=== PATIENT | male | born 1975 | race Caucasian/White ===

== ENCOUNTER → 2021-04-17 13:21 | Outpatient (CLI) | payer BC, SELFPAY | PROVIDERS: Visit Provider Nurse Practitioner | DX: U07.1 COVID-19 (principal) | CPT/HCPCS: C9803; U0003; U0005 ==

== ENCOUNTER 2022-04-28 10:50 | Emergency (ER) | payer BC, SELFPAY ==
[2022-04-28 11:10] VITALS: BP 144/86; PULSE 83; RESP 18; TEMP 37; O2SAT 98; BMI 27.3
--- NOTE | 2022-04-28 11:41 | EXP.UTC ---
Discharge Plan Disposition Patient Disposition: Home, Self-Care Condition: Good Prescriptions Prescriptions: New sulfamethoxazole-trimethoprim [Bactrim DS] 800-160 mg tablet 1 tab PO BID 7 Days Qty: 14 0RF No Action prednisone 5 MG tablets,dose pack 5 mg PO UD DOSE PK Qty: 21 0RF Referrals Follow up/Referrals: Provider,Referral, [Primary Care Provider] - See instructions Activity Restrictions/Add. Instructions Additional Instructions/Restrictions: *Monitor Temp, Over the counter Motrin or Tylenol as directed/as needed Tylenol every 4 hours and Motrin every 6 hours (as long as your family doctor has told you that you can take it) for fever or pain. and straight to ER if unable to lower temp less than 101.0 after medication given *Warm salt water gargles may help to soothe the throat *Throat Lozenges *Warm fluids like tea with honey may help to soothe the throat *Sleep elevated *Humidifier/Vaporizer Your throat swab was sent for culture. Those results are typically sent to your primary care. Be sure to follow up in 2-3 days with your family doctor/primary care physician if no improvement so they can review those result and treat if necessary. If you don?t have a primary care doctor, I recommend you get one but in the mean time, you will have to return to a walk in clinic Follow up IMMEDIATELY for new or worsening symptoms or no Noticeable improvement over the next 48-72 hours. 911 for difficulty breathing or swallowing Clinical Impressions Clinical Impression: Swelling of lymph node Stand Alone Forms Stand Alone Forms: Work/School Release Instructions Patient Instructions: Sore Throat, Trimethoprim/Sulfamethoxazole (Alternative Therapy) Discharge ED Provider: Estrella Dumont [facility] HPI General Stated complaint: Rt side of neck swollen, tender Mode of Arrival: Ambulatory Source of Information: Patient Limitations: No Limitations Time Seen by Provider: 04/28/22 11:41 Description of Symptoms (Recalled from Triage Doc. by RN): PATIENT C/O PAIN TO RIGHT NECK RADIATING TO JAW HEENT Symptoms (Recalled from RN notes): Yes Resp Symptoms (Recalled from RN notes): No Skin Symptoms (Recalled from RN notes): No MS Symptoms (Recalled from RN notes): No Functional Status (Recalled from RN notes): WNL History of Present Illness Provider Complaint: Patient states that he has sore area on the right side of his neck that when touched or he swallows shoots pain into his jaw at times States that he feels like he has a swollen area there States that he wasnt sure if he may have a bad tooth, swollen lymph node or something States that at times the right side of his throat hurts when he swallows States that he isnt having any difficulty swallowing or anything just hurts Related Data Previous Rx's Medication Instructions Recorded prednisone 5 mg tablets in a dose 5 mg PO UD DOSE PK ##21 09/05/18 pack sulfamethoxazole 800 1 tab PO BID 7 days #14 tabs 04/28/22 mg-trimethoprim 160 mg tablet (Bactrim DS) Allergies Allergy/AdvReac Type Severity Reaction Status Date / Time penicillin G [PENICILLIN G] Allergy Mild Verified 08/19/18 12:04 Worker's Comp Is this a Worker's Comp case?: No [facility] Disclaimer: The information contained in this section may have been updated after the patient was seen, as this information can be updated by other users. Medical History (Updated 04/28/22 @ 12:16 by Estrella Dumont APRN) H/O pilonidal cyst Social History (Updated 04/28/22 @ 11:17 by Micki Castorena RN) Smoking Status: Never smoker alcohol intake: never substance use type: denies use current occupational status: employed Travel in the last 8 weeks: None ROS Obtained: Yes All systems reviewed & no additional complaints except as documented and Yes Systems reviewed as appropriate & no additional complaints except as documented Constitutional Constitutional: Reports system reviewed and no a
[2022-04-28 11:46] LABS: UTC Strep Screen (Rapid) Negative (Negative)
[2022-04-28 12:22] VITALS: BP 144/86; PULSE 83; RESP 18; TEMP 37; O2SAT 98
== END 2022-04-28 12:25 | disposition home or self-care (01) ==
PROVIDERS: Emergency Provider Nurse Practitioner
DX: R59.0 Localized enlarged lymph nodes (principal)
CPT/HCPCS: 87880; 99212; 99213; G0463

== ENCOUNTER 2022-05-02 11:11 | Emergency (ER) | payer BC, SELFPAY ==
[2022-05-02 11:41] VITALS: BP 149/74; PULSE 68; RESP 16; TEMP 36.4; O2SAT 99; BMI 26.6
--- NOTE | 2022-05-02 12:10 | HMH.EDGENADL ---
Discharge Plan Disposition Patient Disposition: Home, Self-Care Prescriptions Prescriptions: New amoxicillin-pot clavulanate 875-125 mg tablet 1 tab PO BID 10 Days Qty: 20 0RF No Action sulfamethoxazole-trimethoprim [Bactrim DS] 800-160 mg tablet 1 tab PO BID prednisone 5 MG tablets,dose pack 5 mg PO UD DOSE PK Qty: 21 0RF Referrals Follow up/Referrals: Latonya Guzman MD [Primary Care Provider] - See instructions Clinical Impressions Clinical Impression: Acute cervical lymphadenitis Instructions Patient Instructions: DI for Skin Abscess Discharge ED Provider: Vasyl Vyas General Adult HPI General Chief complaint: Skin/Abscess/Foreign Body Stated complaint: Rt side of neck is swollen Time Seen by Provider: 05/02/22 12:10 Mode of Arrival: Ambulatory Source of Information: Patient Limitations: No Limitations Description of Symptoms (Recalled from ER Triage Doc. by RN): pt comes in with right sided neck pain, possible swollen lymph node. symptoms ongoing since 04/27. pt has been seen in [facility] 04/29 and his dentist 04/30. per pt report dentist stated that everything was fine with his teeth. [facility] qa automation developer prescribed bactrim. pt still taking that. History of Present Illness HPI narrative: Patient is a 46-year-old male presenting with unilateral right-sided neck pain and a small area of focal tenderness. States he went to urgent treatment clinic few days ago was prescribed Bactrim and has not had any significant improvement also went to see a dentist was told his dentition was not the cause of this. Denies any night sweats denies any fevers denies any prolonged symptoms associated with this. Denies any recent history of a throat infection or any other respiratory or upper respiratory infections. Related Data Home Medications Medication Instructions Recorded Confirmed sulfamethoxazole 800 1 tab PO BID , 05/02/22 05/02/22 mg-trimethoprim 160 mg tablet (Bactrim DS) Previous Rx's Medication Instructions Recorded prednisone 5 mg tablets in a dose 5 mg PO UD DOSE PK ##21 09/05/18 pack amoxicillin 875 mg-potassium 1 tab PO BID 10 days #20 tabs 05/02/22 clavulanate 125 mg tablet Allergies Allergy/AdvReac Type Severity Reaction Status Date / Time penicillin G [PENICILLIN G] Allergy Mild Verified 05/02/22 11:45 [facility] Disclaimer: The information contained in this section may have been updated after the patient was seen, as this information can be updated by other users. Medical History (Updated 05/02/22 @ 12:29 by Vasyl Vyas MD) H/O pilonidal cyst Social History (Updated 04/28/22 @ 11:17 by Micki Castorena RN) Smoking Status: Current every day smoker alcohol intake: never substance use type: denies use current occupational status: employed Travel in the last 8 weeks: None ROS Obtained: Yes All systems reviewed & no additional complaints except as documented Physical Exam General General appearance: alert and in no apparent distress Head Head exam: atraumatic and normocephalic Neck Neck exam: Present other (Small 1 cm area anterior cervical lymphadenitis no other masses felt posterior pharynx is normal) Respiratory Respiratory exam: Present normal lung sounds bilaterally; Absent respiratory distress, wheezes or stridor Cardiovascular Cardiovascular exam: Present regular rate Neurological Exam Neurological exam: Present alert and oriented X3 Medical Decision Making Kaveh Inquiry Pt receiving controlled substance: No Vital Signs: 05/02/22 11:41 Temperature 97.6 F Temperature Source Oral Pulse Rate [Left] 68 Respiratory Rate 16 Blood Pressure [Right Arm] 149/74 H Blood Pressure Mean [Right Arm] 99 02 Sat by Pulse Oximetry 99 Orders (Tests/Meds): ED MEDICATIONS Generic Name Dose Route Start Last Admin Trade Name Freq PRN Reason Stop Dose Admin Amoxicillin/Clavulanate Potassium 1 each 05/02/22 12:21 05/02/22 12:27 [place]
[2022-05-02 12:50] VITALS: BP 118/74; PULSE 62; RESP 18; O2SAT 98
--- NOTE | 2022-05-02 12:50 | PC.NURSE ---
rounded on pt, no needs at this time
--- NOTE | 2022-05-02 13:09 | INFXCTL.NOTE ---
pt resting no complaint at this time
[2022-05-02 13:13] VITALS: BP 118/74; PULSE 64; O2SAT 100
[2022-05-02 13:15] VITALS: BP 118/74; PULSE 70; RESP 16; TEMP 36.6
== END 2022-05-02 13:17 | disposition home or self-care (01) ==
PROVIDERS: Emergency Provider Student in an Organized Health Care Education/Training Program; PCP Family Medicine
DX: L04.0 Acute lymphadenitis of face, head and neck (principal); F17.210 Nicotine dependence, cigarettes, uncomplicated
CPT/HCPCS: 99283; 99284

== ENCOUNTER → 2022-10-11 23:29 | Outpatient (CLI) | payer BC, SELFPAY ==
[2022-10-11 18:08] LABS: Basophils % 0.2 % (0.1-2.0); Eosinophils # 1.1 K/mm3 (0.0-0.4); Eosinophils % 8.6 % (0.1-12.0); Hemoglobin 13.6 g/dL (14.1-18.0); Lymphocytes # 1.5 K/mm3 (0.7-4.5); Lymphocytes % 11.7 % (10-50); Mean Corpuscular HGB Conc 33.9 g/dL (31.8-35.4); Mean Corpuscular Hemoglobin 27.5 pg (27.0-31.2); Monocytes # 0.9 K/mm3 (0.1-1.0); Neutrophils # 9.2 K/mm3 (1.8-7.8); Neutrophils % 72.5 % (37.0-80.0); Platelet Count 291 K/mm3 (142-424); Red Blood Count 4.94 M/mm3 (4.60-6.20); Red Cell Distribution Width 12.9 % (11.5-17.5); White Blood Count 12.6 K/mm3 (4.8-10.8)
[2022-10-11 18:34] LABS: Erythrocyte Sedimentation Rate 28 mm/hr (0-15)
[2022-10-11 19:26] LABS: Alanine Aminotransferase 28 U/L (12-78); Albumin/Globulin Ratio 1.5 (1.1-1.8); Alkaline Phosphatase 93 U/L (38-126); Anion Gap 14.3 mEq/L (5-15); Aspartate Amino Transferase 30 U/L (17-59); Bilirubin,Total 0.7 mg/dl (0.2-1.3); Blood Urea Nitrogen 9 mg/dl (9-20); Calcium 9.8 mg/dl (8.4-10.2); Carbon Dioxide 29 mmol/L (22.0-30.0); Chloride 103 mmol/L (98-107); Chol/HDL Ratio 4.9 (1-3.5); Cholesterol 183 mg/dl (140-200); Estimated Glomerular Filt Rate 91 ml/min (>60); GFR (African American) 110 ML/MIN (>60); Globulin 2.7 g/dL (1.3-3.2); Glucose 81 mg/dl (74-100); HDL Cholesterol 37 mg/dl (40-60); Potassium 3.3 mmoL/L (3.5-5.1); Sodium 143 mmol/L (136-145); Total Protein,Serum 6.7 g/dl (6.3-8.2); Triglycerides 131 mg/dl (30-150); VLDL Cholesterol 26 mg/dL (0-40)
[2022-10-11 19:37] LABS: C-Reactive Protein 75.4 mg/L (0-4); Direct LDL Cholesterol 113.77 mg/dL (100-129)
[2022-10-11 19:45] LABS: 25-OH Vitamin D, Total 24.4 ng/mL (30-100)
[2022-10-11 19:47] LABS: T4 (Thyroxine) 8.7 ug/dl (5.53-11.0)
[2022-10-11 20:00] LABS: Prostate Specific Ag Screen 1.3 ng/ml (0.0-4.0); Thyroid Stimulating Hormone 0.93 uIU/mL (0.465-4.68)
== END ==
LOC: LAB.DROPOF 23:30
PROVIDERS: PCP Nurse Practitioner Family; Visit Provider Nurse Practitioner Family
DX: R59.9 Enlarged lymph nodes, unspecified (principal); E55.9 Vitamin D deficiency, unspecified; Z12.5 Encounter for screening for malignant neoplasm of prostate
CPT/HCPCS: 80053; 80061; 82306; 84436; 84443; 85025; 85651; 86140; G0103

== ENCOUNTER → 2022-10-25 13:20 | Outpatient (CLI) | payer BC, SELFPAY ==
--- NOTE | 2022-10-25 13:20 | US_ITS ---
FINAL REPORT TECHNIQUE: Real-time grayscale and color ultrasound of the thyroid was performed. CLINICAL HISTORY: right thyroid nodule COMPARISON: None FINDINGS: The thyroid gland measures 49 mm on the right and 42 mm on the left. The isthmus measures 2 mm. The parenchyma is within normal limits. Nodules: No evidence of mass or nodule. IMPRESSION: Unremarkable thyroid ultrasound. Reviewed, Interpreted and Dictated by Daniel Santos III, MD Transcribed by Larissa Jules Authenticated and [facility]
== END ==
PROVIDERS: PCP Nurse Practitioner Family; Visit Provider Nurse Practitioner Family
DX: E04.1 Nontoxic single thyroid nodule (principal)
CPT/HCPCS: 76536

== ENCOUNTER 2023-03-12 10:21 | Emergency (ER) | payer BC, SELFPAY ==
[2023-03-12 10:27] VITALS: BP 152/92; PULSE 98; RESP 18; TEMP 37.2; O2SAT 97; BMI 26.6
[2023-03-12 11:13] LABS: Influenza A, PCR Not Detected (NotDetected); Influenza B, PCR Not Detected (NotDetected)
--- NOTE | 2023-03-12 11:13 | EXP.UTC ---
Discharge Plan Disposition Patient Disposition: Home, Self-Care Condition: Good Prescriptions Prescriptions: No Action No Known Home Medications Referrals Follow up/Referrals: Provider,Referral, MD [Primary Care Provider] - See instructions Activity Restrictions/Add. Instructions Additional Instructions/Restrictions: covid swab was sent to lab, call tomorrow for results. self isolate until test results are known to be negative No sign of a bacterial infection. Likely viral. Viruses can take 7-14 days to run their course. Nasal saline and bulb syringe or nose Tarah to remove nasal drainage to help with nasal congestion. Hard to eat, drink, sleep with nasal congestion so important to keep this cleaned out. Monitor temp. Tylenol or Motrin as needed for pain or fever Encourage fluids, water, Gatorade, Powerade, Pedialyte if /toddler/child Warm salt water gargles Warm fluids Sore throat lozenges Sleep elevated Humidifier/vaporizer Follow-up immediately for new or worsening symptoms or no noticeable improvement over the next 48-72 hours. Clinical Impressions Clinical Impression: Upper respiratory disease, Close exposure to 2019-nCoV Instructions Patient Instructions: DI for Viral Upper Respiratory Infection -- Adult, DI for COVID-19 (Suspected or Confirmed ), How to Care for Someone with COVID-19 Discharge ED Provider: Elena ([facility])Theresa [facility] HPI General Stated complaint: congestion, runny nose, body aches, cough, headach Mode of Arrival: Ambulatory Source of Information: Patient Limitations: No Limitations Time Seen by Provider: 03/12/23 11:13 Description of Symptoms (Recalled from Triage Doc. by RN): WHITTAKER, cough, body aches, and chills. He wa exposed to covid. HEENT Symptoms (Recalled from RN notes): Yes Resp Symptoms (Recalled from RN notes): No Skin Symptoms (Recalled from RN notes): No MS Symptoms (Recalled from RN notes): No Functional Status (Recalled from RN notes): n/a History of Present Illness Provider Complaint: 47 yr old male presents for WHITTAKER, cough, body aches, and chills. He was exposed to covid. Related Data Home Medications Medication Instructions Recorded Confirmed No Known Home Medications 10/11/22 10/31/22 Allergies Allergy/AdvReac Type Severity Reaction Status Date / Time penicillin G [PENICILLIN G] Allergy Mild Verified 03/12/23 11:05 Worker's Comp Is this a Worker's Comp case?: No [facility] Disclaimer: The information contained in this section may have been updated after the patient was seen, as this information can be updated by other users. Medical History , [employer]OR [employer]) Dysphagia H/O pilonidal cyst Lymphadenopathy Social History , [employer]) Smoking Status: Current every day smoker alcohol intake: never substance use type: denies use current occupational status: employed Travel in the last 8 weeks: None ROS Obtained: Yes All systems reviewed & no additional complaints except as documented Constitutional Constitutional: Reports system reviewed and no additional complaints, except as documented, Reports as per HPI, Reports body ache, Reports chills, Reports fatigue and Reports fever(s) Eyes Eyes: Reports system reviewed and no additional complaints, except as documented ENT Ears, Nose, Mouth, and Throat: Reports system reviewed and no additional complaints, except as documented, Reports as per HPI, Reports nasal congestion, Reports nasal discharge, Reports post nasal drip, Reports sinus pressure and Reports sore throat Cardiovascular Cardiovascular: Reports system reviewed and no additional complaints, except as documented Respiratory Respiratory: Reports system reviewed and no additional complaints, except as documented, Reports as per HPI and Reports cough Gastrointestinal Gastrointestingal: Reports system reviewed and no additional complaints, except as documented Integumentary/Breasts Skin/Breast: Reports system reviewed and no additional complaints, except as documented Endocrine Endocrine: Reports system reviewed and no additional complaints, except as documented and Reports fatigue Hematologic/Lymphatic Henatologic/Lymphatic: Reports system reviewed and no additional complaints, except as documented Allergic/Immunologic Allergic/Immunologic: Reports system reviewed and no additional complaints, except as documented Physical Exam General General appearance: alert and in no apparent distress Head Head exam: atraumatic Eye Eye exam: Present normal appearance and PERRL ENT ENT exam: Present normal exam, normal oropharynx, mucous membranes moist and TM's normal bilaterally Respiratory Respiratory exam: Present normal lung sounds bilaterally Cardiovascular Cardiovascular exam: Present regular rate and normal rhythm Neurological Exam Neurological exam: Present alert and oriented X3 Skin Skin exam: Present warm Medical Decision Making Medical Records Medical records reviewed: Yes I reviewed the patient's medical records. Kaveh Inquiry Pt receiving controlled substance: No Kaveh was queried for this patient: No Vital Signs: 03/12/23 10:27 Temperature 98.9 F Temperature Source Oral Pulse Rate [Right Radial] 98 H Respiratory Rate 18 Blood Pressure [Right Arm] 152/92 H Blood Pressure Mean [Right Arm] 112 Blood Pressure Source [Right Arm] Automatic Cuff Blood Pressure Position [Right Arm] Sitting 02 Sat by Pulse Oximetry 97 Oxygen Delivery Method Room Air Lab Data Lab results reviewed: Yes I reviewed the patient's lab results. Orders (Tests/Meds): ORDERS Category Date Time Status Covid-19 Nasal PCR ([facility]) Routine Lab 03/12/23 10:39 Stop Req Rapid PCR Covid and Flu A/B Stat Lab 03/12/23 10:39 Received
[2023-03-12 11:20] LABS: Coronavirus 19, PCR Detected (NotDetected)
[2023-03-12 11:24] VITALS: BP 152/92; PULSE 98; RESP 18; TEMP 37.2; O2SAT 97
== END 2023-03-12 11:24 | disposition home or self-care (01) ==
PROVIDERS: Emergency Provider Nurse Practitioner Family
DX: U07.1 COVID-19 (principal); R51.9 Headache, unspecified; R50.9 Fever, unspecified; J06.9 Acute upper respiratory infection, unspecified; R05.9 Cough, unspecified; R09.81 Nasal congestion; M79.18 Myalgia, other site; R53.83 Other fatigue; R09.82 Postnasal drip; R07.0 Pain in throat; F17.210 Nicotine dependence, cigarettes, uncomplicated
CPT/HCPCS: 87635; 87636; 99212; 99214; G0463

== ENCOUNTER 2023-07-31 12:06 | Outpatient (CLI) | payer BC, SELFPAY ==
[2023-07-31 18:15] LABS: Basophils # 0.1 K/mm3 (0-0.2); Basophils % 0.7 % (0.1-2.0); Eosinophils # 1.1 K/mm3 (0.0-0.4); Eosinophils % 12.2 % (0.1-12.0); Hematocrit 46.4 % (42.0-52.0); Lymphocytes # 1.4 K/mm3 (0.7-4.5); Lymphocytes % 14.8 % (10-50); Mean Corpuscular HGB Conc 32.3 g/dL (31.8-35.4); Mean Corpuscular Hemoglobin 27.5 pg (27.0-31.2); Mean Corpuscular Volume 85.3 fl (80-94); Monocytes # 0.9 K/mm3 (0.1-1.0); Monocytes % 9.2 % (1.7-9.3); Neutrophils # 5.9 K/mm3 (1.8-7.8); Neutrophils % 63.1 % (37.0-80.0); Platelet Count 310 K/mm3 (142-424); Red Blood Count 5.44 M/mm3 (4.60-6.20); Red Cell Distribution Width 13.7 % (11.5-17.5); White Blood Count 9.4 K/mm3 (4.8-10.8)
[2023-07-31 18:31] LABS: Hemoglobin A1C 5.6 % (4.0-6.0)
[2023-07-31 18:34] LABS: Alanine Aminotransferase 42 U/L (12-78); Albumin Level 3.9 g/dl (3.5-5.0); Albumin/Globulin Ratio 1.3 (1.1-1.8); Alkaline Phosphatase 95 U/L (38-126); Anion Gap 13.8 mEq/L (5-15); Aspartate Amino Transferase 34 U/L (17-59); Bilirubin,Total 1.1 mg/dl (0.2-1.3); Blood Urea Nitrogen 9 mg/dl (9-20); Calcium 9.1 mg/dl (8.4-10.2); Carbon Dioxide 29 mmol/L (22.0-30.0); Chloride 102 mmol/L (98-107); Estimated Glomerular Filt Rate 91 ml/min (>60); GFR (African American) 110 ML/MIN (>60); Globulin 2.9 g/dL (1.3-3.2); Glucose 88 mg/dl (74-100); Potassium 3.8 mmoL/L (3.5-5.1); Sodium 141 mmol/L (136-145); Total Protein,Serum 6.8 g/dl (6.3-8.2)
[2023-07-31 18:53] LABS: 25-OH Vitamin D, Total 14.8 ng/mL (30-100)
[2023-07-31 19:06] LABS: Thyroid Stimulating Hormone 0.66 uIU/mL (0.465-4.68)
[2023-07-31 19:25] LABS: Vitamin B12 848 pg/mL (239-931)
== END 2023-07-31 23:59 | disposition home or self-care (01) ==
LOC: LAB.DROPOF 08-01 12:07
PROVIDERS: PCP Nurse Practitioner Family; Visit Provider Nurse Practitioner Family
DX: R53.83 Other fatigue (principal); E55.9 Vitamin D deficiency, unspecified; Z68.29 Body mass index [BMI] 29.0-29.9, adult
CPT/HCPCS: 80053; 82306; 82607; 83036; 84443; 85025

== ENCOUNTER 2023-08-01 15:45 | Outpatient (CLI) | payer BC, SELFPAY ==
[2023-08-01 15:48] LABS: Adenovirus F 40/41, stool Not Detected (NotDetected); Astrovirus Not Detected (NotDetected); Campylobacter Not Detected (NotDetected); Clostridium Difficile A/B, PCR Not Detected (NotDetected); Cryptosporidium Not Detected (NotDetected); Cyclospora Cayetanesis Not Detected (NotDetected); Entamoeba histolytica Not Detected (NotDetected); Enteroaggregative E coli Not Detected (NotDetected); Enteropathogenic E coli Not Detected (NotDetected); Enterotoxigenic E coli Not Detected (NotDetected); Giardia lamblia Not Detected (NotDetected); Norovirus Not Detected (NotDetected); Plesimonas Shigalloides, PCR Not Detected (NotDetected); Rotavirus A Not Detected (NotDetected); Salmonella, PCR Not Detected (NotDetected); Sapovirus Not Detected (NotDetected); Shiga-like toxin E coli Not Detected (NotDetected); Shigella Enterovasive E coli Not Detected (NotDetected); Vibrio Cholerae Not Detected (NotDetected); Vibrio, PCR Not Detected (NotDetected); Yersinia Entercolitica, PCR Not Detected (NotDetected)
== END 2023-08-01 23:59 | disposition home or self-care (01) ==
LOC: LAB 15:46
PROVIDERS: PCP Nurse Practitioner Family; Visit Provider Nurse Practitioner Family
DX: R53.83 Other fatigue (principal); R19.7 Diarrhea, unspecified
CPT/HCPCS: 87507

== ENCOUNTER 2023-11-23 09:14 | Emergency (ER) | payer BC, SELFPAY ==
--- OUTSIDE RECORDS SUMMARY | 2023-11-23 09:18 | XMS_ITS ---
Author Organization [facility] Address [address] [address] Phone Care Team Providers Care Pediatric Lpn Name Role Phone eNal DOLL, Tyson Unavailable [phone] NO, PCP Unavailable Unavailable Reason for Referral Date Encounter Description Provider Reason for Referral 06/14/21 FOLLOW UP/EST DAYANA MARQUEZ PA-C Refe rral To Physician 05/07/21 WC FOLLOW UP/EST DAYANA MARQUEZ PA-C Refe rral To Physician 04/05/21 NEW PATIENT DAYANA MARQUEZ PA-C Referr al To Physician Problems Includes: Active, inactive, and resolved Problems All Visits Onset Date Resolved Date Provider Condition S tatus Lower Back Pain 04/05/2021 DAYANA MARQUEZ PA-C Active Last Documented On 2 1:46PM ; [facility] Plan of Treatment Pending Tests Order Diagnosis Results Due Ordering P rovider Radiology - MRI MRI Lumbar Spine 04/19/21 KATIA MARQUEZ PA-C Last Documented On 2 4:27PM ; [facility] Instructions to patient Intervention and counseling on cessation of tobacco use Last Documented On 2 1:02PM ; [facility] Lose weight Last Documented On 2 1:02PM ; [facility] Intervention and counseling on cessation of tobacco use Last Documented On 2 3:11PM ; [facility] Lose weight Last Documented On 2 3:11PM ; [facility] Intervention and counseling on cessation of tobacco use Last Documented On 2 9:38AM ; [facility] Lose weight Last Documented On 2 9:38AM ; [facility] Intervention and counseling on cessation of tobacco use Last Documented On 2 2:03PM ; [facility] Lose weight Last Documented On 2 1:48PM ; [facility] Assessments Includes: Assessments for all patient encounters No Assessments Recorded Instructions Includes: Instructions for all patient encounters Instructions to patient Intervention and counseling on cessation of tobacco use Last Documented On 2 1:02PM ; [facility] Lose weight Last Documented On 2 1:02PM ; [facility] Intervention and counseling on cessation of tobacco use Last Documented On 2 3:11PM ; [facility] Lose weight Last Documented On 2 3:11PM ; [facility] Intervention and counseling on cessation of tobacco use Last Documented On 2 9:38AM ; [facility] Lose weight Last Documented On 2 9:38AM ; [facility] Intervention and counseling on cessation of tobacco use Last Documented On 2 2:03PM ; [facility] Lose weight Last Documented On 2 1:48PM ; [facility], [facility] Medical Equipment - Implanted Devices Includes: Current and historical Devices No Medical Equipment Recorded Medications Includes: Current and historical Medications Past Medications on file Medrol 4 MG Oral Tablet Ther apy Pack 06/11/2021 - 06/18/2021 Provider: Tyson De Jesus MD Diagnosis: take as directed Last Documented On 2 12:35PM By Jennie Otero ; [facility] Fluticasone Propionate 50 MC G/ACT Nasal Suspension 02/05/2021 - 06/14/2021 Provider: Diagnosis: Last Documented On 2 3:14PM By Alexandra BARBA [facility] Medications Administered Includes: Administered Medications in patient's chart No Administered Medications Recorded Results Includes: Results from 11/22/2022 through 11/23/2023 No Results Recorded For Specified Dates History of Present Illness History of Present Illness not supported for this document type No History of Present Illness Recorded Social History Description Last Updated No caffeine use 05/07/2021 Last Documented On 2 10:12AM ; [facility], [facility] No recent change in diet 05/07/2021 Last Documented On 2 10:12AM ; [facility], [facility] Not using alcohol 05/07/2021 Last Documented On 2 10:12AM ; [facility] Not using drugs 05/07/2021 Last Documented On 2 10:12AM ; [facility], [facility] Smoker 04/05/2021 Last Documented On 2 8:05AM ; [facility], [facility] Yes, current smoker. 04/05/2021 Last Documented On 2 8:05AM ; [facility], [facility] Not exercising regularly 04/05/2021 Last Documented On 2 8:05AM ; [facility], [facility] Smoking Status Unknown Medical History Includes: Medical History in patient's chart Description Last Updated No recent immunization for flu 2 Last Documented On 2 10:12AM ; [facility] No recent immunization for pneumococcal pneumonia 05/07/2021 Last Documented On 2 10:12AM ; [facility] Past medical history non-contributory Last Documented On 2 8:05AM ; [facility], [facility] Past Surgical History: pylanautel cyst r emoved from tail [id number] 04/05/2021 Last Documented On 2 8:05AM ; [facility], [facility] Family History Includes: Family History in patient's chart Description Last Updated No significant family history 05/07/2021 Last Documented On 2 10:12AM ; [facility], [facility] Review of Systems Review of Systems not supported for this document type No Review of Systems Recorded Mental Status No Mental Status Recorded Functional Status No Functional Status Recorded Physical Exam Physical Exam not supported for this document type No Physical Exam Recorded Allergies Includes: Active, inactive, and resolved Allergies Substance Type Reaction Onset Date Resolved Date Statu s Penicillins Allergy 04/05/2021 Active Last Documented On 2 1:02PM ; [facility], [facility] Insurance Includes: Active Insurance Policies Plan Name Member ID Group # Subscriber Relationship Effect hannah Dates 1 - [facility] [id number] RENETTA CARREON Self 01/24/2021 - Unknown Clinical Notes Includes: Signed Clinical Notes starting from 02/21/2022 No Clinical Notes Recorded
--- OUTSIDE RECORDS SUMMARY | 2023-11-23 09:18 | XMS_ITS | Clinical Summary ---
Author Organization [facility] , [facility] Address [address] [place] [address] Phone Care Team Providers Care Director Specialty Name Role Phone Tyson De Jesus MD Unavailable [phone] NO, PCP Unavailable Unavailable Reason for Visit and Chief Complaint WC EPIDURAL INJ Problems Includes: Problems addressed during this encounter and other active Problems All Visits Onset Date Resolved Date Provider Condition S tatus Lower Back Pain 04/05/2021 DAYANA MARQUEZ PA-C Active Last Documented On 2 1:46PM ; [facility] Plan of Treatment No Plan of Treatment Recorded Assessments Includes: Assessments from this encounter No Assessments Recorded Medical Equipment - Implanted Devices Includes: Current Devices No Medical Equipment Recorded Medications Includes: Medications discussed during this encounter and other current Medications No Medications Taken Medications Administered Includes: Administered Medications from this encounter No Administered Medications Recorded Results Includes: Results discussed during this encounter No Results Recorded For Specified Dates History of Present Illness Includes: History of Present Illness from this encounter No History of Present Illness Recorded Social History No Social History Recorded - Smoking Status Unknown Medical History Includes: Medical History addressed during this encounter No Medical History Recorded Family History Includes: Family History addressed during this encounter No Family History Recorded Review of Systems Includes: Review of Systems from this encounter No Review of Systems Recorded Mental Status Includes: Mental Status from this encounter No Mental Status Recorded Functional Status Includes: Functional Status from this encounter No Functional Status Recorded Physical Exam Includes: Physical Exam from this encounter No Physical Exam Recorded Allergies Includes: Active Allergies Substance Type Reaction Onset Date Resolved Date Statu s Penicillins Allergy 04/05/2021 Active Last Documented On 2 1:02PM ; [facility] Encounters Encounter Provider Location Date Check-In Time Check-Out Time Diagnosis WC EPIDURAL INJ Tyson De Jesus MD [facility] 11/24/19 22 11:55AM 12:09PM Insurance Includes: Active Insurance Policies Plan Name Member ID Group # Subscriber Relationship Effect hannah Dates [facility] [id number] RENETTA CARREON Self 01/24/2021 - Unknown Clinical Notes Includes: Clinical Notes from this encounter No Clinical Notes Recorded
--- OUTSIDE RECORDS SUMMARY | 2023-11-23 09:18 | XMS_ITS | Clinical Summary ---
Author Organization [facility] , [facility] Address [address] [place] [address] Phone Care Team Providers Care Warp Spinner Name Role Phone Neal DOLL, Tyson Unavailable [phone] NO, PCP Unavailable Unavailable Reason for Visit and Chief Complaint Epidural Steroid Injection Problems Includes: Problems addressed during this encounter and other active Problems All Visits Onset Date Resolved Date Provider Condition S tatus Lower Back Pain 04/05/2021 DAYANA MARQUEZ PA-C Active Last Documented On 2 1:46PM ; [facility] Plan of Treatment No Plan of [...] Active Last Documented On 2 1:02PM ; [facility] Encounters Encounter Provider Location Date Check-In Time Check-Out Time Diagnosis Epidural Steroid Injection Tyson De Jesus MD 2 4:16PM 11:59PM Insurance Includes: Active Insurance Policies Plan Name Member ID Group # Subscriber Relationship Effect hannah Dates 1 - [facility] [id number] RENETTA CARREON Self 01/24/2021 - Unknown Clinical Notes Includes: Clinical Notes from this encounter No Clinical Notes Recorded
--- OUTSIDE RECORDS SUMMARY | 2023-11-23 09:18 | XMS_ITS | Clinical Summary ---
Author Organization [facility] , [facility] Address [address] [place] [address] Phone Care Team Providers Care Metallurgy Laboratory Technician Name Role Phone Neal DOLL, Tyson Unavailable [phone] NO, PCP Unavailable Unavailable Reason for Visit and Chief Complaint Epidural Steroid Injection Problems Includes: Problems addressed during this encounter and other active Problems All Visits Onset Date Resolved Date Provider Condition S tatus Lower Back Pain 04/05/2021 DAYANA MARQUEZ PA-C Active Last Documented On 2 1:46PM ; [facility] Plan of Treatment No Plan of Treatment [...] Active Last Documented On 2 1:02PM ; [facility] Encounters Encounter Provider Location Date Check-In Time Check-Out Time Diagnosis Epidural Steroid Injection Tyson De Jesus MD 2 9:34AM 11:59PM Insurance Includes: Active Insurance Policies Plan Name Member ID Group # Subscriber Relationship Effect hannah Dates 1 - [employer] [id number] RENETTA CARREON Self 01/24/2021 - Unknown Clinical Notes Includes: Clinical Notes from this encounter No Clinical Notes Recorded
--- OUTSIDE RECORDS SUMMARY | 2023-11-23 09:18 | XMS_ITS | Clinical Summary ---
Author Organization [facility] , [facility] Address [address] [place] [address] Phone Care Team Providers Care Wheel Polisher Name Role Phone Neal DOLL, Tyson Unavailable [phone] NO, PCP Unavailable Unavailable Reason for Visit and Chief Complaint Epidural Steroid Injection Problems Includes: Problems addressed during this encounter and other active Problems All Visits Onset Date Resolved Date Provider Condition S tatus Lower Back Pain 04/05/2021 DAYANA MARQUEZ PA-C Active Last Documented On 2 1:46PM ; [facility] Plan of Treatment No Plan of [...] Active Last Documented On 2 1:02PM ; [facility] Encounters Encounter Provider Location Date Check-In Time Check-Out Time Diagnosis Epidural Steroid Injection Tyson De Jesus MD 2 2:58PM 11:59PM Insurance Includes: Active Insurance Policies Plan Name Member ID Group # Subscriber Relationship Effect hannah Dates 1 - [facility] [id number] RENETTA CARREON Self 01/24/2021 - Unknown Clinical Notes Includes: Clinical Notes from this encounter No Clinical Notes Recorded
--- OUTSIDE RECORDS SUMMARY | 2023-11-23 09:18 | XMS_ITS ---
Care Plan - [facility], [facility] Created on: November 23, 2023 RENETTA CARREON : 1975 Sex: Male Author Organization [facility] , [facility] Address [address] [place] [address] Phone Care Team Providers Care Flask Maker Name Role Phone Tyson De Jesus MD Unavailable Unavailable NO, PCP Unavailable Unavailable
--- OUTSIDE RECORDS SUMMARY | 2023-11-23 09:19 | XMS_ITS | Clinical Summary ---
Author Organization [facility] , [facility] Address [address] [place] [address] Phone Care Team Providers Care Adult Basic Education Teacher Name Role Phone Tyson De Jesus MD Unavailable [phone] NO, PCP Unavailable Unavailable Reason for Visit and Chief Complaint The Chief Complaint is: lower back pain Problems Includes: Problems addressed during this encounter and other active Problems Current Visit Onset Date Resolved Date Provider Evan gutierrez Status Lower Back Pain 04/05/2021 DAYANA MARQUEZ PA-C Active Last Documented On 2 1:46PM ; [facility] Plan of Treatment Patient does not require any surgical treatment. To treat what he has been to likely be a decompression of the nerve roots at the L3 445 levels. Possible fusion. Symptoms are currently under control other than having some residual numbness and tingling. He is not on any work restrictions. He may require the occasional epidural injection if his pain increases. This can be done on a therapeutic schedule. Otherwise follow-up as needed. 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 Pain is no longer a problem for him since the epidural injection. Just residual numbness. Patient states that he can live with what he has currently. - Last Documented On 07/26/2021 1:38PM ; [facility] Instructions Includes: Instructions from this encounter Instructions to patient Intervention and counseling on cessation of tobacco use Last Documented On 2 1:02PM ; [facility] Lose weight Last Documented On 2 1:02PM ; [facility] Medical Equipment - Implanted Devices Includes: Current Devices No Medical Equipment Recorded Medications Includes: Medications discussed during this encounter and other current Medications Past Medications on file Medrol 4 MG Oral Tablet Ther apy Pack 06/11/2021 - 06/18/2021 Provider: Tyson De Jesus MD Diagnosis: take as directed Last Documented On 2 12:35PM By Jennie Otero ; [facility] Medications Administered Includes: Administered Medications from this encounter No Administered Medications Recorded Vital Signs Includes: Vital Signs from this encounter Vital Name 07/26/2021 01:16P Blood Pressure Sitting (mmHg) 152/98 Pulse Rate-Sitting (bpm) 79 Height (in) 72 Weight (lb) 201.6 Body Mass Index (kg/m2) 27.3 Body Surface Area (m2) 2.1 Note: rd Last Documented: On 07/26/2021 1:16PM ; [facility] Results Includes: Results discussed during this encounter No Results Recorded For Specified Dates History of Present Illness Includes: History of Present Illness from this encounter JANE Blum is a 46 year old male. - Allergy list reviewed - Problem list reviewed - Medication reconciliation performed - Medication list reviewed - Yes, previous treatment. - History of Physical Therapy - History of Injections 06/06/2021-BHAVNA L3-4 Patient returns following recent lumbar epidural injection. Is given at the L3-4 level. As far as pain is concerned the injection seemed to resolve this for him. He still has some numbness along the lateral hip and thigh area. It is not affecting his function. He is doing his regular work. He has no noted disc degeneration with disc bulging and some foraminal stenosis at the L3-4 and 4 5 levels. Social History Description Last Updated No caffeine use 05/07/2021 Last Documented On 2 1:02PM ; [facility] No recent change in diet 05/07/2021 Last Documented On 2 1:02PM ; [facility] Not using alcohol 05/07/2021 Last Documented On 2 1:02PM ; [facility] Not using drugs 05/07/2021 Last Documented On 2 1:02PM ; [facility], [facility] Smoker 04/05/2021 Last Documented On 2 1:02PM ; [facility], [facility] Yes, current smoker. 04/05/2021 Last Documented On 2 1:02PM ; [facility], [facility] Not exercising regularly 04/05/2021 Last Documented On 2 1:02PM ; [facility], [facility] Smoking Status Unknown Procedures and Surgical History Includes: Procedures from this encounter Procedures Code Diagnosis Performing Provider Service L ocation Service Date intervention and counseling on cessation of tobacco use 4000F Last Documented On 2 1:02PM ; [facility] use of tobacco assessment performed 1000F Last Documented On 2 1:02PM ; [facility] no influenza immunization patient refuse d Last Documented On 2 1:02PM ; [facility], [facility] follow-up visit in one month with PCP fo r elevated BP Last Documented On 2 1:03PM ; [facility] an X-ray was performed [id number] Last Documented On 2 1:02PM ; [facility] an MRI was performed 04/27/2021-MRI Humberto @ [facility] ~ [id number] Last Documented On 2 1:02PM ; [facility] Medical History Includes: Medical History addressed during this encounter Description Last Updated No recent immunization for flu 2 Last Documented On 2 1:02PM ; [facility] No recent immunization for pneumococcal pneumonia 05/07/2021 Last Documented On 2 1:02PM ; [facility], [facility] Past medical history non-contributory Last Documented On 2 1:02PM ; [facility], [facility] Past Surgical History: pylanautel cyst r emoved from tail [id number] 04/05/2021 Last Documented On 2 1:02PM ; [facility] Family History Includes: Family History addressed during this encounter Description Last Updated No significant family history 05/07/2021 Last Documented On 2 1:02PM ; [facility] Review of Systems Includes: Review of Systems from this encounter Systemic: Not feeling tired, no recent weight loss, and no recent weight gain. Head: No headache and no sinus pain. Eyes: No vision problems, no Cataracts, no Glasses/Contacts, and no Glaucoma. Otolaryngeal: No hearing loss and no tinnitus. Cardiovascular: No chest pain or discomfort, no palpitations, no Hypertension, and no High Cholesterol. Pulmonary: No daytime asthma symptoms and no chronic cough. No wheezing. Gastrointestinal: No heartburn and no abdominal pain. No Indigestion, no Acid Reflux, no Peptic Ulcer, no GI Stomach Bleed, and no Ulcers. Endocrine: No hot flashes, no muscle weakness, no Diabetes, no Hypothyroid, and no Hyperthyroid. Hematologic: No easy bleeding, no tendency for easy bruising, and no Anemia. Musculoskeletal: No Arthritis. Lower back pain. No soft tissue swelling. Pain localized to one or more joints. Neurological: No dizziness, no convulsions, and no numbness. Psychological: No anxiety, no emotional lability, no depression, and no insomnia. Not crying for no reason. Skin: No dry skin. No Ulcers, no Scars, and no rash. Allergic and Immunologic: No complaint of seasonal allergic reaction. reviewed 07/26/2021 Mental Status Includes: Mental Status from this encounter Description No anxiety Functional Status Includes: Functional Status from this encounter No Functional Status Recorded Physical Exam Includes: Physical Exam from this encounter Allergies Includes: Active Allergies Substance Type Reaction Onset Date Resolved Date Statu s Penicillins Allergy 04/05/2021 Active Last Documented On 2 1:02PM ; [facility] Encounters Encounter Provider Location Date Check-In Time Check-Out Time Diagnosis WC FOLLOW UP/EST DAYANA MARQUEZ PA-C [facility] 07/27/19 22 1:00PM 1:36PM Insurance Includes: Active Insurance Policies Plan Name Member ID Group # Subscriber Relationship Effect hannah Dates - [id number] RENETTA BLUM Self 01/24/2021 - Unknown Clinical Notes Includes: Clinical Notes from this encounter No Clinical Notes Recorded
[2023-11-23 09:20] VITALS: BP 164/118; PULSE 92; RESP 19; TEMP 36.6; O2SAT 98; BMI 26.7
--- NOTE | 2023-11-23 09:32 | ED_ITS ---
Discharge Plan Disposition Patient Disposition: Home, Self-Care Condition: Good Prescriptions Prescriptions: New doxycycline hyclate 100 mg capsule 100 mg PO BID 7 Days Qty: 14 0RF methylprednisolone [Medrol (West)] 4 mg tablets,dose pack See Rx Instructions .Route .COMPLEX 6 Days Qty: 21 0RF Rx Instructions: taper pack; fluticasone propionate [Flonase Allergy Relief] 50 mcg/actuation spray,suspension 2 spray intranasal DAILY Qty: 16 0RF Rx Instructions: administer into each nostril daily Referrals Follow up/Referrals: Provider,Referral, MD [Primary Care Provider] - See instructions Activity Restrictions/Add. Instructions Additional Instructions/Restrictions: Take medication as prescribed Use flonase as prescribed Make sure to drink plenty of fluids Follow up with your Family Doctor if no improvement return if needed Straight to ER if any life threatening symptoms Follow up with your Family Doctor for recheck of your blood pressure Clinical Impressions Clinical Impression: Sinusitis Qualifiers: Sinusitis location: unspecified location Chronicity: unspecified Qualified Code(s): J32.9 - Chronic sinusitis, unspecified Instructions Patient Instructions: DI for Sinusitis, Sinusitis Print Language Print Language: Telugu Discharge ED Provider: Estrella Dumont [facility] HPI General Stated complaint: congestion, sinus pressure Mode of Arrival: Ambulatory Source of Information: Patient Limitations: No Limitations Time Seen by Provider: 11/23/23 09:32 Description of Symptoms (Recalled from Triage Doc. by RN): PATIENT C/O NASAL CONGESTION, HEADACHE, AND TENDERNESS TO NOSE FOR APPROX 1 WEEK HEENT Symptoms (Recalled from RN notes): Yes Resp Symptoms (Recalled from RN notes): No Skin Symptoms (Recalled from RN notes): No MS Symptoms (Recalled from RN notes): No Functional Status (Recalled from RN notes): WNL History of Present Illness Provider Complaint: Patient states that he has been having sinus pain and pressure, pressure behind his eyes and even his nose feels sore and sinus headache States he has been taking OTC sinus medication but hasnt helped much and since it had been going on a week he came in to get checked Related Data Previous Rx's ?Medication ?Instructions ?Recorded doxycycline hyclate 100 mg capsule 100 mg PO BID 7 days #14 caps 11/23/23 fluticasone propionate 50 2 spray intranasal DAILY #16 grams 11/23/23 mcg/actuation nasal spray,suspension (Flonase Allergy Relief) methylprednisolone 4 mg tablets in See Rx Instructions .Route 11/23/23 a dose pack (Medrol (West)) .COMPLEX 6 days #21 tabs Allergies Allergy/AdvReac Type Severity Reaction Status Date / Time penicillin G [PENICILLIN G] Allergy Mild Verified 07/31/23 14:47 Worker's Comp Is this a Worker's Comp case?: No [facility] Disclaimer: The information contained in this section may have been updated after the patient was seen, as this information can be updated by other users. Medical History (Updated 11/23/23 @ 09:38 by Estrella Dumont APRN) Lymphadenopathy Dysphagia H/O pilonidal cyst Social History Smoking Status: Current every day smoker alcohol intake: never substance use type: denies use current occupational status: employed Travel in the last 8 weeks: None ROS Obtained: Yes All systems reviewed & no additional complaints except as documented and Yes Systems reviewed as appropriate & no additional complaints except as documented Constitutional Constitutional: Reports system reviewed and no additional complaints, except as documented, Reports as per HPI and Reports headache(s) ENT Ears, Nose, Mouth, and Throat: Reports system reviewed and no additional complaints, except as documented, Reports as per HPI, Reports headache(s), Reports sinus pain and Reports sinus pressure Cardiovascular Cardiovascular: Reports system reviewed and no additional complaints, except as documented and Reports as per HPI Respiratory Respiratory: Reports system reviewed and no additional complaints, except as documented and Reports as per HPI Gastrointestinal Gastrointestingal: Reports system reviewed and no additional complaints, except as documented and as per HPI Neurologic Neurologic: Reports headache(s) Physical Exam General General appearance: alert and in no apparent distress ENT ENT exam: Present mucous membranes moist Expanded ENT Exam Nose exam: Present sinus tenderness Respiratory Respiratory exam: Present normal lung sounds bilaterally; Absent respiratory distress or wheezes Cardiovascular Cardiovascular exam: Present regular rate, normal rhythm and normal heart sounds Abdominal Exam Abdominal exam: Present soft and normal bowel sounds; Absent distention or tenderness Neurological Exam Neurological exam: Present alert, oriented X3 and normal gait Medical Decision Making Kaveh Inquiry Pt receiving controlled substance: No Kaveh was queried for this patient: No Vital Signs: 11/23/23 09:20 Temperature 97.8 F Temperature Source Oral Pulse Rate [Left Brachial] 92 H Respiratory Rate 19 Blood Pressure [Left Arm] 164/118 H Blood Pressure Mean [Left Arm] 133 Blood Pressure Source [Left Arm] Automatic Cuff Blood Pressure Position [Left Arm] Sitting 02 Sat by Pulse Oximetry 98 Oxygen Delivery Method Room Air
[2023-11-23 09:41] VITALS: BP 149/97; PULSE 92; RESP 19; TEMP 36.6; O2SAT 98
== END 2023-11-23 09:43 | disposition home or self-care (01) ==
PROVIDERS: Emergency Provider Nurse Practitioner
DX: J01.90 Acute sinusitis, unspecified (principal); R51.9 Headache, unspecified
CPT/HCPCS: 99212; 99214; G0463

== ENCOUNTER 2023-12-08 14:55 | Outpatient (CLI) | payer BC, SELFPAY ==
--- NOTE | 2023-12-08 15:07 | XR_ITS ---
FINAL REPORT CLINICAL HISTORY: stomach pains COMPARISON: None FINDINGS: Flat and upright views of the abdomen with PA view chest were obtained. There is a moderate stool burden without an obstructive pattern. There are no abnormally dilated loops of bowel. There is no free air. There are no abnormal calcifications. IMPRESSION: Moderate stool burden. Reviewed, Interpreted and Dictated by Jhon Yo MD Transcribed by Michelle Wilkes Authenticated and [facility]
== END 2023-12-08 23:59 | disposition home or self-care (01) ==
LOC: RAD 15:00
PROVIDERS: PCP Nurse Practitioner Family; Visit Provider Nurse Practitioner Family
DX: R10.9 Unspecified abdominal pain (principal)
CPT/HCPCS: 74021

== ENCOUNTER 2023-12-15 15:55 | Emergency (ER) | payer BC, SELFPAY ==
[2023-12-15 15:56] VITALS: BP 160/97; PULSE 89; RESP 18; TEMP 36.6; O2SAT 97; BMI 27.6
--- NOTE | 2023-12-15 16:17 | HMH.EDGENADL ---
Discharge Plan Disposition Patient Disposition: Home, Self-Care Prescriptions Prescriptions: New amoxicillin-pot clavulanate 875-125 mg tablet 1 tab PO BID Qty: 20 0RF No Action doxycycline hyclate 100 mg capsule 100 mg PO BID 7 Days Qty: 14 0RF methylprednisolone [Medrol (West)] 4 mg tablets,dose pack See Rx Instructions .Route .COMPLEX 6 Days Qty: 21 0RF Rx Instructions: taper pack; fluticasone propionate [Flonase Allergy Relief] 50 mcg/actuation spray,suspension 2 spray intranasal DAILY Qty: 16 0RF Rx Instructions: administer into each nostril daily Referrals Follow up/Referrals: Reggie Payan II, MD [Staff Physician] - See instructions Latonya Guzman MD [Primary Care Provider] - See instructions Activity Restrictions/Add. Instructions Additional Instructions/Restrictions: Please call in the morning to make your follow-up appointment with gastroenterology. Please take your antibiotic until it is all gone. Return to the emergency department as needed for any worsening signs or symptoms. I still recommend collecting a stool specimen for further evaluation at some point. Clinical Impressions Clinical Impression: Acute colitis Instructions Patient Instructions: DI for Colitis Print Language Print Language: Maori Discharge ED Provider: Robinson Key General Adult HPI <TOYIN Ortez - Last Filed: 12/15/23 21:42> General Chief complaint: Abdominal Pain Stated complaint: sent by Thomas- inez pain Time Seen by Provider: 12/15/23 16:17 History of Present Illness HPI narrative: Patient sent from his PCPs office for evaluation of abdominal pain. Patient gives a 4-week history of intermittent crampy abdominal pain along with loose stool. Patient also has had an episode of dark stool however he has been taking milk of magnesia and attempt to treat with home remedies. Patient also has a several month history of congestion and also has been evaluated by his PCP for that placed on antibiotics last week. He is also expectantly being referred to ENT for further evaluation for that problem. He denies any fever chills hemoptysis hematochezia melena nausea vomiting Related Data Previous Rx's ?Medication ?Instructions ?Recorded doxycycline hyclate 100 mg capsule 100 mg PO BID 7 days #14 caps 11/23/23 fluticasone propionate 50 2 spray intranasal DAILY #16 grams 11/23/23 mcg/actuation nasal spray,suspension (Flonase Allergy Relief) methylprednisolone 4 mg tablets in See Rx Instructions .Route 11/23/23 a dose pack (Medrol (West)) .COMPLEX 6 days #21 tabs amoxicillin 875 mg-potassium 1 tab PO BID #20 tabs 12/15/23 clavulanate 125 mg tablet Allergies Allergy/AdvReac Type Severity Reaction Status Date / Time penicillin G [PENICILLIN G] Allergy Mild Verified 07/31/23 14:47 PFSH <TOYIN Ortez - Last Filed: 12/15/23 21:42> [facility] Disclaimer: The information contained in this section may have been updated after the patient was seen, as this information can be updated by other users. Medical History (Updated 12/15/23 @ 17:54 by TOYIN Ortez) Lymphadenopathy Dysphagia H/O pilonidal cyst Social History Smoking Status: Current every day smoker alcohol intake: never substance use type: denies use current occupational status: employed Travel in the last 8 weeks: None Other Medical History Have you received the Flu Vaccine for this season: No Have you received the Pneumonia Vaccine: No <TOYIN Ortez - Last Filed: 12/15/23 21:42> ROS Obtained: Yes Systems reviewed as appropriate & no additional complaints except as documented Physical Exam <TOYIN Ortez - Last Filed: 12/15/23 21:42> General General appearance: alert and in no apparent distress Respiratory Respiratory exam: Present normal lung sounds bilaterally Cardiovascular Cardiovascular exam: Present regular rate Neurological Exam Neurological exam: Present alert and oriented X3 Medical Decision Making <TOYIN Ortez - Last Filed: 12/15/23 21:42> Medical Records Medical records reviewed: Yes I reviewed the patient's medical records. Screening: Per USPSTF and CDC recommendations, given the prevalence of disease in our region, it is our hospital?s policy to screen for HIV and viral Hepatitis for all patients aged 18 and over and those with ongoing risk factors. Kaveh Inquiry Pt receiving controlled substance: No Vital Signs: 12/15/23 15:56 12/15/23 18:05 Temperature 97.9 F 98.0 F Temperature Source Oral Oral Pulse Rate 94 H Pulse Rate [Radial] 89 Respiratory Rate 18 18 Blood Pressure 143/85 H Blood Pressure [Right Arm] 160/97 H Blood Pressure Mean [Right Arm] 118 Blood Pressure Source Automatic Cuff Blood Pressure Source [Right Arm] Automatic Cuff Blood Pressure Position Sitting Blood Pressure Position [Right Arm] Sitting 02 Sat by Pulse Oximetry 97 Oxygen Delivery Method Room Air Room Air Lab Data Lab results reviewed: Yes I reviewed the patient's lab results. Lab Results 12/15/23 16:15: WBC 11.7 H, RBC 5.13, Hgb 13.6 L, Hct 42.1, MCV 82.1, MCH 26.6 L, MCHC 32.4, RDW 13.8, Plt Count 468 H, MPV 6.8 L, Neut % (Auto) 75.5, Lymph % (Auto) 13.7, Callahan % (Auto) 5.6, Eos % (Auto) 4.5, Baso % (Auto) 0.7, Neut # (Auto) 8.9 H, Lymph # (Auto) 1.6, Callahan # (Auto) 0.7, Eos # (Auto) 0.5 H, Baso # (Auto) 0.1, ESR 15, Sodium 137, Potassium 3.6, Chloride 100, Carbon Dioxide 32 H, Anion Gap 8.6, BUN 9, Creatinine 0.70, Estimated Creat Clear 168, Estimated GFR 121, Est GFR ( Amer) 147, Glucose 118 H, Calcium 9.4, Magnesium 2.2, Total Bilirubin 0.4, AST 24, ALT 29, Alkaline Phosphatase 108, C-Reactive Protein 111.4 H, Total Protein 7.1, Albumin 3.6, Globulin 3.5 H, Albumin/Globulin Ratio 1.0 L, HIV 1&2 Antibody Rapid Nonreactive 12/15/23 16:15 12/15/23 16:15 Orders (Tests/Meds): ED MEDICATIONS Discontinued Medications Generic Name Dose Route Start Last Admin Trade Name Freq PRN Reason Stop Dose Admin Iopamidol 75 ml 12/15/23 17:04 12/15/23 17:04 Iopamidol-370 (76%);100ml Bottle IV 12/15/23 17:05 75 ml ONCE ONE Administration Sodium Chloride 10 ml 12/15/23 17:04 12/15/23 17:04 Sodium Chloride 0.9% 10ml Syr (Rad Only) IV 12/15/23 17:05 10 ml ONCE ONE Administration ORDERS Category Date Time Status CT abdomen pelvis w con Stat Cat Scan 12/15/23 16:38 Completed CBC w/Auto Diff [Complete Blood Count Auto Diff] Stat Lab 12/15/23 16:15 Completed CMP [Comprehensive Metabolic Panel] Stat Lab 12/15/23 16:15 Completed CRP [C-Reactive Protein] Stat Lab 12/15/23 16:15 Completed ESR [Erythrocyte Sedimentation Rate] Stat Lab 12/15/23 16:15 Completed HIV (1&2) Antibody Rapid Stat Lab 12/15/23 16:15 Completed Hep C Ab with Reflex to RNA Stat Lab 12/15/23 16:15 Received Magnesium Stat Lab 12/15/23 16:15 Completed Medical Decision Narrative: In summary patient is a 48-year-old male who presents to the emergency department for evaluation of abdominal pain and diarrhea. Patient is hemodynamically stable upon arrival, afebrile. Physical exam is remarkable for crampy abdominal discomfort on palpation with normal bowel sounds and no rebound or guarding or rigidity.. Differential diagnosis includes gastroenteritis versus diverticulitis versus infectious diarrhea versus inflammatory bowel disease like Crohn's or ulcerative colitis etc. Initial workup will be conducted with hematologic labs CT scan abdomen pelvis with contrast. Initial interventions include crystalloid bolus oral Tylenol. Initial workup reviewed by me shows a slightly elevated white count with a neutrophilic shift CRP of 111 sed rate that is normal unfortunately diarrhea panel was ordered but was unable to be collected as patient did not have a bowel movement. My informal interpretation of his CT scan abdomen pelvis shows colitis of the transverse and descending colon without free air or fluid no other acute processes. Upon repeat evaluation patient reported modest improvement after initial intervention. Given this patient is appropriate for discharge with a prescription for Augmentin and referral to gastroenterology for further workup and strict return precautions. <Robinson Key MD - Last Filed: 12/15/23 21:44> Vital Signs: 12/15/23 15:56 12/15/23 18:05 Temperature 97.9 F 98.0 F Temperature Source Oral Oral Pulse Rate 94 H Pulse Rate [Radial] 89 Respiratory Rate 18 18 Blood Pressure 143/85 H Blood Pressure [Right Arm] 160/97 H Blood Pressure Mean [Right Arm] 118 Blood Pressure Source Automatic Cuff Blood Pressure Source [Right Arm] Automatic Cuff Blood Pressure Position Sitting Blood Pressure Position [Right Arm] Sitting 02 Sat by Pulse Oximetry 97 Oxygen Delivery Method Room Air Room Air Lab Data Lab Results 12/15/23 16:15: WBC 11.7 H, RBC 5.13, Hgb 13.6 L, Hct 42.1, MCV 82.1, MCH 26.6 L, MCHC 32.4, RDW 13.8, Plt Count 468 H, MPV 6.8 L, Neut % (Auto) 75.5, Lymph % (Auto) 13.7, Callahan % (Auto) 5.6, Eos % (Auto) 4.5, Baso % (Auto) 0.7, Neut # (Auto) 8.9 H, Lymph # (Auto) 1.6, Callahan # (Auto) 0.7, Eos # (Auto) 0.5 H, Baso # (Auto) 0.1, ESR 15, Sodium 137, Potassium 3.6, Chloride 100, Carbon Dioxide 32 H, Anion Gap 8.6, BUN 9, Creatinine 0.70, Estimated Creat Clear 168, Estimated GFR 121, Est GFR ( Amer) 147, Glucose 118 H, Calcium 9.4, Magnesium 2.2, Total Bilirubin 0.4, AST 24, ALT 29, Alkaline Phosphatase 108, C-Reactive Protein 111.4 H, Total Protein 7.1, Albumin 3.6, Globulin 3.5 H, Albumin/Globulin Ratio 1.0 L, HIV 1&2 Antibody Rapid Nonreactive Orders (Tests/Meds): ED MEDICATIONS Discontinued Medications Generic Name Dose Route Start Last Admin Trade Name Freq PRN Reason Stop Dose Admin Iopamidol 75 ml 12/15/23 17:04 12/15/23 17:04 Iopamidol-370 (76%);100ml Bottle IV 12/15/23 17:05 75 ml ONCE ONE Administration Sodium Chloride 10 ml 12/15/23 17:04 12/15/23 17:04 Sodium Chloride 0.9% 10ml Syr (Rad Only) IV 12/15/23 17:05 10 ml ONCE ONE Administration ORDERS Category Date Time Status CT abdomen pelvis w con Stat Cat Scan 12/15/23 16:38 Completed CBC w/Auto Diff [Complete Blood Count Auto Diff] Stat Lab 12/15/23 16:15 Completed CMP [Comprehensive Metabolic Panel] Stat Lab 12/15/23 16:15 Completed CRP [C-Reactive Protein] Stat Lab 12/15/23 16:15 Completed ESR [Erythrocyte Sedimentation Rate] Stat Lab 12/15/23 16:15 Completed HIV (1&2) Antibody Rapid Stat Lab 12/15/23 16:15 Completed Hep C Ab with Reflex to RNA Stat Lab 12/15/23 16:15 Received Magnesium Stat Lab 12/15/23 16:15 Completed Medical Decision Narrative: In summary patient is a 48-year-old male who presents to the emergency department for evaluation of abdominal pain and diarrhea. Patient is hemodynamically stable upon arrival, afebrile. Physical exam is remarkable for crampy abdominal discomfort on palpation with normal bowel sounds and no rebound or guarding or rigidity.. Differential diagnosis includes gastroenteritis versus diverticulitis versus infectious diarrhea versus inflammatory bowel disease like Crohn's or ulcerative colitis etc. Initial workup will be conducted with hematologic labs CT scan abdomen pelvis with contrast. Initial interventions include crystalloid bolus oral Tylenol. Initial workup reviewed by me shows a slightly elevated white count with a neutrophilic shift CRP of 111 sed rate that is normal unfortunately diarrhea panel was ordered but was unable to be collected as patient did not have a bowel movement. My informal interpretation of his CT scan abdomen pelvis shows colitis of the transverse and descending colon without free air or fluid no other acute processes. Upon repeat evaluation patient reported modest improvement after initial intervention. Given this patient is appropriate for discharge with a prescription for Augmentin and referral to gastroenterology for further workup and strict return precautions. I was consulted by the ANN, and we discussed the complexity of the problems being addressed. I approved the treatment and management plan for this patient's care in the Emergency Department, thus performing a substantive portion of the medical decision making. Robinson Key MD Critical Care <TYOIN Ortez - Last Filed: 12/15/23 21:42> Critical Care Time Critical Care Time: No
--- NOTE | 2023-12-15 16:38 | CT_ITS ---
PROCEDURE INFORMATION: Exam: CT Abdomen And Pelvis With Contrast Exam date and time: 12/15/2023 5:00 PM Age: 48 years old Clinical indication: Abdominal pain; Additional info: Abdominal pain, leukocytosis TECHNIQUE: Imaging protocol: Computed tomography of the abdomen and pelvis with contrast. Radiation optimization: All CT scans at this facility use at least one of these dose optimization techniques: automated exposure control; mA and/or kV adjustment per patient size (includes targeted exams where dose is matched to clinical indication); or iterative reconstruction. Contrast material: ISOVUE; Contrast volume: 75 ml; Contrast route: IV; COMPARISON: CR XR ACUTE ABDOMEN SERIES 12/08/2023 3:25 PM FINDINGS: Lungs: The visualized lung bases demonstrate no focal infiltrates. Liver: The liver appears within normal limits. Gallbladder and biliary ducts: Normal. No calcified stones. No ductal dilation. Pancreas: The pancreas is normal. Spleen: The spleen is normal. Adrenal glands: The adrenal glands appear within normal limits. Kidneys and ureters: There are a couple of tiny 1 mm nonobstructing stones right kidney. Stomach and bowel: Bowel wall edema and surrounding pericolonic inflammatory change is noted throughout a significant portion of the transverse and descending colon. No abscess or perforation is identified. No evidence for pneumatosis. Appendix: No evidence of appendicitis. Intraperitoneal space: Unremarkable. No free air. No significant fluid collection. Vasculature: Unremarkable. No abdominal aortic aneurysm. Lymph nodes: Unremarkable. No pathologically enlarged lymph nodes are identified. Urinary bladder: The bladder appears within normal limits. No wall thickening. Reproductive: The prostate gland appears normal. Bones/joints: Unremarkable. No acute fracture. Soft tissues: Unremarkable. IMPRESSION: 1. Findings consistent with acute colitis. 2. There are a couple of tiny 1 mm nonobstructing stones right kidney.
[2023-12-15 16:48] LABS: Albumin Level 3.6 g/dl (3.5-5.0); Chloride 100 mmol/L (98-107); Potassium 3.6 mmoL/L (3.5-5.1); Sodium 137 mmol/L (136-145)
[2023-12-15 16:51] LABS: Alanine Aminotransferase 29 U/L (12-78); Alkaline Phosphatase 108 U/L (38-126); Anion Gap 8.6 mEq/L (5-15); Aspartate Amino Transferase 24 U/L (17-59); Bilirubin,Total 0.4 mg/dl (0.2-1.3); Blood Urea Nitrogen 9 mg/dl (9-20); Carbon Dioxide 32 mmol/L (22.0-30.0); Creatinine Clearance Estimated 168 mL/min (50-200); Estimated Glomerular Filt Rate 121 ml/min (>60); GFR (African American) 147 ML/MIN (>60); Globulin 3.5 g/dL (1.3-3.2); Total Protein,Serum 7.1 g/dl (6.3-8.2)
[2023-12-15 16:52] LABS: Basophils # 0.1 K/mm3 (0-0.2); Basophils % 0.7 % (0.1-2.0); Calcium 9.4 mg/dl (8.4-10.2); Eosinophils # 0.5 K/mm3 (0.0-0.4); Eosinophils % 4.5 % (0.1-12.0); Glucose 118 mg/dl (74-100); Hematocrit 42.1 % (42.0-52.0); Hemoglobin 13.6 g/dL (14.1-18.0); Lymphocytes # 1.6 K/mm3 (0.7-4.5); Lymphocytes % 13.7 % (10-50); Magnesium 2.2 mg/dl (1.6-2.3); Mean Corpuscular HGB Conc 32.4 g/dL (31.8-35.4); Mean Corpuscular Hemoglobin 26.6 pg (27.0-31.2); Mean Corpuscular Volume 82.1 fl (80-94); Mean Platelet Volume 6.8 fl (7.4-10.4); Monocytes # 0.7 K/mm3 (0.1-1.0); Monocytes % 5.6 % (1.7-9.3); Neutrophils # 8.9 K/mm3 (1.8-7.8); Neutrophils % 75.5 % (37.0-80.0); Platelet Count 468 K/mm3 (142-424); Red Blood Count 5.13 M/mm3 (4.60-6.20); Red Cell Distribution Width 13.8 % (11.5-17.5); White Blood Count 11.7 K/mm3 (4.8-10.8)
[2023-12-15 16:57] LABS: C-Reactive Protein 111.4 mg/L (0-4)
[2023-12-15] MEDS: IOPAMIDOL-370 (76%);100ML BOTTLE 75 ML IV (17:04)
[2023-12-15] MEDS: SODIUM CHLORIDE 0.9% 10ML SYR (RAD ONLY) 10 ML IV (17:04)
[2023-12-15 17:42] LABS: Erythrocyte Sedimentation Rate 15 mm/hr (0-15)
[2023-12-15 18:05] VITALS: BP 143/85; PULSE 94; RESP 18; TEMP 36.7; O2SAT 96
[2023-12-15 20:40] LABS: HIV (1&2) Antibody Rapid NONREACTIVE (NONREACTIVE)
[2023-12-17 10:14] LABS: HCV Ab Non Reactive (Non Reactive)
== END 2023-12-15 18:05 | disposition home or self-care (01) ==
PROVIDERS: Physician Assistant; Emergency Provider Emergency Medicine; PCP Family Medicine
DX: K52.9 Noninfective gastroenteritis and colitis, unspecified (principal); R10.9 Unspecified abdominal pain
CPT/HCPCS: 74177; 80053; 83735; 85025; 85651; 86140; 86803; 87389; 99285; Q9967

== ENCOUNTER 2023-12-16 07:27 | Outpatient (CLI) | payer BC, SELFPAY ==
[2023-12-16 07:42] LABS: Adenovirus F 40/41, stool Not Detected (NotDetected); Astrovirus Not Detected (NotDetected); Campylobacter Not Detected (NotDetected); Clostridium Difficile A/B, PCR Not Detected (NotDetected); Cryptosporidium Not Detected (NotDetected); Cyclospora Cayetanesis Not Detected (NotDetected); Entamoeba histolytica Not Detected (NotDetected); Enteroaggregative E coli Not Detected (NotDetected); Enteropathogenic E coli Not Detected (NotDetected); Enterotoxigenic E coli Not Detected (NotDetected); Giardia lamblia Not Detected (NotDetected); Norovirus Not Detected (NotDetected); Plesimonas Shigalloides, PCR Not Detected (NotDetected); Rotavirus A Not Detected (NotDetected); Salmonella, PCR Not Detected (NotDetected); Sapovirus Not Detected (NotDetected); Shiga-like toxin E coli Not Detected (NotDetected); Shigella Enterovasive E coli Not Detected (NotDetected); Vibrio Cholerae Not Detected (NotDetected); Vibrio, PCR Not Detected (NotDetected); Yersinia Entercolitica, PCR Not Detected (NotDetected)
[2023-12-16 15:05] LABS: Occult Blood,Stool Positive (Negative)
== END 2023-12-16 23:59 | disposition home or self-care (01) ==
PROVIDERS: PCP Family Medicine; Visit Provider Physician Assistant
DX: R19.7 Diarrhea, unspecified (principal); R10.9 Unspecified abdominal pain
CPT/HCPCS: 82272; 87507; G0328

== ENCOUNTER 2023-12-17 10:12 | Outpatient (CLI) | payer BC, SELFPAY ==
[2023-12-17 11:18] LABS: Iron 38 ug/dL (49-181)
[2023-12-17 11:24] LABS: C-Reactive Protein 137.5 mg/L (0-4)
[2023-12-17 11:28] LABS: Total Iron Binding Capacity 222 ug/dL (261-462)
[2023-12-17 11:37] LABS: Erythrocyte Sedimentation Rate 22 mm/hr (0-15)
[2023-12-17 11:54] LABS: Ferritin 266 ng/ml (17.9-464)
[2023-12-22 15:10] LABS: Saccharomyces cerevisiae, IgA <20.0 Units (0.0-24.9); Saccharomyces cerevisiae, IgG 28.3 Units (0.0-24.9)
== END 2023-12-17 23:59 | disposition home or self-care (01) ==
LOC: LAB 10:12
PROVIDERS: Visit Provider Internal Medicine Gastroenterology
DX: R19.5 Other fecal abnormalities (principal); K52.9 Noninfective gastroenteritis and colitis, unspecified; R63.4 Abnormal weight loss
CPT/HCPCS: 36415; 82728; 83540; 83550; 85651; 86140; 86256; 86671

== ENCOUNTER 2023-12-18 08:06 | Outpatient (CLI) | payer BC, SELFPAY ==
[2023-12-21 01:09] LABS: Calprotectin, Fecal 3860 ug/g (0-120)
== END 2023-12-18 23:59 | disposition home or self-care (01) ==
LOC: LAB.DROPOF 08:06
PROVIDERS: Visit Provider Internal Medicine Gastroenterology
DX: R19.5 Other fecal abnormalities (principal); K52.9 Noninfective gastroenteritis and colitis, unspecified
CPT/HCPCS: 83993

== ENCOUNTER 2024-01-08 11:31 | Day surgery (SDC) | payer BC, SELFPAY ==
[2024-01-02 13:45] VITALS: BMI 26.6
[2024-01-08] MEDS: LACTATED RINGERS 1000ML 1,000 ML 25 ML IV (12:05)
[2024-01-08 12:09] VITALS: BP 92/53; PULSE 104; RESP 18; TEMP 36.6; O2SAT 96
--- NOTE | 2024-01-08 12:27 | P.PNANES_ITS ---
[facility] Disclaimer: The information contained in this section may have been updated after the patient was seen, as this information can be updated by other users. Medical History Lymphadenopathy Dysphagia H/O pilonidal cyst Surgical History History of surgical removal of pilonidal cyst Family History Other No significant family history Social History Smoking Status: Current every day smoker alcohol intake: never substance use type: denies use current occupational status: employed Travel in the last 8 weeks: None [facility] Anesthesia Checklist Patient Identification Patient Identification: Arm Band and Verbal (Name & ) Structural Data Admitted From: Home Planned Operative Procedure/s: Colonoscopy Consent for Planned Operative Procedure(s) Verified: Yes Verified Documents: Surgical Consent and History and Physical NPO Status Verified Time NPO: 00:00 Additional verifications Anesthesia Reactions: No Airway Assessment Mallampati Score:: Class I C-Spine Mobility Assessed: Yes TMJ Mobility Assessed: Yes Dentition: Good Dentition Neurological Assessment Level of Consciousness: Awake Hx Seizures: No Numbness or tingling in extremities: No Anesthesia Plan Anesthesia Risk discussed: Yes Anesthesia Plan: Verified ASA Class: II Anesthesia Type: MAC
--- NOTE | 2024-01-08 13:44 | HMH.PROCNOTE ---
[facility] Procedure Note Date: 01/08/24 Time: 13:55 Procedure Note:: Colonoscopy Procedure Report: Colonoscopy with cold biopsies and cold snare polypectomy Endoscopist: Reggie Payan II, MD Referring physician: Rm Guzman MD Date of Procedure: January 08, 2024 Equipment: Olympus 190 variable stiffness pediatric colonoscope Sedation: MAC sedation Indication: Mr. Blum is a 48-year-old gentleman who is here for diagnostic colonoscopy. He recently went to the emergency department on 12/14 for acute colitis. His CAT scan showed findings of colitis with bowel wall thickening, edema and pericolonic inflammatory change throughout the transverse and descending colon. His PCR stool testing was negative. His hemoglobin 13.6 was mildly declined. He did have lower serum iron 38 and iron saturation of 17%. The patient reported some tenesmus. He had noted mucus with his bowel movements but no blood. He was having discomfort in the left upper abdomen with moderate gassiness and bloating. He had lost 10 pounds. The patient had additional stool testing that showed fecal calprotectin 3860 with Hemoccult positive stool. He did have an attempted colonoscopy at age 42 but the prep was poor. He reports no family history of colitis or Crohn's disease or colon cancer. His C-reactive protein was 137 (markedly elevated). He has improved with mesalamine and prednisone. Procedure: Prior to the procedure, a history and physical exam was performed, and patient's medications and allergies were reviewed. The risks, benefits and alternatives of the sedation and procedure were discussed with the patient. All questions were answered and informed consent was obtained. The patient was brought to the procedure room. Patient identification and proposed procedure were verified by the physician and the nurse. The patient was placed in a left lateral decubitus position and the scope was passed under direct vision. Throughout the procedure, the patient's blood pressure, pulse, and oxygen saturations were monitored continuously. The colonoscopy was accomplished without difficulty. The patient tolerated the procedure well. Findings: On digital rectal examination, there was normal rectal tone. There were no fissures or fistulas. There were no external hemorrhoids. The scope was then inserted through the anal canal into the rectum and advanced to the cecum. The cecal cap was full of brown liquid and solid residue. The scope was advanced into the ileum which appeared normal. The ileocecal valve appeared deformed and patulous. There was a cecal patch of inflammation around the appendiceal orifice. The scope was withdrawn. The remaining cecum and ascending colon were normal. There was marked mucosal erythema, edema in the mid distal transverse and descending colon with multiple aphthous ulcerations and aphthous erosions that were deep and penetrating. There was circumferential involvement throughout most of the transverse and descending colon with some spontaneous hemorrhage and granular edematous mucosa. Biopsies were taken from the transverse and descending colon separately. At 38 cm from the anal verge and distal to the rectum there was normal mucosal pattern with normal vascular pattern and no erythema, edema or colitis. There were 2 polyps in the sigmoid colon (4 and 5 mm) that were removed via cold snare polypectomy. Upon retroflexion within the rectum there were grade 1-2 internal hemorrhoids. Impression: 1. Severe Crohn's colitis (regional colitis involving transverse and descending colon) with penetrating aphthous ulcerations and skip areas in ascending and sigmoid to anal verge 2. 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 Diminutive colonic polyps x 2 Plan: I will follow-up the biopsies/pathology. The patient has had some improvement with prednisone and mesalamine. I am going to recommend Reid. I will discuss this with the patient and family. I will obtain IBD serologic pattern to confirm Crohn's serologies.
[2024-01-08 13:53] VITALS: O2SAT 99
[2024-01-08 14:25] VITALS: BP 81/40; PULSE 103; RESP 16; TEMP 36.7; O2SAT 96
[2024-01-08 14:35] VITALS: BP 93/55; PULSE 103; RESP 16; O2SAT 98
[2024-01-08 14:45] VITALS: BP 103/57; PULSE 97; RESP 16; O2SAT 98
[2024-01-08 14:55] VITALS: BP 113/50; PULSE 97; RESP 16; O2SAT 97
[2024-01-13 16:18] LABS: Saccharomyces cerevisiae, IgA <20.0 Units (0.0-24.9); Saccharomyces cerevisiae, IgG <20.0 Units (0.0-24.9)
== END 2024-01-08 15:31 | disposition home or self-care (01) ==
PROVIDERS: PCP Family Medicine; Visit Provider Internal Medicine Gastroenterology
PROC: (CPT 45380; principal; 2024-01-08 13:00)
DX: K51.90 Ulcerative colitis, unspecified, without complications (principal); Q43.8 Other specified congenital malformations of intestine; K63.5 Polyp of colon
CPT/HCPCS: 45380; 45385; 86256; 86671; J7120

== ENCOUNTER 2024-01-23 10:15 | Outpatient (CLI) | payer BC, SELFPAY ==
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
--- OUTSIDE RECORDS SUMMARY | 2024-01-23 10:17 | XMS_ITS | Encounter Summary ---
Author Organization [facility] Address [address] [id number] Care Team Providers Care Quality Nurse Name Role Phone Pcp, No Primary Care Provider Unavailabl e Reason for Visit * Reason Comments Med Refill Encounter Details Date Type Department Care Team (Late st Contact Info) Description 12/15/2023 Refill [facility] [address] [place] [address] Carole Hunt M, S IRON WORKER [address] [facility] [address] [place] [address] Social History Tobacco Use Types Packs/Day Years [...] money to buy more. Never true 05/14/19 Within the past 12 months, t he [...] place to sleep or slept in a long-term (including now)? No 05/14/2023 Utilities Answer Date Recorded In the past 12 months has th e electric, gas, oil, or water company threatened to shut off services in your home? No 05/14/2023 Sex and Gender Information Value Date Recorded Sex Assigned at Not on file Legal Sex Male 5:58 PM EDT Gender Identity Not on file Sexual Orientation Not on file documented as of this encounter Plan of Treatment Not on file documented as of this encounter Visit Diagnoses Not on filedocumented in this encounter Additional Health Concerns Assessment Noted Time A fall risk assessment has been complete d for the patient 09/24/2023 9:26 AM EDT A Body Mass Index follow-up plan has been documented for the patient 09/24/2023 10:03 AM EDT documented as of this encounter Care Teams Quality Nurse Relationship Specialty Start Date End Date Pcp, [place] [address] PCP - General Family Medicine 05/13/23 documented as of this encounter
--- OUTSIDE RECORDS SUMMARY | 2024-01-23 10:17 | XMS_ITS | Encounter Summary ---
Author Organization [facility] Address [address] [place] [address] Care Team Providers Care Gta Name Role Phone Pcp, No Primary Care Provider Unavailabl e Reason for Visit * Reason Onset Date Comments HCN Paperwork/Documentation Request 10/10/2023 Encounter Details Date Type Department Care Team (Late st Contact Info) Description 10/10/2023 Telephone [facility] [address] [place] [address] Vasyl Montes MD [address] [place] [address] HCN Paperwork/Documentatio n Request Social History Tobacco Use Types Packs/Day Years [...] place to sleep or slept in a half-way (including now)? No 05/14/2023 Utilities Answer Date [...] on file documented as of this encounter Miscellaneous Notes * Telephone Encounter - Luisa Benson - 10/10/2023 2:11 PM EDT Faxed. * Telephone Encounter - Thien Alvarez - 10/10/2023 11:53 AM EDT Paperwork/Documentation Request Patient Name: Tre Blum Type: 09/23 visit notes Due Date: unknown date Send To: Maya Cooper - Best contact number: Other: [phone] Optimal time of day to reach caller: ANYTIME Additional comments/information from caller: None Note: Please do not reply to this message. Follow-up communication and further actions as a result of this message need to be communicated with the patient directly, if the patient is not active onMyChart. If the patient is active on MyChart, they will receive notification of the communication/outcome via [employer]. documented in this encounter Plan of Treatment Not on [...] documented as of this encounter Care Teams Gta Relationship Specialty Start Date End Date Pcp, [place] [address] PCP - General Family Medicine 05/13/23 documented as of this encounter
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
--- OUTSIDE RECORDS SUMMARY | 2024-01-23 10:17 | XMS_ITS ---
Author Organization [facility] Address [address] [facility] [address] [facility] [address] [place] [phone] Care Team Providers Care Aerial Tram Operator Name Role Phone Pati Guzman Primary Care Provider [phone] Lindsey Castro Unavailable [phone] REASON FOR VISIT speak to Tami Encounters Encounter Location Date Provider Diagnosis [facility] [address] [place] [phone] 12/19/2023 Lindsey Castro PLAN OF TREATMENT No Information
--- OUTSIDE RECORDS SUMMARY | 2024-01-23 10:17 | XMS_ITS ---
[facility] [address] [facility] [address] [place] [phone] Care Team Providers Care Cracker Dough Mixer Name Role Phone Pati Guzman Primary Care Provider [phone] Dev Silvestre Unavailable [phone] ALLERGIES Allergen (clinical drug ingredient) Drug/Non Drug [...] - 38 plat 206 100 - 400 REASON FOR VISIT congestion MEDICATIONS Medication SIG (Take, Route, Frequency, Duration) Notes Start Date End Date Status Promethazine-DM 6.25-15 MG/5ML 5 ml as needed Orally every 6 hrs 01/09/2024 Active Benzonatate 200 MG 1 capsule as needed Orally Three times a day 01/09/2024 Active Zithromax Z-West 250 MG as directed Orall y once daily for 5 day(s) 01/09/2024 Active predniSONE 10 MG 4 tab [...] 10/22/1994 When did you stop smoking? 05/10/2017 VITAL SIGNS Weight 197 lbs 01/09/2024 Blood pressure systolic 122 mm Hg 01/09/20 24 Blood pressure diastolic 76 mm Hg 024 Heart Rate 105 /min 01/09/2024 Height 72.50 in 01/09/2024 BMI 26.35 kg/m2 01/09/2024 Encounters Encounter Location Date Provider Diagnosis [facility] [address] [facility] [address] [place], [place] [phone] 01/09/2024 Dev Silvestre Acute bronchitis, unspecified organism J20.9 ASSESSMENTS Encounter Date Diagnosis Assessment Notes Treatment Notes Treatment Clinical Notes 01/09/2024 Acute bronchitis, unspecified organism (ICD-10 - J20.9) PLAN OF TREATMENT Medication Medication Name Sig Start Date Stop Date Notes Promethazine-DM 6.25-15 MG/5ML 5 ml as n eeded Orally every 6 hrs 01/09/2024 Benzonatate 200 MG 1 capsule as needed Orally Three times a day 01/09/2024 Zithromax Z-West 250 MG as directed Orall y once daily for 5 day(s) 01/09/2024 Next Appt Details Follow Up: prn, Reason: Progress Notes * Examination Category Sub-Category Detail Notes ENT/Respiratory Oral cavity : erythema without exudate on pharynx Neck : no cervical lymphade nopathy Heart : RRR, normal S1 S2 Lungs: clear to auscultatio n bilaterally General Appearance: NAD Eyes: PERRLA, sclera clear History and Physical Notes * HPI (History of Present Illness) Category Sub-Category Detail Notes ENT/respiratory chest congestion Pt complains of chest congestion for about 3 days. States he tries to cough it in the morning and at night. Pt states he coughs so hard that he gags . Pt states he is coughing up thick, green mucous . Pt states he feels worse in the morning and at night
--- OUTSIDE RECORDS SUMMARY | 2024-01-23 10:17 | XMS_ITS ---
[facility] [address] [facility] [address] [facility] [address] [place] [phone] Care Team Providers Care Beer Runner Name Role Phone Pati Guzman Primary Care Provider Lindsey Castro [phone] Encounters Encounter Location Date Provider Diagnosis [facility] [address] [place] [phone] 12/16/2023 Lindsey Castro PLAN OF TREATMENT No Information
--- OUTSIDE RECORDS SUMMARY | 2024-01-23 10:18 | XMS_ITS | Encounter Summary ---
Author Organization [facility] Address [address] [place] [address] Care Team Providers Care Microwave Oven Assembler Name Role Phone Pcp, No Primary Care Provider Unavailabl e Encounter Details Date Type Department Care Team (Latest Contact Info) Description 08/13/2023 Travel Social History Tobacco Use Types Packs/Day Years [...] place to sleep or slept in a assisted (including now)? No 05/14/2023 Utilities Answer Date [...] has been complete d for the patient 08/13/2023 7:53 AM EDT A Body Mass Index follow-up plan has been documented for the patient 08/13/2023 8:43 AM EDT documented as of this encounter Care Teams Microwave Oven Assembler Relationship Specialty Start Date End Date Pcp, No [address] [place] [address] PCP - General Family Medicine 05/13/23 documented as of this encounter
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
--- OUTSIDE RECORDS SUMMARY | 2024-01-23 10:18 | XMS_ITS | Encounter Summary ---
Author Organization [facility] Address [address] [place] [address] Care Team Providers Care Maintenance Services Dispatcher Name Role Phone Pcp, No Primary Care Provider Unavailabl e Encounter Details Date Type Department Care Team (Latest Contact Info) Description 07/16/2023 Travel Social History Tobacco Use Types Packs/Day [...] has been complete d for the patient 07/16/2023 10:06 AM EDT A Body Mass Index follow-up plan has been documented for the patient 07/16/2023 11:07 AM EDT documented as of this encounter Care Teams Maintenance Services Dispatcher Relationship Specialty Start Date End Date Pcp, No [address] [place] [address] PCP - General Family Medicine 05/13/23 documented as of this encounter
--- OUTSIDE RECORDS SUMMARY | 2024-01-23 10:18 | XMS_ITS | Encounter Summary ---
Author Organization Healthcare Address [address] [place] [address] Care Team Providers Care Blueprint Reproducer Name Role Phone Pcp, No Primary Care Provider Unavailabl e Reason for Visit * Reason Comments Follow-up Encounter Details Date Type Department Care Team (Late st Contact Info) Description 09/24/2023 9:20 AM EDT Office Visit [facility] Orthopaedic Surgery & Sports Medicine [address], [address] [place] [address] Vasyl Montes MD [address] [place] [address] Hip pain, right (Primary Dx) Social History Tobacco Use Types Packs/Day Years [...] ??F) 09/24/2023 9:26 AM EDT Respiratory Rate - - Oxygen Saturation 97% 09/24/2023 9:26 AM EDT Inhaled Oxygen Concentration - - Weight 95.3 kg (210 lb) 09/24/2023 9:26 AM EDT Height 180.3 cm (5' 11 ) 09/24/2023 9:26 AM EDT Body Mass Index 29.29 09/24/2023 9:26 AM EDT documented in this encounter Miscellaneous Notes * Progress Notes - Vasyl Montes MD - 09/24/2023 9:20 AM EDT 09/24/2023 ORTHOPEDIC TRAUMA CLINIC NOTE Injury/Tx: HPI: Tre Blum 48 y.o. male who returns for follow-up of his right hip and groin soft tissue injuries. He is finish out his physical therapy. He reports that he was given some different stretching exercises in PT which have helped tremendously. 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 PAST MEDICAL HISTORY: History reviewed. No pertinent past medical history. Past Surgical History: History reviewed. No pertinent surgical history. Review of Systems: General: no fatigue, no weakness, no fevers, no chills, no night sweats Skin:no rashes, no sores, no lumps Head: no recent trauma Eyes:no blurring, no tearing, no itching Nose: no sneezing, no itching, no epistaxis Mouth: no hoarseness, no sore throat, no neck swelling Cardiac: no HTN, no palpitations, no dyspnea on exertion, no PND Respiratory: no shortness of air, no coughing, no wheezing, no sputum production GI: no loss of appetite, no nausea,no vomiting, no constipation, no diarrhea, no blood per rectum, no abdominal pain, no jaundice Urinary: no dysuria, no hematuria, no polyuria, no incontinence Vascular: no leg edema, no claudication Neurologic: no loss of sensation, no tingling, no numbness, no fainting, no blackouts, no seizures Family History: History reviewed. No pertinent family history. Medications: Current Outpatient Medications: acetaminophen (Tylenol) 500 MG tablet, Take 2 tablets (1,000 mg) by mouth every 6 (six) hours if needed for pain for up to 50 doses. (Patient not taking: Reported on 08/13/2023), Disp: 100 tablet, Rfl:0 ibuprofen 400 MG tablet, Take 1 tablet (400 mg) by mouth every 6 (six) hours if needed for moderatepain for up to 50 doses. (Patient not taking: Reported on 07/16/2023), Disp: 50 tablet, Rfl: 0 methocarbamol (Robaxin) 750 MG tablet, Take 1 tablet (750 mg) by mouth every 6 (six) hours if needed for muscle spasms for up to 50 doses. (Patient not taking: Reported on 07/16/2023), Disp: 50 tablet,Rfl: 0 traMADol (Ultram) 50 MG tablet, Take 1 tablet (50 mg) by mouth every 8 (eight) hours if needed for moderate pain for up to 10 doses. (Patient not taking: Reported on 06/11/2023), Disp: 10 tablet, Rfl: 0 Allergies: Allergies Allergen Reactions Penicillins Unknown - Patient states they do not know rxn details Childhood allergy Social History Social History Occupational History Not on file Tobacco Use Smoking status: Former Current packs/day: 0.50 Average packs/day: 0.5 packs/day for 15.0 years (7.5 ttl pk-yrs) Types: Cigarettes Smokeless tobacco: Never Vaping Use Vaping status: Not on file Substance and Sexual Activity Alcohol use: Never Drug use: Never Sexual activity: Yes Partners: Female control/protection: None Vital signs: Visit Vitals BP 135/89 Pulse 75 Temp 36.7 ??C (98 ??F) Ht 1.803 m (5' 11 ) Wt 95.3 kg (210 lb) SpO2 97% BMI 29.29 kg/m?? Smoking Status Former BSA 2.18 m?? Constitutional: Well developed. Well nourished. Psychologic: Mood is appropriate. Appropriate affect. Head and Face: Normocephalic. No obvious deformities. Eyes: Extraocular movements intact Pulmonary: Unlabored, normal effort. Cardiac: well perfused, extremities pink. Skin: No rashes on exposed skin surface. Neuro: No focal neuro deficit, normal coordination, normal muscle tone MUSCULOSKELETAL EXAM: When I asked him to walk he walks with no discernible limp. He was able to squat to the floor and arise with no pain or difficulty. On examination of the right hip and extremityhe had no pain with active or passive range of motion of the hip and he had full active flexion extension internal and external rotation of the hip without pain. Hip flexion extension internal rotation external rotation were all 5/5 without pain. There was no swelling in the right lower extremity. Sensation was intact to light touch throughout the right lower extremity. IMAGING: I have personally reviewed, and interpreted the patients imaging: Repeat x-rays of the right hip today showed a normal-appearing hip joint with no signs of any type of posttraumatic changes. ASSESSMENT: Right hip and groin soft tissue injuries now resolved PLAN: I am going to release him back to work. I wrote him a note to return to his regular duty without restrictions this coming Friday. Vasyl Montes MD documented in this encounter Plan of Treatment Not on file documented as of this encounter Results * XR Hip Right 2 or 3 Views (09/24/2023 9:38 AM EDT) Anatomical Region Laterality Modality Lower Extremities, Hip Right Digital R adiography Impressions 09/24/2023 10:07 AM EDT No acute bony findings. CRITICAL RESULT: ?? No. COMMUNICATION: Per this written report. Drafted by David David MD on 09/24/2023 10:06 AM Final report signed by David David MD on 09/24/2023 10:07 AM Narrative 09/24/2023 10:07 AM EDT CLINICAL INDICATION: pain TECHNIQUE: XR HIP RIGHT 2 OR 3 VIEWS COMPARISON: August 13, 2023 FINDINGS: Osseous mineralization is within normal limits. The hip joint space is similar to prior. No acute fracture or dislocation. Pubic symphysis is unremarkable. Procedure Note David David MD - 09/24/2023 CLINICAL INDICATION: pain TECHNIQUE: XR HIP RIGHT 2 OR 3 VIEWS COMPARISON: August 13, 2023 FINDINGS: Osseous mineralization is within normal limits. The hip joint space issimilar to prior. No acute fracture or dislocation. Pubic symphysis isunremarkable. IMPRESSION: No acute bony findings. CRITICAL RESULT: No. COMMUNICATION: Per this written report. Drafted by David David MD on 09/24/2023 10:06 AM Final report signed by David David MD on 09/24/2023 10:07 AM Vasyl Montes MD IMG XR PROCEDURES Final Result documented in this encounter Visit Diagnoses Diagnosis Hip pain, right- Primary Pain in joint, pelvic region and thigh Hip pain, right Pain in joint, pelvic region and thigh documented in this encounter Additional Health Concerns Assessment Noted Time A fall risk assessment has been complete d for the patient 09/24/2023 9:26 AM EDT A Body Mass Index follow-up plan has been documented for the patient 09/24/2023 10:03 AM EDT documented as of this encounter Care Teams Blueprint Reproducer Relationship Specialty Start Date End Date Pcp, [place] [address] PCP - General Family Medicine 05/13/23 documented as of this encounter
--- OUTSIDE RECORDS SUMMARY | 2024-01-23 10:18 | XMS_ITS | Encounter Summary ---
Author Organization [facility] Address [address] [place] [address] Care Team Providers Care Passenger Service Supervisor Name Role Phone Pcp, No Primary Care Provider Unavailabl e Encounter Details Date Type Department Care Team (Latest Contact Info) Description 05/21/2023 Travel Social History Tobacco Use Types Packs/Day Years Used Date Smoking Tobacco: Never Smokeless Tobacco: Never Humiliation, Afraid, Rape, and Kick questionnair e [...] place to sleep or slept in a penitentiary (including now)? No 05/14/2023 Utilities Answer Date [...] has been complete d for the patient 05/21/2023 9:48 AM EDT A Body Mass Index follow-up plan has been documented for the patient 05/21/2023 11:08 AM EDT documented as of this encounter Care Teams Passenger Service Supervisor Relationship Specialty Start Date End Date Pcp, No [address] [place] [address] PCP - General Family Medicine 05/13/23 documented as of this encounter
--- OUTSIDE RECORDS SUMMARY | 2024-01-23 10:18 | XMS_ITS | Encounter Summary ---
Author Organization [facility] Address [address] [place] [address] Care Team Providers Care Workers' Compensation Claims Examiner Name Role Phone Pcp, No Primary Care Provider Unavailabl e Encounter Details Date Type Department Care Team (Late st Contact Info) Description 09/24/2023 Abstract [facility] Orthopaedic Surgery & Sports Medicine [address], [address] [place] [address] Vasyl Montes MD [address] [place] [address] Social History Tobacco Use Types Packs/Day Years [...] documented as of this encounter Care Teams Workers' Compensation Claims Examiner Relationship Specialty Start Date End Date Pcp, No [address] [place] [address] PCP - General Family Medicine 05/13/23 documented as of this encounter
--- OUTSIDE RECORDS SUMMARY | 2024-01-23 10:18 | XMS_ITS | Encounter Summary ---
Author Organization Healthcare Address [address] [place] [address] Care Team Providers Care Insurance Collector Name Role Phone Pcp, No Primary Care Provider Unavailabl e Encounter Details Date Type Department Care Team (Late st Contact Info) Description 08/13/2023 8:50 AM EDT Office Visit [facility] Orthopaedic Surgery & Sports Medicine [address], [address] [place] [address] Vasyl Montes MD [address] [place] [address] Hip pain, right (Primary Dx) [...] place to sleep or slept in a detention (including now)? No 05/14/2023 Utilities Answer Date [...] as of this encounter Miscellaneous Notes * Progress Notes - Vasyl Montes MD - 08/13/2023 8:50 AM EDT Today, I met with Maya Redd RN BSN CCM, assistant case manager. I discussed my findings and recommendations. Told her that he seems to be making progress although somewhat slower than average. He does report he is walking more. He still reports some pain after he walks. A repeat x-rays today showed the hip joint to appeared normal with no evidence of any posttraumatic changes. I told her I think we just need to give him more time. I want him to continue his physical therapy and also encouraged him to walk more and more. I will see him back in 6 months. Again I would not anticipate any permanent restrictions limitations at the time he reaches MMI. I answered all his/her questions. documented in this encounter Plan of Treatment Not on file documented as of this encounter Visit Diagnoses Diagnosis Hip pain, [...] documented as of this encounter Care Teams Insurance Collector Relationship Specialty Start Date End Date P[place], [place] [address] PCP - General Family Medicine 05/13/23 documented as of this encounter
--- OUTSIDE RECORDS SUMMARY | 2024-01-23 10:18 | XMS_ITS | Encounter Summary ---
Author Organization Healthcare Address [address] [place] [address] Care Team Providers Care Vp Director Of Creative Strategy Name Role Phone Pcp, No Primary Care Provider Unavailabl e Encounter Details Date Type Department Care Team (Late st Contact Info) Description 07/16/2023 10:10 AM EDT Office Visit [facility] Orthopaedic Surgery & Sports Medicine [address], [address] [place] [address] Vasyl Montes MD [address] [place] [address] Hip pain, right (Primary Dx) [...] place to sleep or slept in a retirement (including now)? No 05/14/2023 Utilities Answer Date [...] Progress Notes - Vasyl Montes MD - 07/16/2023 10:10 AM EDT Today, I met with Peggy Holcomb, MSN, SENIOR HEALTH EDUCATOR, OPHTHALMIC NURSE-C case packer and sealer. I discussed my findings and recommendations. I told her that this point I do not think he is quite at MMI since he is behind on his physical therapy. I want him to continue his PT for the next 4 weeks. This will involve modalities as well as gait training hip girdle and core strengthening. Since no light duty is available for him I will keep him off until I see him again in 4 weeks. However however I did tell her that I felt he would be at MMI at that time. I would anticipate being able to release him back to his regular work with no restrictions at that time. I do not anticipate any further treatment after that point. I answered all his/her questions. documented in [...] documented as of this encounter Care Teams Vp Director Of Creative Strategy Relationship Specialty Start Date End Date Pcp, [place] [address] PCP - General Family Medicine 05/13/23 documented as of this encounter
--- OUTSIDE RECORDS SUMMARY | 2024-01-23 10:18 | XMS_ITS | Encounter Summary ---
Author Organization Healthcare Address [address] [place] [address] Care Team Providers Care Goring Cutter Name Role Phone Pcp, No Primary Care Provider Unavailabl e Encounter Details Date Type Department Care Team (Latest Contact Info) Description 06/11/2023 2:51 PM EDT - 06/11/2023 11:59 PM EDT [facility] [address], [address] [place] [address] Hip pain, right Discharge Disposition: Home or Self Care Social History Tobacco Use Types Packs/Day Years [...] the past 12 months has th e [employer], gas, oil, or water company threatened to shut off services in your home? No 05/14/2023 Sex and Gender Information Value Date Recorded Sex Assigned at Not on file Legal Sex Male 5:58 PM EDT Gender Identity Not on file Sexual Orientation Not on file documented as of this encounter Medications at Time of Discharge acetaminophen (Tylenol) 500 MG tablet Take 2 tablets (1,000 mg) by mouth every 6 (six) hours if needed for pain for up to 50 doses. 100 tablet 05/15/2023 ibuprofen 400 MG tablet Take 1 tablet (400 mg) by mouth every 6 (six) hours if needed for moderate pain for up to 50 doses. 50 tablet 05/15/2023 methocarbamol (Robaxin) 750 MG tablet Take 1 tablet (750 mg) by mouth every 6 (six) hours if needed for muscle spasms for up to 50 doses. 50 tablet 05/15/2023 traMADol (Ultram) 50 MG tablet Take 1 tablet (50 mg) by mouth every 8 (eight) hours if needed for moderate pain for up to 10 doses. 10 tablet 05/15/2023 documented as of this encounter Plan of Treatment Not on file documented as of this encounter Procedures Procedure Name Priority Date/Time Associated Diagnosis Comments XR HIP RIGHT 2 OR 3 VIEWS Routine 06/11/2023 3:05 PM EDT Hip pain, right documented in this encounter Results * XR Hip Right [...] this encounter Visit Diagnoses Diagnosis Hip pain, right Pain in joint, pelvic region and thigh documented in this encounter Additional Health Concerns Assessment Noted Time A Body Mass Index follow-up plan has been documented for the patient 06/11/2023 3:31 PM EDT documented as of this encounter Care Teams Goring Cutter Relationship Specialty Start Date End Date Pcp, Lala [address] [place] [address] PCP - General Family Medicine 05/13/23 documented as of this encounter
--- OUTSIDE RECORDS SUMMARY | 2024-01-23 10:18 | XMS_ITS | Encounter Summary ---
Author Organization Healthcare Address [address] [place] [address] Care Team Providers Care Ornament Maker Hand Name Role Phone Pcp, No Primary Care Provider Unavailabl e Encounter Details Date Type Department Care Team (Latest Contact Info) Description 09/24/2023 9:29 AM EDT - 09/24/2023 11:59 PM EDT Hospital Encounter [facility] [address], [address] [place] [address] Hip pain, right Discharge Disposition: [...] the past 12 months has th e [employer], gas, oil, or water company threatened to [...] HIP RIGHT 2 OR 3 VIEWS Routine 09/24/2023 9:38 AM EDT Hip pain, right documented in this [...] documented as of this encounter Care Teams Ornament Maker Hand Relationship Specialty Start Date End Date Pcp, No [address] [place] [address] PCP - General Family Medicine 05/13/23 documented as of this encounter
--- OUTSIDE RECORDS SUMMARY | 2024-01-23 10:18 | XMS_ITS | Encounter Summary ---
Author Organization [facility] Address [address] [place] [address] Care Team Providers Care Supervisor Of Guidance And Testing Name Role Phone Pcp, No Primary Care Provider Unavailabl e Reason for Referral * Consultation (Routine) - Pending Review Specialty Diagnoses / Procedures Referred By Contac t Referred To Contact Physical Therapy Diagnoses Pelvic straddle injury, initial encounter Hip strain, right, sequela Vasyl Montes MD [address] [place] [address] Phone: tel: fax: Referral ID Status Reason Start Date Expiration Date Visits Requested Visits Authorized [id number] Pending Review Consult and Treat 07/21/2023 01/19/2025 1 1 Reason for Visit * Reason Onset Date Comments HCN - Patient Message 07/18/2023 Encounter Details Date Type Department Care Team (Late st Contact Info) Description 07/18/2023 Telephone [facility] Orthopaedic Surgery & Sports Medicine [address], [address] [place] [address] Vasyl Montes MD [address] [place] [address] HCN - Patient Message Social History Tobacco Use Types Packs/Day Years [...] encounter Miscellaneous Notes * Telephone Encounter - Estefany Benson Y - 07/21/2023 1:04 PM EDT Updated therapy order entered into [employer] and faxed as requested. -Vanessa * Telephone Encounter - Radha Reis - 07/18/2023 9:33 AM EDT Paperwork/Documentation Request Patient Name: Tre Blum Type: New/updated PT orders Due Date: unknown date Send To: [address] Physical Therapy at [phone] Best contact number: Other: [phone] Optimal time of day to reach caller: OTHER: M-F, 8a-5p Additional comments/information from caller: None Note: Please do not reply to this message. Follow-up communication and further actions as a result of this message need to be communicated with the patient directly, if the patient is not active onMyChart. If the patient is active on MyChart, they will receive notification of the communication/outcome via [employer]. documented in this encounter Plan of Treatment Scheduled Referrals Name Type Priority Associated Diagnoses Order Schedule Physical Therapy (outgoing) Outpatient Referral Routine Pelvic straddle injury, initial encounter Hip strain, right, sequela 1 Occurrences starting 07/21/2023 until 01/20/2025 documented as of this encounter Visit Diagnoses Diagnosis Pelvic straddle injury, initial encounter- Primary Hip strain, right, sequela documented in this encounter Additional Health Concerns Assessment Noted Time A fall risk assessment has been complete d for the patient 07/16/2023 10:06 AM EDT A Body Mass Index follow-up plan has been documented for the patient 07/16/2023 11:07 AM EDT documented as of this encounter Care Teams Supervisor Of Guidance And Testing Relationship Specialty Start Date End Date Pcp, [place] [address] PCP - General Family Medicine 05/13/23 documented as of this encounter
--- OUTSIDE RECORDS SUMMARY | 2024-01-23 10:18 | XMS_ITS | Encounter Summary ---
Author Organization Healthcare Address [address] [place] [address] Care Team Providers Care Juke Box Servicer Name Role Phone Pcp, No Primary Care Provider Unavailabl e Encounter Details Date Type Department Care Team (Latest Contact Info) Description 08/13/2023 7:59 AM EDT - 08/13/2023 11:59 PM EDT Hospital Encounter [facility] [address], [address] [place] [address] Hip pain, right Discharge Disposition: [...] the past 12 months has th e [employer], gas, oil, or water company threatened to [...] HIP RIGHT 2 OR 3 VIEWS Routine 08/13/2023 8:08 AM EDT Hip pain, right documented in [...] documented as of this encounter Care Teams Juke Box Servicer Relationship Specialty Start Date End Date Pcp, [place] [address] PCP - General Family Medicine 05/13/23 documented as of this encounter
--- OUTSIDE RECORDS SUMMARY | 2024-01-23 10:18 | XMS_ITS | Encounter Summary ---
Author Organization Healthcare Address [address] [place] [address] Care Team Providers Care Hangersmith Name Role Phone Pcp, No Primary Care Provider Unavailabl e Encounter Details Date Type Department Care Team (Late st Contact Info) Description 05/19/2023 Telephone [facility] Orthopaedic Surgery & Sports Medicine [address], [address] [place] [address] Zahraa Chew RN TRAUMA & ACUTE CARE SURG [facility] ADMIN Social History Tobacco Use Types Packs/Day Years Used Date Smoking Tobacco: Never Assessed Humiliation, Afraid, Rape, and Kick questionnair e [...] by your partner or ex-partner? No 05/14/2023 Hunger Vital Sign Answer Date Recorded Within [...] place to sleep or slept in a senior care (including now)? No 05/14/2023 Utilities Answer Date [...] encounter Miscellaneous Notes * Telephone Encounter - Zahraa Chew RN - 05/19/2023 1:44 PM EDT General call back performed. Patient states he is still having some pain but it is improving. He isstill having some shooting pain with certain movements. Instructed patient to continue to take anti-inflammatories and talk to surgeon at appointment on 05/20 if still having the shooting pain. Patient has all clinic numbers and f/u appointment info. documented in this encounter Plan of Treatment Not on file documented as of this encounter Visit Diagnoses Not on filedocumented in this encounter Additional Health Concerns Assessment Noted Time A Body Mass Index follow-up plan has been documented for the patient 05/15/2023 11:15 AM EST documented as of this encounter Care Teams Hangersmith Relationship Specialty Start Date End Date Pcp, No [address] [place] [address] PCP - General Family Medicine 05/13/23 documented as of this encounter
--- OUTSIDE RECORDS SUMMARY | 2024-01-23 10:18 | XMS_ITS | Encounter Summary ---
Author Organization [facility] Address [address] [place] [address] Care Team Providers Care Poultry And Fish Butcher Name Role Phone Pcp, No Primary Care Provider Unavailabl e Encounter Details Date Type Department Care Team (Late st Contact Info) Description 07/22/2023 Abstract [facility] Orthopaedic Surgery & Sports Medicine [address], [address] [place] [address] Vasyl Montes MD [address] [place] [address] Social History Tobacco Use Types [...] documented as of this encounter Care Teams Poultry And Fish Butcher Relationship Specialty Start Date End Date Pcp, No [address] [place] [address] PCP - General Family Medicine 05/13/23 documented as of this encounter
--- OUTSIDE RECORDS SUMMARY | 2024-01-23 10:18 | XMS_ITS | Encounter Summary ---
Author Organization Healthcare Address [address] [place] [address] Care Team Providers Care Mosaic Tiler Name Role Phone Pcp, No Primary Care Provider Unavailabl e Encounter Details Date Type Department Care Team (Late st Contact Info) Description 06/11/2023 3:20 PM EDT Office Visit [facility]opa[facility] Surgery [facility] Sports Medicine [address] [place] [address] Vasyl Montes MD [address] [place] [address] Hip pain, right (Primary Dx) [...] place to sleep or slept in a mcc (including now)? No 05/14/2023 Utilities Answer Date [...] Progress Notes - Vasyl Montes MD - 06/11/2023 3:20 PM EDT Today, I met with his mattress spring encaser. I discussed my findings and recommendations. His repeat hip x-rays today appeared normal. At this point I think he needs to begin a work hardening program which I have referred him for today. We will see him back in 4 weeks. At that time anticipate release him back to his regular work without any permanent restrictions.. I answered all her questions. documented in this encounter Plan of Treatment Not on file documented as of this encounter Visit Diagnoses Diagnosis Hip pain, right- Primary Pain in joint, pelvic region and thigh documented in this encounter Additional Health Concerns Assessment Noted Time A Body Mass Index follow-up plan has been documented for the patient 06/11/2023 3:31 PM EDT documented as of this encounter Care Teams Mosaic Tiler Relationship Specialty Start Date End Date Pcp, [place] [address] PCP - General Family Medicine 05/13/23 documented as of this encounter
--- OUTSIDE RECORDS SUMMARY | 2024-01-23 10:18 | XMS_ITS | Encounter Summary ---
Author Organization [facility] Address [address] [place] [address] Care Team Providers Care Janitorial Services Supervisor Name Role Phone Pcp, No Primary Care Provider Unavailabl e Encounter Details Date Type Department Care Team (Late st Contact Info) Description 08/28/[address] [facility] Orthopaedic Surgery & Sports Medicine [address] [place] [address] Vasyl Montes MD [address] [place] [address] Social History Tobacco Use Types [...] documented as of this encounter Care Teams Janitorial Services Supervisor Relationship Specialty Start Date End Date Pcp, No [address] [place] [address] PCP - General Family Medicine 05/13/23 documented as of this encounter
--- OUTSIDE RECORDS SUMMARY | 2024-01-23 10:18 | XMS_ITS | Encounter Summary ---
Author Organization Healthcare Address [address] [place] [address] Care Team Providers Care Rn Plastic Surgery Name Role Phone Pcp, No Primary Care Provider Unavailabl e Encounter Details Date Type Department Care Team (Latest Contact Info) Description 05/21/2023 9:53 AM EDT - 05/21/2023 11:59 PM EDT Hospital Encounter [facility] [address] [place] [address] Hip pain, right Discharge Disposition: [...] place to sleep or slept in a care home (including now)? No 05/14/2023 Utilities Answer Date [...] up to 10 doses. 10 tablet 05/15/2023 senna-docusate sodium (Senokot-S) 8.6-50 MG tablet Take 1 tablet by mouth 2 (two) times a day for 14 days. 28 tablet 05/15/2023 05/29/2023 documented as of this encounter Plan of Treatment Not on file documented as of this encounter Procedures Procedure Name Priority Date/Time Associated Diagnosis Comments XR HIP RIGHT 2 OR 3 VIEWS Routine 05/21/2023 10:19 AM EDT Hip pain, right documented in this encounter Results * XR Hip Right 2 or 3 Views (05/21/2023 10:19 AM EDT) Anatomical Region Laterality Modality Lower Extremities, Hip Right Digital R adiography Impressions 05/21/2023 11:46 AM EDT Normal evaluation of the right hip. CRITICAL RESULT: ?? No. COMMUNICATION: Per this written report. Drafted by Harsh Palomares MD on 05/21/2023 11:45 AM Final report signed by Harsh Palomares MD on 05/21/2023 11:46 AM Narrative 05/21/2023 11:46 AM EDT CLINICAL INDICATION: pain TECHNIQUE: XR HIP RIGHT 2 OR 3 VIEWS COMPARISON: MRI dated May 14, 2023. FINDINGS: 2 views of the right hip show normal joint space and alignment. No fracture or osteonecrosis. Right sacroiliac joint and pubic symphysis are normal. Procedure Note Harsh Palomares MD - 05/21/2023 CLINICAL INDICATION: pain TECHNIQUE: XR HIP RIGHT 2 OR 3 VIEWS COMPARISON: MRI dated May 14, 2023. FINDINGS: 2 views of the right hip show normal joint space and alignment. Nofracture or osteonecrosis. Right sacroiliac joint and pubic symphysis arenormal. IMPRESSION: Normal evaluation of the right hip. CRITICAL RESULT: No. COMMUNICATION: Per this written report. Drafted by Harsh Palomares MD on 05/21/2023 11:45 AM Final report signed by Harsh Palomares MD on 05/21/2023 11:46 AM Vasyl Montes MD IMG XR PROCEDURES [...] documented as of this encounter Care Teams Rn Plastic Surgery Relationship Specialty Start Date End Date Pcp, [place] [address] PCP - General Family Medicine 05/13/23 documented as of this encounter
--- OUTSIDE RECORDS SUMMARY | 2024-01-23 10:18 | XMS_ITS | Encounter Summary ---
Author Organization [facility] Address [address] [place] [address] Care Team Providers Care Boring Mill Set Up Operator Name Role Phone Pcp, No Primary Care Provider Unavailabl e Encounter Details Date Type Department Care Team (Latest Contact Info) Description 08/06/2023 Travel Social History Tobacco Use Types Packs/Day [...] documented as of this encounter Care Teams Boring Mill Set Up Operator Relationship Specialty Start Date End Date Pcp, No [address] [place] [address] PCP - General Family Medicine 05/13/23 documented as of this encounter
--- OUTSIDE RECORDS SUMMARY | 2024-01-23 10:18 | XMS_ITS | Encounter Summary ---
Author Organization [facility] Address [address] [place] [address] Care Team Providers Care Spinning Bath Person Name Role Phone Pcp, No Primary Care Provider Unavailabl e Reason for Visit * Reason Comments Follow-up Encounter Details Date Type Department Care Team (Late st Contact Info) Description 05/21/2023 9:50 AM EDT Office Visit [facility] Orthopaedic Surgery & Sports Medicine [address], [address] [place] [address] Vasyl Montes MD [address] [place] [address] Hip pain, right (Primary Dx) Social History Tobacco Use Types Packs/Day Years Used Date Smoking Tobacco: Never Smokeless Tobacco: Never Tobacco Cessation:Counseling Given: Not Answered Humiliation, Afraid, Rape, and Kick questionnair e [...] Sign Reading Time Taken Comments Blood Pressure 148/97 05/21/2023 9:48 AM EDT Pulse 77 05/21/2023 9:48 AM EDT Temperature 36.7 ??C (98 ??F) 05/21/2023 9:48 AM EDT Respiratory Rate - - Oxygen Saturation 97% 05/21/2023 9:48 AM EDT Inhaled Oxygen Concentration - - Weight 96.2 kg (212 lb) 05/21/2023 9:48 AM EDT Height 182.9 cm (6') 05/21/2023 9:48 AM EDT Body Mass Index 28.75 05/21/2023 9:48 AM EDT documented in this encounter Miscellaneous Notes * Progress Notes - Vasyl Montes MD - 05/21/2023 9:50 AM EDT 05/21/2023 ORTHOPEDIC TRAUMA CLINIC NOTE Injury/Tx: HPI: Tre Blum 47 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 On 05/13/2023 he was involved in injury while working. He reports that he injured his right thigh and hip when his right leg slipped and fell down between the frame of the truck and a platform on which he was standing. Indicates he acutely abducted the leg at that time. He began to note pain in the proximal lateral thigh as well as the hip. He subsequently was admitted and underwent a thorough workup. Initially there was concern about afemoral neck fracture. He then underwent additional testing including an MRI scan and CT scan whichwere negative for fractures. At this time he has been on crutches and states he has noting improvement now. He indicates that he can walk short distances around the house without his crutches but is still noting a limp and pain in the proximal thigh. I reviewed all medical records from his admission. The MRI scan did show evidence of a joint effusion as well as edema in the joint capsule and a suspected small lateral capsular tear. Because of the finding of an effusion he then went underwent aspiration of the hip. There was also an aspiration came back negative for an occult infection. He then was placed on crutches with weight-bearing as tolerated. PAST MEDICAL HISTORY: History reviewed. No pertinent [...] needed for pain for up to 50 doses., Disp: 100 tablet, Rfl: 0 ibuprofen 400 MG tablet, Take 1 tablet (400 mg) by mouth every 6 (six) hours if needed for moderatepain for up to 50 doses., Disp: 50 tablet, Rfl: 0 methocarbamol (Robaxin) 750 MG tablet, Take 1 tablet (750 mg) by mouth every 6 (six) hours if needed for muscle spasms for up to 50 doses., Disp: 50 tablet, Rfl: 0 senna-docusate sodium (Senokot-S) 8.6-50 MG tablet, Take 1 tablet by mouth 2 (two) times a day for 14 days., Disp: 28 tablet, Rfl: 0 traMADol (Ultram) 50 MG tablet, Take 1 tablet (50 mg) by mouth every 8 (eight) hours if needed for moderate pain for up to 10 doses., Disp: 10 tablet, Rfl: 0 Allergies: Allergies Allergen Reactions Penicillins Unknown - Patient states they do not know rxn details Childhood allergy Social History Social History Occupational History Not on file Tobacco Use Smoking status: Never Smokeless tobacco: Never Vaping Use Vaping Use: Not on file Substance and Sexual Activity Alcohol use: Not on file Drug use: Not on file Sexual activity: Not on file Vital signs: Visit Vitals BP (!) 148/97 Pulse 77 Temp 36.7 ??C (98 ??F) Ht 1.829 m (6') Wt 96.2 kg (212 lb) SpO2 97% BMI 28.75 kg/m?? Smoking Status Never BSA 2.21 m?? Constitutional: Well developed. Well nourished. Psychologic: Mood is appropriate. Appropriate affect. Head and Face: Normocephalic. No obvious deformities. Eyes: Extraocular movements intact Pulmonary: Unlabored, normal effort. Cardiac: well perfused, extremities pink. Skin: No rashes on exposed skin surface. Neuro: No focal neuro deficit, normal coordination, normal muscle tone MUSCULOSKELETAL EXAM: He was very pleasant individual in no acute distress. He presented with the crutches. However he was able to walk a few steps in the exam room without his crutches with a slightlimp. On examination of the right lower extremity there was no palpable swelling in the thigh knee or calf. Homans sign was negative. He was tender along the medial aspect of the proximal thigh. There were no tenderness directly over the anterior aspect of the right hip joint. He had full range of motion of the hip without pain except for full external rotation of the hip with produce pain medially along the thigh. Hip flexion adduction abduction were all 5/5. Sensation intact to light touch. IMAGING: I have personally reviewed, and interpreted the patients imaging: Repeat x-rays of right hip today were negative for evidence of hip fractures or other pathology. The hip joint looked normal. ASSESSMENT: Right hip capsular strain PLAN: I explained my findings to him in detail today. I told him that his workup did not show any signs of fractures nor was there any evidence of a hip infection. I want him to continue his crutcheswith weight-bearing as tolerated until his symptoms resolve. I will keep him off work at this time and for the next 3 weeks until I re-evaluate him at that time. I want him to continue take ibuprofen2 tablets three times a day p.c. Vasyl Montes MD documented in this encounter [...] documented as of this encounter Care Teams Spinning Bath Person Relationship Specialty Start Date End Date Pcp, No [address] [place] [address] PCP - General Family Medicine 05/13/23 documented as of this encounter
--- OUTSIDE RECORDS SUMMARY | 2024-01-23 10:18 | XMS_ITS | Encounter Summary ---
Author Organization [facility] Address [address] [place] [address] Care Team Providers Care Information Systems Manager Name Role Phone Pcp, No Primary Care Provider Unavailabl e Encounter Details Date Type Department Care Team (Latest Contact Info) Description 06/10/2023 Travel Social History Tobacco Use Types Packs/Day [...] place to sleep or slept in a chcf (including now)? No 05/14/2023 Utilities Answer Date [...] documented as of this encounter Care Teams Information Systems Manager Relationship Specialty Start Date End Date Pcp, No [address] [place] [address] PCP - General Family Medicine 05/13/23 documented as of this encounter
--- OUTSIDE RECORDS SUMMARY | 2024-01-23 10:18 | XMS_ITS | Encounter Summary ---
Author Organization [facility] Address [address] [place] [address] Care Team Providers Care Chassis Inspector Name Role Phone Pcp, No Primary Care Provider Unavailabl e Reason for Visit * Reason Comments Follow-up Encounter Details Date Type Department Care Team (Late st Contact Info) Description 07/16/2023 10:00 AM EDT Office Visit [facility] Orthopaedic Surgery & Sports Medicine [address], [address] [place] [address] Vasyl Montes MD [address] [place] [address] Hip pain, right (Primary Dx) [...] place to sleep or slept in a mcfp (including now)? No 05/14/2023 Utilities Answer Date [...] Sign Reading Time Taken Comments Blood Pressure 146/96 07/16/2023 10:06 AM EDT Pulse 82 07/16/2023 10:06 AM EDT Temperature 36.7 ??C (98.1 ??F) 07/16/2023 10:06 AM E DT Respiratory Rate - - Oxygen Saturation 98% 07/16/2023 10:06 AM EDT Inhaled Oxygen Concentration - - Weight 95.3 kg (210 lb) 07/16/2023 10:06 AM EDT Height 181.6 cm (5' 11.5 ) 07/16/2023 10:06 AM E DT Body Mass Index 28.88 07/16/2023 10:06 AM EDT documented in this encounter Miscellaneous Notes * Progress Notes - Vasyl Montes MD - 07/16/2023 10:00 AM EDT 07/16/2023 ORTHOPEDIC TRAUMA CLINIC NOTE Injury/Tx: HPI: Tre Blum 48 y.o. male here for follow-up of his right capsular strain and groin muscle strain-referred him to physical therapy once last visit but unfortunately he only was able to start his PT 2 weeks ago. Apparently was some delay in scheduling this with his insurance carrier. Today he reports he does feel better now. He is walking better. PAST MEDICAL HISTORY: History reviewed. No pertinent [...] control/protection: None Vital signs: Visit Vitals BP (!) 146/96 Pulse 82 Temp 36.7 ??C (98.1 ??F) Ht 1.816 m (5' 11.5 ) Wt 95.3 kg (210 lb) SpO2 98% BMI 28.88 kg/m?? Smoking Status Former BSA 2.19 m?? Constitutional: Well developed. Well nourished. Psychologic: Mood is appropriate. Appropriate affect. Head and Face: Normocephalic. No obvious deformities. Eyes: Extraocular movements intact Pulmonary: Unlabored, normal effort. Cardiac: well perfused, extremities pink. Skin: No rashes on exposed skin surface. Neuro: No focal neuro deficit, normal coordination, normal muscle tone MUSCULOSKELETAL EXAM: Today he was walking much better. He had a slightly antalgic gait. On palpation he reported no tenderness over the groin or the adductor muscles. He had full range of motion of the hip today although he did report some feeling of tightness with external and internal rotation. However he did not have any pain with internal external rotation of the hip. His hip flexion extension adduction and abduction were all 5/5 with no pain. His thigh and calf muscles were soft and nontender. IMAGING: I have personally reviewed, and interpreted the patients imaging: Repeat x-rays of the hip today showed hip joint to be well preserved. ASSESSMENT: Right hip capsule and adductor strain PLAN: This point I want him to finish out his PT overThe next 4 weeks. I would like see him back atthat time. We will have to keep him off work at this time since he told me that there was no light duty available and he must be released to full duty in order to go back to work. I also am going to discuss my recommendations and assessment with his director of casework department today. Vasyl Montes MD documented in this encounter Plan of Treatment Not on file documented as of this encounter Results * XR Hip Right 2 or 3 Views (07/16/2023 10:20 AM EDT) Anatomical Region Laterality Modality Lower Extremities, Hip Right Digital R adiography Impressions 07/16/2023 5:12 PM EDT No acute osseous findings. CRITICAL RESULT: ?? No. COMMUNICATION: Per this written report. Drafted by Himanshu Persaud on 07/16/2023 5:11 PM Final report signed by Himanshu Persaud on 07/16/2023 5:12 PM Narrative 07/16/2023 5:12 PM EDT CLINICAL INDICATION: pain TECHNIQUE: XR HIP RIGHT 2 OR 3 VIEWS COMPARISON: June 11, 2023 FINDINGS: No acute fracture or dislocation. Osseous structures in satisfactory alignment. No significant soft tissue swelling. Procedure Note Himanshu Persaud MD - 07/16/2023 CLINICAL INDICATION: pain TECHNIQUE: XR HIP RIGHT 2 OR 3 VIEWS COMPARISON: June 11, 2023 FINDINGS: No acute fracture or dislocation. Osseous structures in satisfactoryalignment. No significant soft tissue swelling. IMPRESSION: No acute osseous findings. CRITICAL RESULT: No. COMMUNICATION: Per this written report. Drafted by Himanshu Persaud on 07/16/2023 5:11 PM Final report signed by Himanshu Persaud on 07/16/2023 5:12 PM Vasyl Montes MD IMG XR PROCEDURES [...] documented as of this encounter Care Teams Chassis Inspector Relationship Specialty Start Date End Date Pcp, [place] [address] PCP - General Family Medicine 05/13/23 documented as of this encounter
--- OUTSIDE RECORDS SUMMARY | 2024-01-23 10:18 | XMS_ITS | Encounter Summary ---
Author Organization [facility] Address [address] [place] [address] Care Team Providers Care Senior Information Security Engineer Name Role Phone Pcp, No Primary Care Provider Unavailabl e Encounter Details Date Type Department Care Team (Late st Contact Info) Description 05/21/2023 10:20 AM EDT Office Visit [facility] Orthopaedic Surgery & Sports Medicine [address], [address] [place] [address] Vasyl Montes MD [address] [place] [address] Hip strain, right, sequela (Primary Dx) Social History Tobacco Use Types [...] place to sleep or slept in a custodial (including now)? No 05/14/2023 Utilities Answer Date [...] Notes - Vasyl Montes MD - 05/21/2023 10:20 AM EDT Today I met with his field nurse case manager. I went over my findings including all of his previous test results. I explained her my impression is that he has sustained an acute soft tissue injuries to the hip and proximal thigh. 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 I want him to continues crutches with weight-bearing as tolerated until his pain resolves. Also recommended he continue take ibuprofen 2 tablets three times a day p.c. I answered all her questions. documented in this encounter Plan of Treatment Not on file documented as of this encounter Visit Diagnoses Diagnosis Hip strain, right, sequela- Primary documented in this encounter Additional Health Concerns Assessment Noted Time A fall risk assessment has been complete d for the patient 05/21/2023 9:48 AM EDT A Body Mass Index follow-up plan has been documented for the patient 05/21/2023 11:08 AM EDT documented as of this encounter Care Teams Senior Information Security Engineer Relationship Specialty Start Date End Date Pcp, Lala [address] [place] [address] PCP - General Family Medicine 05/13/23 documented as of this encounter
--- OUTSIDE RECORDS SUMMARY | 2024-01-23 10:18 | XMS_ITS | Encounter Summary ---
Author Organization [facility] Address [address] [place] [address] Care Team Providers Care Cut Out Machine Operator Name Role Phone Pcp, No Primary Care Provider Unavailabl e Encounter Details Date Type Department Care Team (Latest Contact Info) Description 06/11/2023 Travel Social History Tobacco Use Types Packs/Day [...] place to sleep or slept in a intermediate (including now)? No 05/14/2023 Utilities Answer Date [...] documented as of this encounter Care Teams Cut Out Machine Operator Relationship Specialty Start Date End Date Pcp, No [address] [place] [address] PCP - General Family Medicine 05/13/23 documented as of this encounter
--- OUTSIDE RECORDS SUMMARY | 2024-01-23 10:18 | XMS_ITS | Encounter Summary ---
Author Organization [facility] Address [address] [place] [address] Care Team Providers Care Satin Finisher Name Role Phone Pcp, No Primary Care Provider Unavailabl e Encounter Details Date Type Department Care Team (Latest Contact Info) Description 09/23/2023 Travel Social History Tobacco Use Types Packs/Day [...] documented as of this encounter Care Teams Satin Finisher Relationship Specialty Start Date End Date Pcp, No [address] [place] [address] PCP - General Family Medicine 05/13/23 documented as of this encounter
--- OUTSIDE RECORDS SUMMARY | 2024-01-23 10:18 | XMS_ITS | Encounter Summary ---
Author Organization [facility] Address [address] [place] [address] Care Team Providers Care Pencil Sorter Name Role Phone Pcp, No Primary Care Provider Unavailabl e Encounter Details Date Type Department Care Team (Latest Contact Info) Description 07/09/2023 Travel Social History Tobacco Use Types Packs/Day [...] documented as of this encounter Care Teams Pencil Sorter Relationship Specialty Start Date End Date Pcp, No [address] [place] [address] PCP - General Family Medicine 05/13/23 documented as of this encounter
--- OUTSIDE RECORDS SUMMARY | 2024-01-23 10:18 | XMS_ITS | Encounter Summary ---
Author Organization [facility] Address [address] [place] [address] Care Team Providers Care Property Accountant Name Role Phone Pcp, No Primary Care Provider Unavailabl e Encounter Details Date Type Department Care Team (Late st Contact Info) Description 05/21/2023 Abstract [facility] Orthopaedic Surgery & Sports Medicine [address], [address] [place] [address] Christofer Romano MD [address] [place] [address] Social History Tobacco Use Types [...] place to sleep or slept in a fpc (including now)? No 05/14/2023 Utilities Answer Date [...] documented as of this encounter Care Teams Property Accountant Relationship Specialty Start Date End Date Pcp, No [address] [place] [address] PCP - General Family Medicine 05/13/23 documented as of this encounter
--- OUTSIDE RECORDS SUMMARY | 2024-01-23 10:18 | XMS_ITS | Encounter Summary ---
Author Organization [facility] Address [address] [place] [address] Care Team Providers Care Glove Maker Name Role Phone Pcp, No Primary Care Provider Unavailabl e Encounter Details Date Type Department Care Team (Latest Contact Info) Description 09/24/2023 Travel Social History Tobacco Use Types Packs/Day [...] documented as of this encounter Care Teams Glove Maker Relationship Specialty Start Date End Date Pcp, No [address] [place] [address] PCP - General Family Medicine 05/13/23 documented as of this encounter
--- OUTSIDE RECORDS SUMMARY | 2024-01-23 10:18 | XMS_ITS | Encounter Summary ---
Author Organization [facility] Address [address] [place] [address] Care Team Providers Care Physician Relations Manager Name Role Phone Pcp, No Primary Care Provider Unavailabl e Encounter Details Date Type Department Care Team (Late st Contact Info) Description 07/30/2023 Abstract [facility] Orthopaedic Surgery & Sports Medicine [address], [address] [place] [address] Vasyl Montes MD [address] [place] [address] Social History Tobacco Use Types [...] place to sleep or slept in a residential (including now)? No 05/14/2023 Utilities Answer Date [...] documented as of this encounter Care Teams Physician Relations Manager Relationship Specialty Start Date End Date Pcp, No [address] [place] [address] PCP - General Family Medicine 05/13/23 documented as of this encounter
--- OUTSIDE RECORDS SUMMARY | 2024-01-23 10:18 | XMS_ITS | Encounter Summary ---
Author Organization [facility] Address [address] [place] [address] Care Team Providers Care Backroom Associate Name Role Phone Pcp, No Primary Care Provider Unavailabl e Encounter Details Date Type Department Care Team (Latest Contact Info) Description 07/16/2023 10:10 AM EDT - 07/16/2023 11:59 PM EDT Hospital Encounter [facility] [address] [place] [address] Hip pain, right Discharge Disposition: [...] the past 12 months has th e [employer], gas, oil, or water company threatened to [...] HIP RIGHT 2 OR 3 VIEWS Routine 07/16/2023 10:20 AM EDT Hip pain, right documented in [...] documented as of this encounter Care Teams Backroom Associate Relationship Specialty Start Date End Date Pcp, Lala [address] [place] [address] PCP - General Family Medicine 05/13/23 documented as of this encounter
--- OUTSIDE RECORDS SUMMARY | 2024-01-23 10:19 | XMS_ITS ---
Care Plan - [facility] Created on: January 23, 2024 VELMA RENETTA : 1975 Sex: Male Author Organization [facility] Address [address] [place] [address] Phone Care Team Providers Care Math And Science Instructor Name Role Phone Tyson De Jesus MD Unavailable Unavailable NO, PCP Unavailable Unavailable
--- OUTSIDE RECORDS SUMMARY | 2024-01-23 10:19 | XMS_ITS | Clinical Summary ---
Author Organization [facility] Address [address] [place] [place] [address] Phone Care Team Providers Care Waiter/Waitress Counter Name Role Phone Tyson De Jesus MD Unavailable [phone] NO, PCP Unavailable Unavailable Reason for Visit and Chief Complaint WC EPIDURAL INJ Problems Includes: Problems addressed during this encounter and other active Problems All Visits Onset Date Resolved Date Provider Condition S tatus Lower Back Pain 04/05/2021 DAYANA MARQUEZ PA-C Active Last Documented On 2 1:46PM ; [facility] Plan of Treatment No Plan [...] Active Last Documented On 2 1:02PM ; [facility] Encounters Encounter Provider Location Date Check-In Time Check-Out Time Diagnosis WC EPIDURAL INJ Tyson De Jesus MD [facility] 11/24/19 22 11:55AM 12:09PM Insurance Includes: Active Insurance Policies Plan Name Member ID Group # Subscriber Relationship Effect hannah Dates 1 [facility] [id number] RENETTA CARREON Self 01/24/2021 - Unknown Clinical Notes Includes: Clinical Notes from this encounter No Clinical Notes Recorded
--- OUTSIDE RECORDS SUMMARY | 2024-01-23 10:19 | XMS_ITS | Encounter Summary ---
Author Organization [facility] Address [address] [place] [address] Care Team Providers Care Drywall Carrier Name Role Phone Pcp, No Primary Care Provider Unavailabl e Encounter Details Date Type Department Care Team (Latest Contact Info) Description 05/14/2023 Travel Social History Tobacco Use Types Packs/Day [...] place to sleep or slept in a usp (including now)? No 05/14/2023 Utilities Answer Date [...] documented as of this encounter Care Teams Drywall Carrier Relationship Specialty Start Date End Date Pcp, No [address] [place] [address] PCP - General Family Medicine 05/13/23 documented as of this encounter
--- OUTSIDE RECORDS SUMMARY | 2024-01-23 10:19 | XMS_ITS | Encounter Summary ---
Author Organization [facility] Address [address] [place] [address] Care Team Providers Care Electronic Video Games Servicer Name Role Phone Pcp, No Primary Care Provider Unavailabl e Reason for Visit * Reason Comments Leg Injury * Auth/Cert (Routine) Specialty Diagnoses / Procedures Referred By Contac t Referred To Contact Diagnoses Pelvic straddle injury, initial encounter Christofer Romano MD [address] [address] Phone: tel: fax: PAV A Emergency Department [address] [place] [address] Phone: tel: Referral ID Status Reason Start Date Expiration Date Visits Re quested Visits Authorized [id number] 1 1 Encounter Details Date Type Department Care Team (Late st Contact Info) Description 05/13/2023 10:11 AM EST - 05/15/2023 2:17 PM [facility] Hospital Encounter [facility] PAVA 9 T2 [address]I [address] [place] [address] Rodney Smart MD [address] [place] [address] Lorena Contreras MD [address] [place] [address] Christofer Romano MD [id number] [place] [address] Pelvic straddle injury, initial encounter (Primary Dx) Discharge Disposition: Home or Self Care Social [...] Sign Reading Time Taken Comments Blood Pressure 145/93 05/16/2023 2:15 AM EST Pulse 92 05/16/2023 2:15 AM EST Temperature 36.9 ??C (98.4 ??F) 05/16/2023 2:15 AM ES T Respiratory Rate 18 05/14/2023 8:07 AM EST Oxygen Saturation 90% 05/16/2023 2:15 AM EST Inhaled Oxygen Concentration - - Weight 98.8 kg (217 lb 13 oz) 05/13/2023 8:30 PM EST Height - - Body Mass Index - - documented in this encounter Discharge Instructions * Discharge Instructions* Mk Abdi MD - 05/13/2023 2:39 PM EST Post Discharge Instructions Take medication as prescribed You may weight bear as tolerated on the right lower extremity You may resume a regular diet If your hip pain worsens and or you develop a fever greater than 101 please call/return to the hospital If a positive aspiration sample arises we will notify you and instruct you to return to the hospital For medical questions or concerns after discharge, please contact the Orthopedic Transition Nurse at [phone] Friday through Friday 8:00 am to 2:30 pm. If you feel your concern is a medical emergency please call 911 immediately. * Attachments The following attachments cannot be sent through Care Everywhere. * Straddle Injury, Understanding (Congolese) * Surgical Site Infections, Preventing (Congolese) * Weight Bearing Status: What It Means ([place]) (Congolese) * Methocarbamol Oral Tablet (Congolese) * Tramadol Oral Tablet (Congolese) * Controlled Substance Discharge Sheet - LANA () (Congolese) documented in this encounter Medications at Time of Discharge [...] 05/15/2023 05/29/2023 documented as of this encounter Miscellaneous Notes * Addendum Note - Alie Sánchez RN - 05/15/2023 2:17 PM ESTEncounter addended by: Alie Sánchez RN on: 05/23/2023 10:53 AM Actions taken: Utilization Review data saved * Addendum Note - Alie Sánchez RN - 05/15/2023 2:17 PM ESTEncounter addended by: Alie Sánchez RN on: 05/23/2023 10:53 AM Actions taken: Utilization Review data saved * Addendum Note - Alie Sánchez RN - 05/15/2023 2:17 PM ESTEncounter addended by: Alie Sánchez RN on: 07/08/2023 3:37 PM Actions taken: Utilization Review saved, Utilization Review data saved * Nursing Note - Carole Coley - 05/15/2023 1:36 PM EST INT removed with tip intact. Instructions given to Pt and , verbalized understanding. Request placed for transport. * Progress Notes - Collette Alanis RN - 05/15/2023 11:44 AM EST Case Management Discharge Note Tre Blum 47 y.o. male CSN: [id number] Admission: 05/13/2023 10:11 AM Primary Problem: Pelvic straddle injury, initial encounter Primary Landscaping Crew Leader: Primary Caregiver: Self Assistance Available at Discharge: Current Outpatient/Agency/Support Group: DME ([email or web address] will supply. Patient given crutches until Worker Comp get his rolling walker) Availability of Care Givers (#Hours): 1-4 hours Family/Landscaping Crew Leader(s) Willingness Assessed to care for patient at home: Yes Family/Landscaping Crew Leader(s) Readiness Assessed to care for patient at home: Yes Housing Circumstances-Z Codes: Housing Circumstances (select all that apply): None Applicable Patient Referred to Financial or Community Resources: Financial Resources: Other (Comment) ([employer] Luisa Wing (adjustor) [phone]) Community Resources: Other (Comment) (Not indiscted) Other : Home with assist Discharge Facility/Level of Care Needs: Discharge Facility/Level of Care Needs: 1-Home or Self Care Patient's Choice of Community Agency(s): Patient's Choice of Community Agency(s): [email or web address] will supply rolling walker.. Patient given crutches until Worker Comp get his rolling walker Patient/Family Anticipated Services at Transition: Patient/Family Anticipated Services at Transition: durable medical equipment ([email or web address] will supply rolling walker. Patient given crutches until Worker Comp get his rolling walker) DME/Equipment Needed after Discharge: Equipment Currently Used at Home: none Equipment Needed After Discharge: crutches, walker, rolling ([email or web address] will supply rolling walker. Patient given crutches until Worker Comp get his rolling walker) Readmission Within the Last 30 Days: Readmission Within the Last 30 Days: no previous admission in last 30 days Medicare Documentation: Not rquired Follow-up: No follow-up provider specified. Discharge Transportation: Transportation Anticipated: family or friend will provide Transportation Home at Discharge: Family/Friend will Provide Has discharge transport been arranged?: Yes What day is the transport expected?: 05/15/23 Follow Up Transport: Transportation Needed to Follow up Appoinments: Family/Friend will Provide Additional Comments: Per Team, Patient will discharge home today. Home with assist and rolling walker. Patient is Workers Comp with [employer]. Luisa Wing [phone] is the adjustor. Luisa has not returnedmy call from Saturday 05/13 or today 05/14. [employer] will supply rolling walker. Patient given crutches until Worker Comp get his rolling walker. Family will assist and provide follow up transportation. Patient aware and agreeable with discharge POC. Collette Alanis, RN * Care Plan - Carole Coley - 05/15/2023 11:12 AM EST Problem: Adult Inpatient Plan of Care Goal: Plan of Care Review 05/15/2023 1111 by Carole Coley Outcome: Met Flowsheets (Taken 05/15/2023 1111) Plan of Care Reviewed With: patient 05/15/2023 0818 by Carole Coley Outcome: Ongoing, Progressing Flowsheets (Taken 05/14/2023 0358 by Virgen Rolon) Plan of Care Reviewed With: patient Goal: Patient-Specific Goal (Individualized) 05/15/2023 1111 by Carole Coley Outcome: Met 05/15/2023 0818 by Carole Coley Outcome: Ongoing, Progressing Goal: Absence of Hospital-Acquired Illness or Injury 05/15/2023 1111 by Carole Coley Outcome: Met 05/15/2023 0818 by Carole Coley Outcome: Ongoing, Progressing Goal: Optimal Comfort and Wellbeing 05/15/2023 1111 by Carole Coley Outcome: Met 05/15/2023 0818 by Carole Coley Outcome: Ongoing, Progressing Goal: Readiness for Transition of Care 05/15/2023 1111 by Carole Coley Outcome: Met 05/15/2023 0818 by Carole Coley Outcome: Ongoing, Progressing Problem: Pain Acute Goal: Optimal Pain Control and Function 05/15/2023 1111 by Carole Coley Outcome: Met 05/15/2023 0818 by Carole Coley Outcome: Ongoing, Progressing Problem: Fall Injury Risk Goal: Absence of Fall and Fall-Related Injury 05/15/2023 1111 by Carole Coley Outcome: Met 05/15/2023 0818 by Carole Coley Outcome: Ongoing, Progressing * Discharge Summary - Mk Abdi MD - 05/15/2023 10:43 AM EST Hospitalization Admit Date/Time: 05/13/2023 10:11 AM Admitting Attending: Christofer Romano Discharge Date: 05/15/23 Discharge Attending Physician: Christofer Romano MD PCP name and Address: Pcp, [address] [address] Referring provider name and address: No referring provider defined for this encounter. Chief Concern, Brief History of Present Illness, and Hospital Course Patient arrived to [facility] ED 05/14/23 after a straddle injury that occurred at work. Orthopedic surgery was consulted due to concern for a right femoral neck fracture. Xray, CT and MRI imaging were all negative for fracture. MRI did show a left hip effusion. Given his pain with ambulation and pain with passive ROM of the R hip in addition to elevated CRP value, the decision was made to aspirate the right hip on the evening of 05/14/23. 8 ml of synovial fluid were obtained. PCR testing did not identify presence of pathogen. Following aspiration the patient's pain and ability to ambulate improved. He expressed interest in discharging on 05/15. We discussed multimodal pain control with the use of anti-inflammatories as first line. We also informed the patient that we would closely watch his aspiration cultures in the event a positive value were to return and he needed to come back to the hospital. The patient was kept on DVT prophylaxis with SCD's and lovenox. The patient was cleared to be discharged by PT/OT prior to discharge. The patient was discharged 05/15/23. Surgeries and Procedures R Hip aspiration Medication List .. acetaminophen 500 MG tablet Commonly known as: Tylenol Take 2 tablets (1,000 mg) by mouth every 6 (six) hours if needed for pain for up to 50 doses. ibuprofen 400 MG tablet Take 1 tablet (400 mg) by mouth every 6 (six) hours if needed for moderate pain for up to 50 doses. methocarbamol 750 MG tablet Commonly known as: Robaxin Take 1 tablet (750 mg) by mouth every 6 (six) hours if needed for muscle spasms for up to 50 doses. senna-docusate sodium 8.6-50 MG tablet Commonly known as: Senokot-S Take 1 tablet by mouth 2 (two) times a day for 14 days. traMADol 50 MG tablet Commonly known as: Ultram Take 1 tablet (50 mg) by mouth every 8 (eight) hours if needed for moderate pain for up to 10 doses. Where to Get Your Medications These medications were sent to [facility] - [place], [place] - [address] [facility] [address] acetaminophen 500 MG tablet ibuprofen 400 MG tablet methocarbamol 750 MG tablet senna-docusate sodium 8.6-50 MG tablet traMADol 50 MG tablet Discharge Diagnosis Medical Problems Active and Resolved Hospital Problems Hospital * (Principal) Pelvic straddle injury, initial encounter Post Discharge Instructions Take medication as prescribed You may weight bear as tolerated on the right lower extremity You may resume a regular diet If your hip pain worsens and or you develop a fever greater than 101 please call/return to the hospital If a positive aspiration sample arises we will notify you and instruct you to return to the hospital For medical questions or concerns after discharge, please contact the Orthopedic Transition Nurse at [phone] Friday through Friday 8:00 am to 2:30 pm. If you feel your concern is a medical emergency please call 911 immediately. Outpatient Follow-Up Future Appointments Date Time Provider Department Center 05/21/2023 9:50 AM Vasyl Motnes MD [facility] Test Results Pending At Discharge Pending Labs Order Current Status Body fluid, cytospin, pathologist interpretation In process Body Fluid Culture and Gram Stain Preliminary result Pertinent Physical Exam At Time of Discharge Right lower extremity Inspection: TTP about hip and at aspiration site, bandaid in place over Motor: Motor intact TA, GSC, FHL, EHL Sensory exam: SILT in Sural, Saphenous, Deep peroneal, Superficial peroneal, Tibial nerve distributions Vascular: 2+ DP and PT pulses, toes WWP with CR <2 sec Compartment soft and compressible No pain with passive stretch of the toes Discharge Disposition/Condition Disposition: Home Condition: Stable (s/sx potential problems absent or manageable) I spent >30 minutes of patient care and instruction time in preparation for this discharge. 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 Montes on 05/21/2023 at 0950. Op-Plan: Non-op pain for patient. Contact Card Given: yes Comments: Patient states pain has slightly improved. Team to watch cultures. Patient to discharge home today. For medical questions or concerns after discharge, please contact the Orthopedic Transition Nurse at [phone] Friday through Friday 8:00 am to 2:30 pm. If you feel your concern is a medical emergency please call 911 immediately. * Care Plan - Carole Coley - 05/15/2023 8:18 AM EST Problem: Adult Inpatient Plan of Care Goal: Plan of Care Review Outcome: Ongoing, Progressing Flowsheets (Taken 05/14/2023 0358 by Virgen Rolon) Plan of Care Reviewed With: patient Goal: Patient-Specific Goal (Individualized) Outcome: Ongoing, Progressing Goal: Absence of Hospital-Acquired Illness or Injury Outcome: Ongoing, Progressing Goal: Optimal Comfort and Wellbeing Outcome: Ongoing, Progressing Goal: Readiness for Transition of Care Outcome: Ongoing, Progressing Problem: Pain Acute Goal: Optimal Pain Control and Function Outcome: Ongoing, Progressing Problem: Fall Injury Risk Goal: Absence of Fall and Fall-Related Injury Outcome: Ongoing, Progressing * Progress Notes - Ba Tejeda MD - 05/15/2023 4:09 AM EST ORTHOPAEDIC SURGERY PROGRESS NOTE SUBJECTIVE Patient taken for aspiration of right hip effusion yesterday in IR suite. 8cc of cloudy yellow fluid aspirated. Sent for CCD, Cx, PCR and crystals. Patient reporting some improvement in right hip pain after aspiration. No fevers or chills. NPO since midnight. OBJECTIVE Visit Vitals BP 128/79 Pulse 79 Temp 36.4 ??C (97.5 ??F) Wt 98.8 kg (217 lb 13 oz) SpO2 96% Labs in last 18 hours CBC WBC 12.62 (H) Hb 13.8 Plt 239 Hct 42.1 ANC ?? INR 1.0, PTT ??, Anti-Xa ?? BMP Na 139 Cl 105 BUN 9 Glu 207 (H) K 3.8 Co2 24 Cr 0.74 (L) Ca 9.5 iCa ?? Mg ??, Phos ?? Lactate ?? LFT AST ?? AlkPhos ?? T Prot ?? ALK ?? Bili ?? Alb ?? D.Bili ?? PHYSICAL EXAMINATION No acute distress Non labored breathing Peripheral perfusion intact FOCUSED MUSCULOSKELETAL EXAM Right lower extremity Inspection: TTP about hip, bandaid in place over Motor: Motor intact TA, GSC, FHL, EHL Sensory exam: SILT in Sural, Saphenous, Deep peroneal, Superficial peroneal, Tibial nerve distributions Vascular: 2+ DP and PT pulses, toes WWP with CR <2 sec Compartment soft and compressible No pain with passive stretch of the toes ASSESSMENT AND PLAN Tre Blum is a 47 y.o. male patient with R hip pain (non-op, no femoral neck fx) Edited by: Yan Nash MD at 05/14/2023 0828 Mobility Orders Mobility Protocol: Ortho/Trauma/Spine Mobility Guidelines Spinal Precautions: No cranial, cervical or thoracolumbar spinal precautions necessary Extremity: RLE Extremity Precautions: Extremity Precautions Mobility Restrictions (RLE): Weight bear as tolerated (WBAT) Type of Brace (RLE): None Other mobility precautions: No other precautions required Fall: H/H 14.4/43.2, BMP ok, INR 1 (05/13), ESR 4 CRP 105 (05/13), [place] [address] and 90% PMNs however negative joint fluid PCR is reassuring.Patient experiencing significant pain relief with aspiration and would like to continue with conservative management at this time. We discussed with patient that we recommend several more serial evaluations prior to discharge however patient would like to discharge home today as he feels much better. We will continue to monitor closely with outpatient follow up in approximately 1 week to follow patient's right hip pain. Regular diet DVT prophylaxis Pain control per primary Nutritional optimization Bowel regimen PT/OT Joe Tejeda MD PGY-1, Orthopaedic Surgery [facility] Orthopaedic Trauma Service Pager: [phone] Orthopaedic Recon/Spine/Foot and Ankle Service Pager: [phone] Cosigned by Wilbert Shaw MD at 05/15/2023 10:51 AM EST * Progress Notes - Yan Nash MD - 05/14/2023 4:01 PM EST Orthopedic Surgery Progress Note 05/14/23 SUBJECTIVE: Patient continues to have right hip pain. MRI overnight demonstrated no acute femoral neck fracturebut demonstrated a effusion to the right hip. Patient worked with PT today. He was able to ambulateusing a walker but had 10/10 hip pain. Resting in bed, his pain is located in the right groin and he reports 3- 4/10. Inflammatory markers were obtained: WBC 13.27, ESR44, CRP 105. Afebrile. Denies IVDU. No significant past medical history. Vapes. AT baseline, community ambulator with no assistive devices. No proceeding right hip pain prior to fall at work. OBJECTIVE Vitals: 05/14/23 1535 BP: (!) 143/84 Pulse: 74 Resp: Temp: 36.7 ??C (98 ??F) SpO2: 97% Physical Exam AAOx3. Patient is non-ill appearing No acute distress Non-labored breathing on room air Pulses regular RLE Patient localized his pain to the right groin region. Pain is exacerbated with minimal hip flexion and IR>ER Motor - TA, GSC, EHL, FHL intact Sensory - SP, DP, Sural, Saph, Tib nn. intact Vascular - 2+ DP/PT pulses, cap refill <2sec ASSESSMENT Tre Blum is a 47 y.o. male with R hip pain (MRI negative for femoral neck fx, moderate effusion noted PLAN -Weight bearing status: WBAT RLE -Pain control -DVT prophylaxis -Bowel Regimen -PT/OT -Dispo: MRI revealed a moderate effusion in the right hip. Inflammatory markers were obtained with WBC 13, ESR 4, CRP 105. Given effusion and elevated CRP, ortho to perform aspiration of right hip. Patient will be made NPO pending aspiration results. Mobility Orders Mobility Protocol: Ortho/Trauma/Spine Mobility Guidelines Spinal Precautions: No cranial, cervical or thoracolumbar spinal precautions necessary Extremity: RLE Extremity Precautions: Extremity Precautions Mobility Restrictions (RLE): Weight bear as tolerated (WBAT) Type of Brace (RLE): None Other mobility precautions: No other precautions required Yan Nash MD [facility] Department of Orthopedic Surgery and Sports Medicine Cosigned by Wilbert Shaw MD at 05/15/2023 10:50 AM EST * Progress Notes - Collette Alanis RN - 05/14/2023 1:44 PM EST Case Management Adult Initial Progress Note Tre Blum 47 y.o. male CSN: [id number] Admission: 05/13/2023 10:11 AM Primary Problem: Pelvic straddle injury, initial encounter Tile Sorter reviewed chart and spoke with patient to complete this Initial Case Management Assessment. PCP: Pcp, No Emergency Contact: Extended Emergency Contact Information Primary Emergency Contact: Alanna Cooper Mobile Relation: Significant Other Preferred language: Congolese Black Top Machine Operator needed? No Insurance: Primary Coverage Payer Plan Sponsor Code Group Number Group Name No coverage found Patient information: Primary Caregiver: Self Support System: Immediate family (Alanna ([place])) Daily Living Activities: Functional Status: Independent Living Arrangements: Spouse/Significant other Type of Residence: Private residence, Single Level [address] [address] Smoker in the Home?: Yes Current DME: Equipment Currently Used at Home: none Current DME Provider: None. No HH/HI/Dialysis Income Information: Income Source: Employed Income/Expense Information: Income meets expenses Current Resources Utilized: None Housing Circumstances-Z Codes: Housing Circumstances (select all that apply): None Applicable Patient Referred to: Financial Resources: Other (Comment) ([employer] Luisa Wing (adjustor) [phone]) Community Resources: Other (Comment) (Not indiscted) Other : Home with assist Anticipated Discharge Date: tbd Patient's Discharge Goal: Go Home Assistance Available at Discharge: Alanna ([place]) Discharge Transport: Alanna ([place]) Follow Up Transport: Alanna ([place]) Home Health / Home Infusion / Outpatient Dialysis Services: Current DME Provider: None. No HH/HI/Dialysis Living Will/Advance Directive/Power of Clinical Training Specialist /Guardian: No Lw or POA signed Additional Comments: Per Team, Patient may be able to discharge later this day. Home with assist with rolling walker recs. Spoke with patient concerning discharge POC. Patient stated this injury happened at work. Patientis employed by [employer]. 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 Irvin provided the Workers Comp Insurance is [employer]. Luisa Wing (P) [phone] is the adjustor. FELIPE called and left an voice message for Luisa in attempt to fax her the rolling walker order and documents for thisadmission. At the time of this writing not return call. CM provided the patient with the Worker Comp information. Luisa will assign the claim number as well. Alanna ([place]) will assist and provide transportation to follow up visits. CM will continue to follow. Collette Alanis RN * Consults - Darlene Vazquez - 05/14/2023 12:58 PM EST Occupational Therapy Screen Patient Name: Tre Blum Today's Date: 05/14/2023 Tre Blum was screened for occupational therapy needs 05/14/2023. Patient is modified independent with ADLs and mobility at this time . Patient demonstrates no further occupational therapy needs at this time. Occupational therapy will sign off. Thank-you for the consult. Written by Darlene Vazquez on 05/14/2023 at 12:59 PM. * Nursing Note - Zahraa Chew RN - 05/14/2023 11:40 AM EST Orthopedic Transition Nurse Note General: Spoke with: Patient and Bedside cnc supervisor and Interventions: Assessed: Education: Education provided on: Weight bearing mobility and Pain protocol/management Plan of Care: Follow up with TBD. Op-Plan: Non-op pain for patient. Contact Card Given: yes Comments: Discussed with patient that MRI showed no fracture, but did show some effusion in the joint that the team was going to take a closer look at. PT/OT recs HWA. Patient is wanting to talk to a chief about how long it will take him to recover; will reach out to team to see if the chief can come and answer questions. Team is planning on discharging patient later today after they take a closer look at the MRI. For medical questions or concerns after discharge, please contact the Orthopedic Transition Nurse at [phone] Friday through Friday 8:00 am to 2:30 pm. If you feel your concern is a medical emergency please call 911 immediately. * Discharge Instr - Other Orders - Zahraa Chew RN - 05/14/2023 9:36 AM EST Based upon recent changes to [place] law related to prescribing opioid pain medications, our providers will not provide more than a 14 day supply of controlled medications following a major surgery or trauma from the date of your injury or hospital discharge. [place], & [address] [place] 9:260. * Discharge Instr - AVS First Page - Zahraa Chew RN - 05/14/2023 9:36 AM EST For medical questions or concerns after discharge, please contact the Orthopedic Transition Nurse at [phone] Friday through Friday 8:00 am to 2:30 pm. If you feel your concern is a medical emergency please call 911 immediately. * Discharge Instr - Activity - Zahraa Chew RN - 05/14/2023 9:36 AM EST Move around as you are able. Do not drive while taking narcotic medications. Use assistive equipment as instructed. Weight bearing as tolerated through right leg. * Care Plan - Carole Coley - 05/14/2023 9:20 AM EST Problem: Adult Inpatient Plan of Care Goal: Plan of Care Review Outcome: Ongoing, Progressing Flowsheets Taken 05/14/2023 0920 by Carole Coley Progress: improving Taken 05/14/2023 0358 by Virgen Rolon Plan of Care Reviewed With: patient Goal: Patient-Specific Goal (Individualized) Outcome: Ongoing, Progressing Goal: Absence of Hospital-Acquired Illness or Injury Outcome: Ongoing, Progressing Goal: Optimal Comfort and Wellbeing Outcome: Ongoing, Progressing Goal: Readiness for Transition of Care Outcome: Ongoing, Progressing Problem: Pain Acute Goal: Optimal Pain Control and Function Outcome: Ongoing, Progressing Problem: Fall Injury Risk Goal: Absence of Fall and Fall-Related Injury Outcome: Ongoing, Progressing * Progress Notes - Robin Nunez - 05/14/2023 8:33 AM EST Physical Therapy Evaluation Patient Name: Tre Blum Today's Date: 05/14/2023 PT Discharge Recommendations: Home with assistance Equipment Recommended: Rolling walker Discharge Transportation Recommendations: Car History Tre Blum is 47 y.o. male admitted 05/13/2023 for work-up of Pelvic straddle injury, initialencounter. Problem List Active Hospital Problems Diagnosis Date Noted Pelvic straddle injury, initial encounter 05/13/2023 Procedures Past Medical History Patient has no past medical history on file. Past Surgical History Patient has no past surgical history on file. Precautions Mobility Protocol: Ortho/Trauma/Spine Mobility Guidelines Spinal Precautions: No cranial, cervical or thoracolumbar spinal precautions necessary Extremity: RLE Extremity Precautions: Extremity Precautions Mobility Restrictions (RLE): Weight bear as tolerated (WBAT) Type of Brace (RLE): None Other mobility precautions: No other precautions required Subjective Pt agreeable to PT session. Participants in Care Family/Caregiver Present: No Black Top Machine Operator: Not Applicable Presentation Oxygen Therapy: None (Room air) Lines and Tubes: Intravenous access Pre-Session: Supine Post-Session: Sitting: edge of bed, Call light in reach Post-Session Comments: Pt resting comfortably in bed Home Living/Set-up Lives With: Spouse Home Type: House Home Adaptive Equipment: None Home Layout: One level, Stairs to enter without rails Number of Stairs: 1 Bathroom: Tub/Shower: Walk-in shower Bathroom: Toilet: Standard Bathroom: Accessibility: Accessible Prior Level of Function Receives Help From: No assist required prior to admission Level of Mobility: Ambulatory- community Mobility [place]: Independent gait without device History of Falls: Yes ADL Performance: Independent Patient/Family Goals Pt wants to go home Objective Pain Pain Score (0-10): 5 Location: right leg Intervention: ambulation/increased activity, position adjusted, and prescribed exercises encouraged Response: comfortable at end of session Delirium Screening Diaz Agitation Sedation Scale (RASS): Alert and calm Confusion Assessment Method-ICU (CAM-ICU/PCAM-ICU) Feature 3: Altered Level of Consciousness: Negative Cognition Overall Cognitive Status: Within Functional Limits Arousal/Alertness: Appropriate responses to stimuli Mood/Behavior: Alert Orientation Level: Oriented X4 Single Step Commands: Consistently Method of Communication: Verbal Vision - Basic Assessment Current Vision: Intact Right Upper Extremity Examination RUE Assessment: Within Functional Limits Manual Muscle Testing - RUE: Within functional limits Sensation Light Touch: Right Upper Extremity: Intact Left Upper Extremity Examination LUE ROM Assessment LUE Assessment: Within Functional Limits Manual Muscle Testing - LUE Manual Muscle Testing - LUE: Within functional limits Sensation Light Touch: Left Upper Extremity: Intact Right Lower Extremity Examination RLE ROM Assessment RLE Assessment: Within Functional Limits Manual Muscle Testing - RLE Manual Muscle Testing - RLE: Within functional limits Sensation Light Touch: Right Lower Extremity: Intact Left Lower Extremity Examination LLE Assessment: Within Functional Limits Manual Muscle Testing: Within functional limits Sensation Light Touch: Left Lower Extremity: Intact Bed Mobility Bed Mobility Exam: Rolling/Turning Level of [place]: Modified independence Assistive Device: Bed rails Bed Mobility Exam: Scooting/Bridging Level of [place]: Modified independence Assistive Device: Bed rails Bed Mobility Exam: Supine to Sit Level of [place]: Modified [place] Assistive Device: Bed rails Bed Mobility Exam: Sit to Supine Level of [place]: Modified independence Assistive Device: Bed rails Transfers Transfer Exam: Sit to stand Level of [place]: Modified independence Assistive Device: Walker, rolling Transfer Exam: Stand to Sit Level of [place]: Modified independence Assistive Device: Walker, rolling Gait Training ( minutes) Device: Rolling walker Assistance: Modified independence Distance: 100ft Gait Analysis: Pt with decreased step length and pili; Pt did not require verbal cues for appropriate use of assistive device Stairs Stair Training Interventions: Verbal cues on proper way to ascend and descend stairs Therapeutic Exercise (8 minutes) Pt given written HEP: AP, QS, GS, TKE, HS, SLR, hip ab/adduction to be performed 3x/day 20 reps each. Pt demonstrates understanding of HEP with verbal and tactile cues. Pt educated on importance of exercises to improve functional mobility. Balance Static Sitting Balance Static Sitting-Balance Support: Right upper extremity support, Left upper extremity support, Feet supported Static Sitting-Level of Assistance: Independent Static Standing Balance Static Standing-Balance Support: Right upper extremity support, Left upper extremity support Static Standing-Level of Assistance: Supervision Mobility CARE Tool Performance MOBILITY CARE ITEMS CARE SCORE Roll Left and Right 4 Sit to Lying 4 Lying to Sitting on Side of Bed 4 Sit to Stand 4 Chair/[id number] Transfer 9 Toilet Transfer 9 Car Transfer 10 Walk 10 Feet 4 Walk 50 Feet with Two Turns 4 Walk 150 Feet Walking 10 Feet of Uneven Surfaces 10 1 Step (Curb) 4 Steps 12 Steps Picking up Object Wheel 50 Feet with Two Turns Wheel 150 Feet CARE Tool Performance Score Tyler Score Assist Level Description 6 Independent Patient completes the activity by him/herself with no assistance from a helper. 5 Set-up or Clean-up Assistance [place] sets up or cleans up; patient completes activity. [place] assists only prior to or following the activity. 4 Supervision or touching assistance [place] provides verbal cues and/or touching/steadying and/or contact guard assistance as patient completes activity. Assistance may be provided throughout the activity or intermittently. 3 Partial/Moderate Assistance [place] does LESS THAN HALF the effort. [place] lifts, holds or supports trunk or limbs, but provides less than half the effort. 2 Substantial/Maximal Assistance [place] does MORE THAN HALF the effort. [place] lifts or holds trunkor limbs and provides more than half the effort. 1 Dependent [place] does ALL of the effort. Patient does none of the effort to complete the activity. Or, the assistance of 2 or more helpers is required for the patient to complete the activity. Activity Not Attempted Values 7 Patient refused. 9 Not applicable - Not attempted and the patient did not perform this activity prior to the currentillness, exacerbation, or injury. 10 Not attempted due to environmental limitations (e.g., lack of equipment, weather constraints) 88 Not attempted due to medical condition or safety concerns Standardized Assessments Standardized Assessments Standardized Assessments: AMPAC 6-Clicks Mobility Assessment AMPA 6-Clicks Mobility Assessment Difficulty patient has turning over in bed (including adjusting bedclothes, sheets, and blankets)?:None Difficulty patient has sitting down on and standing up from a chair with arms (wheelchair, bedside commode, etc.)?: None Difficulty patient has moving from lying on back to sitting on the side of the bed?: None How much help does the patient need moving to and from a bed to a chair (including a wheelchair)?: None How much help does the patient need to walk in hospital room?: None How much help does the patient need climbing 3-5 steps with a railing?: Unable AMPA 6-Clicks Mobility Assessment Total : 21 Assessment Pt tolerated 23 minutes of therapy today. Pt was able to complete all transfers with modified independence and was able to ambulate 100ft with modified independence with rolling walker. Pt reported minimal fatigue after activity and was educated on the importance of exercises to improve functional mobility. Pt reports feeling comfortable going home using rolling walker. Pt with no further needs for acute PT at this time. Impairments: Impaired functional mobility/transfers, Impaired gait dynamics/performance Activity Limitations: Inability to ambulate independently, Inability to complete ADLs independently, Inability to ambulate community distances Participation Restrictions: Self-care, Home management, Community leisure Diagnosis: Pt with decreased functional mobility Rehab Potential: Good, to achieve stated therapy goals Prior to admission patient lived with spouse/significant other and was independent with community ambulation. Patient's life role(s) include full/part- time occupation, participation in household management, and participation in community/leisure activities. Upon discharge from [facility] patient will require Home with assistance to support eventual return home with the ability to navigate stairs to enter/exit home, stand for several minutes to prepare meals independently, perform independent toileting and hygiene, function independently within home several hours daily while support person is unavailable, transfer independently to/from chair and bed, and safely navigate around the home using assistive device. Eval Complexity Clinical Presentation: Stable and/or uncomplicated characteristics Clinical Decision Making: Low complexity PT Recommendations Discharge Destination: Home with assistance Discharge Equipment: Rolling walker Demonstrates Need for Referral to Another Service: Social work Plan Patient no longer demonstrates need for inpatient physical therapy services. Patient to be discharged from physical therapy. Cosigned by Ivana Joiner at 05/14/2023 9:53 AM EST Associated attestation - Ivana Joiner - 05/14/2023 9:53 AM EST As supervising therapist I have read and agree with documentation entered by Physical Therapy student on this patient. * Care Plan - Virgen Rolon - 05/14/2023 3:59 AM EST Pt verbalized understanding of fall prevention, pain control plan. NPO after midnight for OR to right hip. * H&P - LeShea valladares Bill, ROAD BUILDER - 05/13/2023 5:33 PM EST Chief Complaint: R hip pain HPI: Patient is a 47 yr old male with no known PMH who presents to the ED with ongoing R hip pain after his R leg got caught and straddled at work between 2 carts/platforms. He had immediate pain to his his R knee and hip. He has been unable to walk since that time. Reports that most of his painis in his right groin at this time. Imaging today revealed a subtle non-displaced R femoral neck fx. Past Medical History: denies Past Surgical History: denies Family History: family history is not on file. Reviewed and found to be non contributory to HPI/CC. Family or Personal History of DVT/PE?: denies Allergies: Allergies Allergen Reactions Penicillins Swelling Metal Allergy: No Social History: Tobacco: vapes daily Alcohol: denies Illicit substance use: denies Lives with in [employer] Employment:works at [employer] ROS: A 14 point review of systems was conducted and was negative except aforementioned in the HPI, and if present the following systems listed below: Physical Exam: General:NAD Vitals: Visit Vitals BP 123/74 (BP Location: Left arm, Patient Position: Lying) Pulse 87 Temp 37.5 ??C (99.5 ??F) (Oral) Wt 98.9 kg (218 lb 0.6 oz) SpO2 96% Psych: AOx3, Appropriate mood and affect Eyes: EOMI, PERRLA, Sclera Anicteric HENMT: NCAT, mmm, good dentition GI: Soft, NT, No organomegaly Resp: Good effort, symmetrical chest rise CV: No evidence of lymphedema, Pulses as below. Skin: No palpable masses, No rashes or lesions, except specificaly mentioned below on each extremity Musculoskeletal Exam: Neck: Neck non tender to palpation, no step-off Chest: Clavicles non tender to palpation Spine: Cervical spine non tender to palpation, no step-off, Thoracic spine non tender to palpation, no step-off Lumbar spine non tender to palpation, no step-off Pelvis: stable to AP/Lat compression RUE: skin intact, no deformity, soft compartments, no pain with passive stretch, non tender to palpation ROM: Full/painless/stable at shoulder, elbow, and wrist Motor: 5/5 ER/IR, 5/5 Delt, 5/5 Bic, 5/5 Tri, 5/5 WF, 5/5 WE, 5/5 FF, 5/5 FE, 5/5 Fabd, 5/5 EPL, 5/5 FPL Sensory: Sensation intact to light touch axillary, radial, median, ulnar nn. Vascular: 2+ radial pulse, cap refill <2 sec LUE: skin intact, no deformity, soft compartments, no pain with passive stretch, non tender to palpation ROM: Full/painless/stable at shoulder, elbow, and wrist Motor: 5/5 ER/IR, 5/5 Delt, 5/5 Bic, 5/5 Tri, 5/5 WF, 5/5 WE, 5/5 FF, 5/5 FE, 5/5 Fabd, 5/5 EPL, 5/5 FPL Sensory: Sensation intact to light touch axillary, radial, median, ulnar nn. Vascular: 2+ radial pulse, cap refill <2 sec RLE: exam limited 2/2 pain, abrasion to medial aspect of proximal tibia and lateral aspect of hip/thigh ROM: Full/painless/stable at ankle Motor: 4/5 TA, 4/5 GSC, 4/5 EHL, 4/5 FHL, 4/5 Ever Sensory: Sensation intact to light touch deep peroneal, superficial peroneal, tibial, sural, saphenous nn. Vascular:2+ dorsalis pedis and posterior tibial pulse, cap refill <2 sec LLE: skin intact, no deformity, soft compartments, no pain with passive stretch, non tender to palpation ROM: Full/painless/stable at hip, knee, and ankle Motor: 5/5 HAbd, 5/5 HF, 5/5 KE, 5/5 KF, 5/5 TA, 5/5 GSC, 5/5 EHL, 5/5 FHL, 5/5 Ever Sensory: Sensation intact to light touch deep peroneal, superficial peroneal, tibial, sural, saphenous nn. Vascular: 2+ dorsalis pedis and posterior tibial pulse, cap refill <2 sec Labs: Labs in last 18 hours CBC WBC 13.72 (H) Hb 14.1 Plt 256 Hct 42.0 ANC 11.10 (H) INR 1.0, PTT ??, Anti-Xa ?? BMP Na 139 Cl 103 BUN 9 Glu 118 (H) K 3.7 Co2 26 Cr 0.84 Ca 8.9 iCa ?? Mg ??, Phos ?? Lactate ?? LFT AST 31 AlkPhos 84 T Prot 6.7 ALK 39 Bili 0.9 Alb ?? D.Bili ?? Imaging: Xrays of the following, reviewed and requested by me demonstrate the following: Radiology Results (Copy/paste from radiology report, as required): Right femoral neck fx Assessment: 47 yr old male with a R femoral neck fx Plan: -patient would benefit from operative fixation -will obtain MRI of hip to better evaluate fracture pattern -admit to Ortho -pain control -NWB RLE -FIB ordered -NPO at midnight Shea Le APRN Department of Orthopedic Surgery and Sports Medicine Consult Pager: [phone] Service Pager: [phone] Cosigned by Arturo Hernandez MD at 05/14/2023 2:48 PM EST Associated attestation - Arturo Hernandez MD - 05/14/2023 2:48 PM EST Signature Only * Consults - Shea Le APRN - 05/13/2023 4:38 PM ESTAssociated Order(s): IP CONSULT TO ORTHOPAEDICS Chief Complaint: R hip pain HPI: Patient is a 47 yr old male with no known PMH who presents to the ED with ongoing R hip pain after his R leg got caught and straddled at work between 2 carts/platforms. He had immediate pain to his his R knee and hip. He has been unable to walk since that time. Reports that most of his painis in his right groin at this time. Imaging today revealed a subtle non-displaced R femoral neck fx. Past Medical History: denies Past Surgical History: denies Family History: family history is not on file. Reviewed and found to be non contributory to HPI/CC. Family or Personal History of DVT/PE?: denies Allergies: Allergies Allergen Reactions Penicillins Swelling Metal Allergy: No Social History: Tobacco: vapes daily Alcohol: denies Illicit substance use: denies Lives with in [place] Employment:works at [employer] ROS: A 14 point review of systems was conducted and was negative except aforementioned in the HPI, and if present the following systems listed below: Physical Exam: General:NAD Vitals: Visit Vitals BP 123/74 (BP Location: Left arm, Patient Position: Lying) Pulse 87 Temp 37.5 ??C (99.5 ??F) (Oral) Wt 98.9 kg (218 lb 0.6 oz) SpO2 96% Psych: AOx3, Appropriate mood and affect Eyes: EOMI, PERRLA, Sclera Anicteric HENMT: NCAT, mmm, good dentition GI: Soft, NT, No organomegaly Resp: Good effort, symmetrical chest rise CV: No evidence of lymphedema, Pulses as below. Skin: No palpable masses, No rashes or lesions, except specificaly mentioned below on each extremity Musculoskeletal Exam: Neck: Neck non tender to palpation, no step-off Chest: Clavicles non tender to palpation Spine: Cervical spine non tender to palpation, no step-off, Thoracic spine non tender to palpation, no step-off Lumbar spine non tender to palpation, no step-off Pelvis: stable to AP/Lat compression RUE: skin intact, no deformity, soft compartments, no pain with passive stretch, non tender to palpation ROM: Full/painless/stable at shoulder, elbow, and wrist Motor: 5/5 ER/IR, 5/5 Delt, 5/5 Bic, 5/5 Tri, 5/5 WF, 5/5 WE, 5/5 FF, 5/5 FE, 5/5 Fabd, 5/5 EPL, 5/5 FPL Sensory: Sensation intact to light touch axillary, radial, median, ulnar nn. Vascular: 2+ radial pulse, cap refill <2 sec LUE: skin intact, no deformity, soft compartments, no pain with passive stretch, non tender to palpation ROM: Full/painless/stable at shoulder, elbow, and wrist Motor: 5/5 ER/IR, 5/5 Delt, 5/5 Bic, 5/5 Tri, 5/5 WF, 5/5 WE, 5/5 FF, 5/5 FE, 5/5 Fabd, 5/5 EPL, 5/5 FPL Sensory: Sensation intact to light touch axillary, radial, median, ulnar nn. Vascular: 2+ radial pulse, cap refill <2 sec RLE: exam limited 2/2 pain, abrasion to medial aspect of proximal tibia and lateral aspect of hip/thigh ROM: Full/painless/stable at ankle Motor: 4/5 TA, 4/5 GSC, 4/5 EHL, 4/5 FHL, 4/5 Ever Sensory: Sensation intact to light touch deep peroneal, superficial peroneal, tibial, sural, saphenous nn. Vascular:2+ dorsalis pedis and posterior tibial pulse, cap refill <2 sec LLE: skin intact, no deformity, soft compartments, no pain with passive stretch, non tender to palpation ROM: Full/painless/stable at hip, knee, and ankle Motor: 5/5 HAbd, 5/5 HF, 5/5 KE, 5/5 KF, 5/5 TA, 5/5 GSC, 5/5 EHL, 5/5 FHL, 5/5 Ever Sensory: Sensation intact to light touch deep peroneal, superficial peroneal, tibial, sural, saphenous nn. Vascular: 2+ dorsalis pedis and posterior tibial pulse, cap refill <2 sec Labs: Labs in last 18 hours CBC WBC 13.72 (H) Hb 14.1 Plt 256 Hct 42.0 ANC 11.10 (H) INR 1.0, PTT ??, Anti-Xa ?? BMP Na 139 Cl 103 BUN 9 Glu 118 (H) K 3.7 Co2 26 Cr 0.84 Ca 8.9 iCa ?? Mg ??, Phos ?? Lactate ?? LFT AST 31 AlkPhos 84 T Prot 6.7 ALK 39 Bili 0.9 Alb ?? D.Bili ?? Imaging: Xrays of the following, reviewed and requested by me demonstrate the following: Radiology Results (Copy/paste from radiology report, as required): Right femoral neck fx Assessment: 47 yr old male with a R femoral neck fx Plan: -patient would benefit from operative fixation -will obtain MRI of hip to better evaluate fracture pattern -admit to Ortho -pain control -NWB RLE -FIB ordered -NPO at midnight Shea Le APRN Department of Orthopedic Surgery and Sports Medicine Consult Pager: [phone] Service Pager: [phone] Cosigned by Christofer Romano MD at 05/17/2023 11:53 AM EST Associated attestation - Christofer Romano MD - 05/17/2023 11:53 AM EST The patient was seen only by Advanced Practice Provider (ANN). * ED Provider Notes - Rut Torres MD - 05/13/2023 10:08 AM EST Images from the original note were not included. - HPI Chief Complaint Patient presents with Leg Injury Tre Blum is a 47 y.o. patient no significant PMHx who presents to the ED with complaints of hip pain. Pt fell at work and right leg was in between 2 platforms on Friday. Complaining of right hip pain. 100 fentanyl and 4 zofran in route. Unable to bear weight No data recorded Patient History History reviewed. No pertinent past medical history. History reviewed. No pertinent surgical history. No family history on file. Immunization History Immunization History: reviewed Allergies: Allergies Allergen Reactions Penicillins Swelling Review of Systems Review of Systems Constitutional: Negative for chills and fever. HENT: Negative for ear pain and sore throat. Eyes: Negative for pain and visual disturbance. Respiratory: Negative for cough and shortness of breath. Cardiovascular: Negative for chest pain and palpitations. Gastrointestinal: Negative for abdominal pain and vomiting. Genitourinary: Negative for dysuria and hematuria. Musculoskeletal: Positive for back pain and gait problem. Negative for arthralgias. Skin: Negative for color change and rash. Neurological: Negative for seizures and syncope. All other systems reviewed and are negative. Physical Exam ED Triage Vitals [05/13/23 1016] Temp Heart Rate Resp BP 37.3 ??C (99.1 ??F) 84 18 113/76 SpO2 Temp Source Heart Rate Source Patient Position 95 % Oral Monitor Lying BP Location FiO2 (%) Left arm -- Physical Exam Vitals reviewed. Constitutional: General: He is not in acute distress. Appearance: Normal appearance. He is not ill-appearing, toxic-appearing or diaphoretic. HENT: Head: Normocephalic and atraumatic. Right Ear: External ear normal. Left Ear: External ear normal. Nose: Nose normal. No congestion or rhinorrhea. Mouth/Throat: Lips: [place]. Mouth: Mucous membranes are moist. Eyes: General: Lids are normal. No scleral icterus. Right eye: No discharge. Left eye: No discharge. Extraocular Movements: Extraocular movements intact. Conjunctiva/sclera: Conjunctivae normal. Pupils: Pupils are equal, round, and reactive to light. Neck: Thyroid: No thyromegaly. Trachea: Trachea and phonation normal. Cardiovascular: Rate and Rhythm: Normal rate and regular rhythm. Pulses: Normal pulses. Heart sounds: Normal heart sounds. Pulmonary: Effort: Pulmonary effort is normal. No respiratory distress. Breath sounds: Normal breath sounds and air entry. No wheezing or rales. Chest: Chest wall: No tenderness. Abdominal: General: Abdomen is flat. There is no distension. Palpations: Abdomen is soft. There is no mass. Tenderness: There is no abdominal tenderness. There is no guarding or rebound. Hernia: No hernia is present. Musculoskeletal: General: Tenderness present. No swelling, deformity or signs of injury. Cervical back: Normal range of motion and neck supple. No rigidity. Right lower leg: No edema. Left lower leg: No edema. Comments: TTP to R hip Skin: General: Skin is warm and dry. Capillary Refill: Capillary refill takes less than 2 seconds. Coloration: Skin is not jaundiced or pale. Findings: No lesion or rash. Neurological: General: No focal deficit present. Mental Status: He is alert and oriented to person, place, and time. Mental status is at baseline. Cranial Nerves: No cranial nerve deficit. Sensory: Sensation is intact. No sensory deficit. Motor: Motor function is intact. No weakness. Gait: Gait is intact. Gait normal. Psychiatric: Attention and Perception: Attention normal. Mood and Affect: Mood and affect normal. Speech: Speech normal. Behavior: Behavior normal. Thought Content: Thought content normal. Judgment: Judgment normal. ED Course & MDM Clinical Impressions as of 03/05/24 1504 Pelvic straddle injury, initial encounter - Medical Decision Making Patient was seen and examined with Dr. Smart. In summary, Tre Blum is a 47 y.o. patient no significant PMHx who presents to the ED with complaints of hip pain. Pt fell at work and rightleg was in between 2 platforms on Friday. Complaining of right hip pain. 100 fentanyl and 4 zofran in route. Unable to bear weight. Patient was afebrile, hemodynamically stable, in no respiratory distress, and nontoxic in appearance upon arrival and throughout the entire stay in the ED. Physical examination was unremarkable aside from TTP to R hip, including lungs CTAB, normal cardiac auscultation, benign abdominal exam with no focal TTP, and no acute neurological deficit. The DDx includes, butis not limited to, acute osseous injury such as fracture or dislocation, acute ligamental or cartilaginous injury, muscle sprain vs strain, or other internal derangement. Given concern for an acute osseous injury based on physical examination, plain films were obtained of the injured extremity. X-ray/CT/US studies independently reviewed and interpreted by myself and notable for: - Pelvic XR: No acute osseous injuries. - Xrays of RLE were unremarkable for any signs of an acute fracture or osseous injury. - CT Bony Pelvis: negative for acute fracture Interventions/Medications Received in the ED: HYDROmorphone (Dilaudid) injection 0.5 mg (0.5 mg Intravenous Given 05/13/23 1208) ketorolac (Toradol) injection 15 mg (15 mg Intravenous Given 05/13/23 1445) Reassessment: On re-evaluation of patient, patient continued to have severe pain. Consults: At this time it was felt that the patient should be evaluated by ortho for possible admission. After I had an interactive discussion with the team, ortho felt the patient had an occult femoral neck fracture on CT and thus ortho assumed primary responsibility for patient care and agreed toadmit the patient to their service. IMPRESSION: Femur fracture DISPOSITION: Admit Rut Torres MD Emergency Medicine, PGY-3 ED Prescriptions Medication Sig Dispense Start Date End Date Auth. Provider oxyCODONE (Roxicodone) 5 MG immediate release tablet Take 1 tablet (5 mg) by mouth every 6 (six) hours if needed for severe pain (pain) for up to 3 days. 12 tablet 05/13/2023 05/16/2023 Rut Torres MD ketorolac (Toradol) 10 MG tablet Take 1 tablet (10 mg) by mouth every 6 (six) hours if needed for moderate pain. 20 tablet 05/13/2023 -- Rut Torres MD Discharge Instructions You were seen emergency department for evaluation of pelvic pain. At this time no further emergent workup is indicated. Please return to ED if your symptoms worsen, change in location, change in severity, new symptoms develop or if you become concerned for your health. It is important to follow-up with your primary care physician [facility] and let them know that you were seen in the emergency department today. Thank you. Disposition Admit Sign Off Checklist Clinical Impression: Complete ED Disposition: Complete - Rut Torres MD Resident 05/13/23 1504 Cosigned by Rodney Smart MD at 05/14/2023 6:05 AM EST Associated attestation - Rodney Smart MD - 05/14/2023 6:05 AM EST I saw and evaluated the patient with the resident/fellow. I discussed the case with the resident/fellow and agree with the findings and plan as documented. * ED Triage Notes - Fifi Kenny RN - 05/13/2023 10:08 AM EST Pt fell at work and right leg was in between 2 platforms on Friday. Complaining of right hip pain. 100 fentanyl and 4 zofran in route. Unable to bear weight and was seen at [facility] clinic, transferred toED via [facility] documented in this encounter Plan of Treatment Not on file documented as of this encounter Procedures Procedure Name Priority Date/Time Associated Diagnosis Comments BODY FLUID, CYTOSPIN, PATHOLOGIST INTERPRETATION STAT 05/15/2023 1:00 PM EST PROTHROMBIN TIME(PT) / INR Routine 05/15/2023 12:29 AM EST CBC W/O DIFFERENTIAL Routine 05/15/2023 12:29 AM EST BASIC METABOLIC PANEL, PLASMA Routine 05/15/2023 12:29 AM EST BODY FLUID CELL COUNT W/ MANUAL DIFFERENTIAL STAT 05/14/2023 10:58 PM EST JOINT FLUID CRYSTALS STAT 05/14/2023 10:33 PM EST FL LESS THAN 1 HOUR (NON-REPORTABLE) STAT 05/14/2023 7:42 PM EST JOINT INFECTION PANEL BY PCR STAT 05/14/2023 7:38 PM EST BODY FLUID CULTURE AND GRAM STAIN STAT 05/14/2023 7:38 PM EST C-REACTIVE PROTEIN, PLASMA Routine 05/14/2023 5:57 AM EST SEDIMENTATION RATE, AUTOMATED Routine 05/14/2023 4:25 AM EST MR PELVIS WO IV CONTRAST STAT 05/14/2023 2:12 AM EST PROTHROMBIN TIME(PT) / INR Routine 05/14/2023 12:19 AM EST CBC W/O DIFFERENTIAL Routine 05/14/2023 12:19 AM EST BASIC METABOLIC PANEL, PLASMA Routine 05/14/2023 12:19 AM EST TYPE AND SCREEN Routine 05/13/2023 4:48 PM EST HEMOGLOBIN A1C Routine 05/13/2023 4:48 PM EST XR CHEST 1 VIEW STAT 05/13/2023 4:39 PM EST XR HIP RIGHT 2 OR 3 VIEWS STAT 05/13/2023 4:39 PM EST ECG ADULT STAT 05/13/2023 3:12 PM EST ED HIV 1/2 ANTIBODY/ANTIGEN SCREEN WITH REFLEX TO HIV I/II DIFFERENTIATION STAT 05/13/2023 3:08 PM EST ED PROTOCOL HIV 1/2 ANTIBODY/ANTIGEN SCREEN W/REFLEX TO HIV 1/2 ANTIBODY DIFFERENTIATION STAT 05/13/2023 3:08 PM EST HEPATITIS C ANTIBODY - ED W/REFLEX TO HCV QUANT PCR STAT 05/13/2023 3:08 PM EST PROTHROMBIN TIME(PT) / INR STAT 05/13/2023 3:08 PM EST CBC WITH AUTO DIFFERENTIAL STAT 05/13/2023 3:08 PM EST COMPREHENSIVE METABOLIC PANEL, PLASMA STAT 05/13/2023 3:[address] BONY PELVIS STAT 05/13/2023 12:50 PM EST XR PELVIS 1 OR 2 VIEWS STAT 11:36 AM EST XR KNEE RIGHT 3 VIEWS STAT 05/13/2023 11:36 AM EST XR FEMUR RIGHT 2+ VIEWS STAT 05/13/19 11:36 AM EST documented in this encounter Results * Body fluid, cytospin, pathologist interpretation (05/15/2023 1:00 PM EST) Specimen Type Joint Fluid 05/15/2023 1:00 PM EST [facility] Specimen Source, Body Fluid Synovial Fluid (type in source) 05/15/2023 1:00 PM EST [facility] Clinical Diagnosis, Body Fluid Right hip pain 05/15/2023 1:00 PM EST [facility] Interpretation, Body Fluid Abundant acute inflammation. A resident was involved in the service. I attest I examined the relevant preparations for the specimens and confirmed the diagnosis or interpretation. 05/15/2023 1:00 PM EST [facility] Pathologist Signature, Body Fluid 05/15/2023 1:00 PM EST [facility] Comment:Reviewed by: Thai Del Toro MD LAB CP ASR DISCLAIMER Yes 05/15/2023 1:00 PM EST [facility] Joint Fluid Synovial structure / Unknown 05/14/2023 8:27 PM EST us Arturo Hernandez MD LAB BODY FLUIDS AND STOOL S ORDERABLES Final Result Performing Organization Address City/State/[facility] Co de Phone Number [facility] [address] [place] [address] * Protime-INR (05/15/2023 12:29 AM EST) Prothrombin Time 13.5 12.0 - 14.3 sec LAB COAGULATION METHOD 05/15/2023 12:57 AM EST [facility] INR 1.0 0.9 - 1.1 LAB COAGULATION METHOD 05/15/2023 12:57 AM EST [facility] Blood Venous blood specimen / Unknown Venipuncture / Unknown 05/15/2023 12:29 AM EST 05/15/2023 12:36 AM EST Narrative [facility] - 05/15/2023 12:57 AM EST OPTIMAL INR RANGES FOR PATIENT ON ORAL ANTICOAGULANT THERAPY Prevention of venous thromboembolism ?INR 2.0 to 3.0 In patients with heart disease: Atrial fibrillation ?INR 2.0 to 3.0 Valvular heart disease ? INR 2.0 to 3.0 Tissue heart valves ?INR 2.0 to 3.0 Mechanical prosthetic valves ? INR 2.5 to 3.5 Prevention of recurrent MA ? INR 2.5 to 3.5 Christofer Romano MD LAB BLOOD ORDERABLES Final R esult [facility] [address] [place] [address] * (ABNORMAL) Basic metabolic panel (05/15/2023 12:29 AM EST) Glucose, Plasma 207(H) 74 - 99 mg/dL 05/15/2023 1:07 AM EST [facility] BUN, Plasma 9 7 - 21 mg/dL 05/15/2023 1:07 AM EST [facility] Creatinine, Plasma 0.74(L) 0.80 - 1.30 mg/dL 05/15/2023 1:07 AM EST [facility] BUN/Creatinine Ratio 12 05/15/2023 1:07 AM EST [facility] Sodium, Plasma 139 136 - 145 mmol/L 05/15/2023 1:07 AM EST [facility] Potassium, Plasma 3.8 3.7 - 4.8 mmol/L 05/15/2023 1:07 AM EST [facility] Chloride, Plasma 105 97 - 107 mmol/L 05/15/2023 1:07 AM EST [facility] CO2, Plasma 24 22 - 29 mmol/L 05/15/2023 1:07 AM EST [facility] Anion Gap 10 6 - 16 mmol/L 05/15/2023 1:07 AM EST [facility] Total Calcium, Plasma 9.5 8.9 - 10.2 mg/dL 05/15/2023 1:07 AM EST [facility] eGFRcr 113.9 mL/min/1.7 3m*2 05/15/2023 1:07 AM EST [facility] Comment:Reported eGFRcr in m L/min/1.73m2 is based the CKD-EPI 2020 equation that does not use a race coefficient. Blood Venous blood specimen / Unknown Venipuncture / Unknown 05/15/2023 12:29 AM EST 05/15/2023 12:36 AM EST Christofer Romano MD LAB BLOOD ORDERABLES Final R esult [facility] [address] [place] [address] * (ABNORMAL) CBC W/O Differential (05/15/2023 12:29 AM EST) WBC Count 12.62(H) 3.70 - 10.30 10*3/uL LAB HEMATOLOGY METHOD 05/15/2023 12:44 AM EST [facility] RBC Count 5.15 4.60 - 6.10 10*6/uL LAB HEMATOLOGY METHOD 05/15/2023 12:44 AM EST [facility] HGB 13.8 13.7 - 17.5 g/dL LAB HEMATOLOGY METHOD 05/15/2023 12:44 AM EST [facility] HCT 42.1 40.0 - 51.0 % LAB HEMATOLOGY METHOD 05/15/2023 12:44 AM EST [facility] Platelet Count 239 155 - 369 10*3/uL LAB HEMATOLOGY METHOD 05/15/2023 12:44 AM EST [facility] MCV 82 79 - 98 fL LAB HEMATOLOGY METHOD 05/15/2023 12:44 AM EST [facility] MCH 26.8 26.0 - 32.0 pg LAB HEMATOLOGY METHOD 05/15/2023 12:44 AM EST [facility] MCHC 32.8 30.7 - 35.5 g/dL LAB HEMATOLOGY METHOD 05/15/2023 12:44 AM EST [facility] RDW 13.1 11.5 - 14.5 % LAB HEMATOLOGY METHOD 05/15/2023 12:44 AM EST [facility] MPV 9.1 8.8 - 12.5 fL LAB HEMATOLOGY METHOD 05/15/2023 12:44 AM EST [facility] nRBC 0.0 <=0.0 per 100 WBCs LAB HEMATOLOGY METHOD 05/15/2023 12:44 AM EST [facility] Blood Venous blood specimen / Unknown Venipuncture / Unknown 05/15/2023 12:29 AM EST 05/15/2023 12:36 AM EST us Christofer Romano MD LAB BLOOD ORDERABLES Final R esult [facility] [address] [place] [address] * (ABNORMAL) Body Fluid Cell Count w/ Diff (05/14/2023 10:58 PM EST) Color, Body fluid Yellow LAB HEMATOLOGY METHOD 05/14/2023 10:58 PM [facility] Appearance, Body fluid Cloudy(A) LAB HEMATOLOGY METHOD 05/14/2023 10:58 PM [facility] Volume, Body fluid 2.5 cc LAB HEMATOLOGY METHOD 05/14/2023 10:58 PM [facility] Fluid Container SPECIMEN RECEIVED IN EDTA TUBE LAB HEMATOLOGY METHOD 05/14/2023 10:58 PM [facility] Red Blood Cell Count, Body fluid 0 uL LAB HEMATOLOGY METHOD 05/14/2023 10:58 PM [facility] Total Nucleated Cell Count, Body fluid 53,170 uL LAB HEMATOLOGY METHOD 05/14/2023 10:58 PM [facility] Neutrophils %, Body fluid 90 % LAB HEMATOLOGY METHOD 05/14/2023 10:58 PM [facility] Lymphocytes %, Body fluid 1 % LAB HEMATOLOGY METHOD 05/14/2023 10:58 PM [facility] Monocytes/Macro phages %, Body fluid 9 % LAB HEMATOLOGY METHOD 05/14/2023 10:58 PM [facility] Eosinophils %, Body fluid 0 % LAB HEMATOLOGY METHOD 05/14/2023 10:58 PM [facility] Basophils %, Body fluid 0 % LAB HEMATOLOGY METHOD 05/14/2023 10:58 PM [facility] Lining/Mesothel ial Cells %, Body fluid 0 % LAB HEMATOLOGY METHOD 05/14/2023 10:58 PM [facility] Neutrophils Absolute (PMN), Body fluid 47,853 uL LAB HEMATOLOGY METHOD 05/14/2023 10:58 PM [facility] Lymphocytes Absolute, Body fluid 532 uL LAB HEMATOLOGY METHOD 05/14/2023 10:58 PM [facility] Monocytes/Macro phages Absolute, Body fluid 4,785 uL LAB HEMATOLOGY METHOD 05/14/2023 10:58 PM [facility] Eosinophils Absolute, Body fluid 0 uL LAB HEMATOLOGY METHOD 05/14/2023 10:58 PM [facility] Basophils Absolute, Body fluid 0 uL LAB HEMATOLOGY METHOD 05/14/2023 10:58 PM [facility] Lining/Mesothel ial Cells Absolute, Body fluid 0 uL LAB HEMATOLOGY METHOD 05/14/2023 10:58 PM [facility] Comment, Body fluid NONE LAB HEMATOLOGY METHOD 05/14/2023 10:58 PM [facility] Comment:This is an appended report. These results have been appended to a previously preliminary verified report. Joint Fluid Synovial structure / Unknown 05/14/2023 8:27 PM EST Result Lily Hernandez MD LAB BODY FLUIDS A ND STOOLS ORDERABLES NO SPECIMEN TYPE/SOURCE Final Result Performing Organization Address [facility] de Phone Number [facility] [address] [place] [address] * Joint Fluid Crystals (05/14/2023 10:33 PM EST) Crystals, Joint Fluid No Crystals Seen No Crystals Present 05/14/2023 10:33 PM EST [facility] Joint Fluid Right hip region structure / Unknown 05/14/2023 8:29 PM EST us Arturo Hernandez MD LAB BODY FLUIDS AND STOOL S ORDERABLES Final Result Performing Organization Address [facility] de Phone Number [facility] [address] [place] [address] * FL Less than 1 Hour Intraoperative (05/14/2023 7:42 PM EST) Narrative IMAGING - 05/20/2023 8:06 AM EDT Images were obtained for surgical purposes. ??See William Alejandro's surgical note in the patient's chart for the findings. Result Lily Hernandez MD IMG FLUOROSCOPY PROCEDURE S Final Result Performing Organization Address [facility] de Phone Number IMAGING * Joint Infection Panel by PCR (05/14/2023 7:38 PM EST) Joint Infection Panel PCR Result Not Detected for all analytes Not Detected for all analytes 05/14/2023 9:17 PM EST [facility] Joint Fluid Synovial fluid specimen / Unknown Non-blood Collection / Unknown 05/14/2023 7:38 PM EST 05/14/2023 7:39 PM EST Narrative [facility] - 05/14/2023 9:17 PM EST This assay can detect: Anaerococcus prevotii/vaginalis, Clostridium perfringens, Cutibacterium avidum/granulosum, Enterococcus faecalis, Enterococcus faecium, Finegoldia magna, Parviomonas micra, Peptoniphilus, Peptostreptococcus anaerobius, Staphylococcus aureus, Staphylococcus lugdunensis, Streptococcus spp., Streptococcus agalactiae, Streptococcus pneumoniae, Streptococcus pyogenes, Bacteroides fragilis, Citrobacter, Enterobacter cloacae complex, Escherichia coli, Haemophilus influenzae, Kingella kingae, Klebsiella aerogenes, Klebsiella pneumoniae group, Morganella morganii, Neisseria gonorrhoeae, Proteus spp. Pseudomonas aeruginosa, Salmonella spp., Serratia marcescens, Alexandra, Alexandra albicans and CTX-M, IMP, KPC, mecA/C and MREJ (MRSA), NDM, OXA-48-like, Mauricio/B and VIM resistance genes. Note: Antimicrobial resistance can occur via multiple mechanisms. A Not Detected result for a genetic marker of antimicrobial resistance does not indicate susceptibility to associated antimicrobial drugs or drug classes. A Detected result for a genetic marker of antimicrobial resistance cannot be definitively linked to the microorganism(s) detected. Culture is required to obtain isolates for antimicrobial susceptibility testing and Vaddio Joint Infection Panel results should be used in conjunction with culture results for the determination of susceptibility or resistance. Arturo Hernandez MD LAB MICROBIOLOGY - Advanced Brain Monitoring L ORDERABLES Final Result Performing Organization Address [facility] Co de Phone Number [facility] [address] [place] [address] * Body Fluid Culture and Gram Stain (05/14/2023 7:38 PM EST) Culture No growth at day 4 2023 2:54 PM EST [facility] Gram Stain Result Numerous Polymorphonuclear leukocytes 05/17/2023 2:54 PM EST [facility] Gram Stain Result No organisms seen 05/17/2023 2:54 PM EST [facility] Joint Fluid Synovial fluid specimen / Unknown Non-blood Collection / Unknown 05/14/2023 7:38 PM EST 05/14/2023 7:39 PM EST Arturo Hernandez MD LAB MICROBIOLOGY - GENERA L ORDERABLES Final Result Performing Organization Address [facility] Co de Phone Number [facility] [address] [place] [address] * (ABNORMAL) C-reactive protein (05/14/2023 5:57 AM EST) CRP, Plasma 105.5(H) <=8.0 mg/L 05/14/2023 6:46 AM EST [facility] Blood Venous blood specimen / Unknown Venipuncture / Unknown 05/14/2023 5:57 AM EST 05/14/2023 6:13 AM EST Narrative [facility] - 05/14/2023 6:46 AM EST This CRP test is appropriate for assessment of infection, systemic inflammation and/or tissue injury. To assess cardiovascular disease risk order high sensitivity CRP (CRPH). us Christofer Romano MD LAB BLOOD ORDERABLES Final R esult Performing Organization Address City/[facility]/ZIP Co de Phone Number [facility] [address] [place] [address] * Sedimentation Rate, Automated (05/14/2023 4:25 AM EST) Sedimentation Rate 4 <15 mm/hr 2023 4:41 AM EST [facility] Blood Venous blood specimen / Unknown Venipuncture / Unknown 05/14/2023 4:25 AM EST 05/14/2023 4:32 AM EST us Christofer Romano MD LAB BLOOD ORDERABLES Final R esult Performing Organization Address City/[facility]/ZIP Co de Phone Number [facility] [address] [place] [address] * MR Pelvis wo IV Contrast (05/14/2023 2:12 AM EST) Anatomical Region Laterality Modality Abdomen Magnetic Resonan ce Impressions 05/14/2023 7:52 AM EST There is small to moderate joint effusion the right hip. There is edema of the anterior capsule of the right hip and adjacent soft tissue structures with suspected small tear of the capsule laterally. These findings are most consistent with posttraumatic changes. Edema of the right sartorius muscle. Findings are most consistent with strain. CRITICAL RESULT: ?? No. COMMUNICATION: Per this written report. Drafted by Guerreroreinier Beyer MD on 05/14/2023 7:46 AM Final report signed by Guerrero Beyer MD on 05/14/2023 7:52 AM Narrative 05/14/2023 7:52 AM EST CLINICAL INDICATION: eval for right femoral neck fx TECHNIQUE: Coronal STIR, coronal T1, axial T1, axial T2 fat saturation, sagittal proton density, sagittal T2 fat saturation. COMPARISON: May 13, 2003. FINDINGS: ?? Bone and Bone Marrow: There is no fracture, AVN, or intraosseous lesion. The marrow signal is within normal limits. Tendons: There is no tendon tear or tenosynovitis. Sciatic Nerves: The sciatic nerves are normal in signal and course with no evidence of inflammation. Soft Tissues: There is small to moderate joint effusion the right hip. There is edema of the anterior capsule of the right hip and adjacent soft tissue structures with suspected small tear of the capsule laterally. Edema of the right sartorius muscle. Solid and Tubular Organs of the Pelvis: There is no evidence of diverticulitis. ??There is no pathologic volume of fluid within the pelvis. Procedure Note Guerrero Lainez MD - 05/14/2023 CLINICAL INDICATION: eval for right femoral neck fx TECHNIQUE: Coronal STIR, coronal T1, axial T1, axial T2 fat saturation, sagittalproton density, sagittal T2 fat saturation. COMPARISON: May 13, 2003. FINDINGS: Bone and Bone Marrow: There is no fracture, AVN, or intraosseous lesion.The marrow signal is within normal limits. Tendons: There is no tendon tear or tenosynovitis. Sciatic Nerves: The sciatic nerves are normal in signal and course with noevidence of inflammation. Soft Tissues: There is small to moderate joint effusion the right hip.There is edema of the anterior capsule of the right hip and adjacent softtissue structures with suspected small tear of the capsule laterally.Edema of the right sartorius muscle. Solid and Tubular Organs of the Pelvis: There is no evidence ofdiverticulitis. There is no pathologic volume of fluid within thepelvis. IMPRESSION: There is small to moderate joint effusion the right hip. There is edema of the anterior capsule of the right hip and adjacent softtissue structures with suspected small tear of the capsule laterally.These findings are most consistent with posttraumatic changes. Edema of the right sartorius muscle. Findings are most consistent withstrain. CRITICAL RESULT: No. COMMUNICATION: Per this written report. Drafted by Guerrero Beyer MD on 05/14/2023 7:46 AM Final report signed by Guerrero Beyer MD on 47:52 AM Christofer Romano MD IMG MRI PROCEDURES Final Res ult * Protime-INR (05/14/2023 12:19 AM EST) Prothrombin Time 12.7 12.0 - 14.3 sec LAB COAGULATION METHOD 05/14/2023 1:06 AM EST [facility] INR 1.0 0.9 - 1.1 LAB COAGULATION METHOD 05/14/2023 1:06 AM EST [facility] Blood Venous blood specimen / Unknown Venipuncture / Unknown 05/14/2023 12:19 AM EST 05/14/2023 12:39 AM EST Narrative [facility] - 05/14/2023 1:06 AM EST OPTIMAL INR RANGES FOR PATIENT ON ORAL ANTICOAGULANT THERAPY Prevention of venous thromboembolism ?INR 2.0 to 3.0 In patients with heart disease: Atrial fibrillation ?INR 2.0 to 3.0 Valvular heart disease ? INR 2.0 to 3.0 Tissue heart valves ?INR 2.0 to 3.0 Mechanical prosthetic valves ? INR 2.5 to 3.5 Prevention of recurrent MA ? INR 2.5 to 3.5 us Christofer Romano MD LAB BLOOD ORDERABLES Final R esult [facility] [address] [place] [address] * (ABNORMAL) Basic metabolic panel (05/14/2023 12:19 AM EST) Glucose, Plasma 126(H) 74 - 99 mg/dL 05/14/2023 1:07 AM EST [facility] BUN, Plasma 13 7 - 21 mg/dL 05/14/2023 1:07 AM [facility] Creatinine, Plasma 0.98 0.80 - 1.30 mg/dL 05/14/2023 1:07 AM EST [facility] BUN/Creatinine Ratio 13 05/14/2023 1:07 AM [facility] Sodium, Plasma 137 136 - 145 mmol/L 05/14/2023 1:07 AM [facility] Potassium, Plasma 3.8 3.7 - 4.8 mmol/L 05/14/2023 1:07 AM [facility] Chloride, Plasma 101 97 - 107 mmol/L 05/14/2023 1:07 AM [facility] CO2, Plasma 24 22 - 29 mmol/L 05/14/2023 1:07 AM [facility] Anion Gap 12 6 - 16 mmol/L 05/14/2023 1:07 AM [facility] Total Calcium, Plasma 9.2 8.9 - 10.2 mg/dL 05/14/2023 1:07 AM [facility] eGFRcr 96.9 mL/min/1.7 3m*2 05/14/2023 1:07 AM [facility] Comment:Reported eGFRcr in m L/min/1.73m2 is based the CKD-EPI 2020 equation that does not use a race coefficient. Blood Venous blood specimen / Unknown Venipuncture / Unknown 05/14/2023 12:19 AM EST 05/14/2023 12:38 AM EST us Christofer Romano MD LAB BLOOD ORDERABLES Final R esult [facility] [address] [place] [address] * (ABNORMAL) CBC W/O Differential (05/14/2023 12:19 AM EST) WBC Count 13.27(H) 3.70 - 10.30 10*3/uL LAB HEMATOLOGY METHOD 05/14/2023 12:48 AM EST [facility] RBC Count 5.20 4.60 - 6.10 10*6/uL LAB HEMATOLOGY METHOD 05/14/2023 12:48 AM EST [facility] HGB 14.4 13.7 - 17.5 g/dL LAB HEMATOLOGY METHOD 05/14/2023 12:48 AM EST [facility] HCT 43.2 40.0 - 51.0 % LAB HEMATOLOGY METHOD 05/14/2023 12:48 AM EST [facility] Platelet Count 277 155 - 369 10*3/uL LAB HEMATOLOGY METHOD 05/14/2023 12:48 AM EST [facility] MCV 83 79 - 98 fL LAB HEMATOLOGY METHOD 05/14/2023 12:48 AM EST [facility] MCH 27.7 26.0 - 32.0 pg LAB HEMATOLOGY METHOD 05/14/2023 12:48 AM EST [facility] MCHC 33.3 30.7 - 35.5 g/dL LAB HEMATOLOGY METHOD 05/14/2023 12:48 AM EST [facility] RDW 12.9 11.5 - 14.5 % LAB HEMATOLOGY METHOD 05/14/2023 12:48 AM EST [facility] MPV 9.3 8.8 - 12.5 fL LAB HEMATOLOGY METHOD 05/14/2023 12:48 AM EST [facility] nRBC 0.0 <=0.0 per 100 WBCs LAB HEMATOLOGY METHOD 05/14/2023 12:48 AM EST [facility] Blood Venous blood specimen / Unknown Venipuncture / Unknown 05/14/2023 12:19 AM EST 05/14/2023 12:41 AM EST us Christofer Romano MD LAB BLOOD ORDERABLES Final R esult Performing Organization Address City/State/[facility] Co de Phone Number [facility] [address] [place] [address] * Type and screen (05/13/2023 4:48 PM EST) ABO/Rh O Negative 05/13/2023 4:25 PM EST [facility] Antibody Screen Negative 05/13/2023 4:25 PM EST [facility] Specimen Expiration 05/16/2023 23:59 05/13/2023 4:25 PM EST [facility] Blood Venous blood specimen / Unknown Venipuncture / Unknown 05/13/2023 4:48 PM EST 05/13/2023 4:51 PM EST us Christofer Romano MD LAB BLOOD BANK TEST ORDERABL ES Final Result Performing Organization Address [facility] Co de Phone Number BLOOD BANK [address] * Hemoglobin A1c (05/13/2023 4:48 PM EST) Hemoglobin A1c 5.5 <5.7 % 05/13/2023 5:46 PM EST [facility] Blood Venous blood specimen / Unknown Venipuncture / Unknown 05/13/2023 4:48 PM EST 05/13/2023 5:19 PM EST Narrative [facility] - 05/13/2023 5:46 PM EST HA1C Interpretive Data: Diagnosis of Diabetes: Diabetic > or = 6.5% Pre-diabetic 5.7 to 6.4% Non-diabetic < or = 5.6% Glycemic Targets for Type I and Type II Diabetics: Non- Adults <7.0% Adults <6.0% Children and Adolescents <7.5% Source: ??[place] [employer]. Standards of medical care in diabetes,2017. Diabetes Care.2017:40 (suppl 1):S1-S135. HbA1c assay performed by an ion-exchange chromatography method that is certified traceable to the DCCT. us Shea Le APRN LAB BLOOD ORDERABLES Final Result Performing Organization Address City/[facility] Co de Phone Number [facility] [address] [place] [address] * XR Hip Right 2 or 3 Views (05/13/2023 4:39 PM EST) Anatomical Region Laterality Modality Lower Extremities, Hip Right Digital R adiography Impressions 05/13/2023 5:20 PM EST No acute displaced fracture. If there is concerning for occult fracture, MRI is recommended. CRITICAL RESULT: ?? No. COMMUNICATION: Per this written report. Drafted by Guerrero Beyer MD on 05/13/2023 5:18 PM Final report signed by Guerrero Beyer MD on 05/13/2023 5:20 PM Narrative 05/13/2023 5:20 PM EST CLINICAL INDICATION: femoral neck fx TECHNIQUE: XR HIP RIGHT 2 OR 3 VIEWS COMPARISON: None. FINDINGS: No acute displaced fracture or dislocation. Mild osteoarthritis of the hip. Procedure Note Guerrero Lainez MD - 05/13/2023 CLINICAL INDICATION: femoral neck fx TECHNIQUE: XR HIP RIGHT 2 OR 3 VIEWS COMPARISON: None. FINDINGS: No acute displaced fracture or dislocation. Mild osteoarthritis of thehip. IMPRESSION: No acute displaced fracture. If there is concerning for occult fracture,MRI is recommended. CRITICAL RESULT: No. COMMUNICATION: Per this written report. Drafted by Guerrero Beyer MD on 05/13/2023 5:18 PM Final report signed by Guerrero Beyer MD on 45:20 PM us [address] BU[employer]DER IMG XR PROCEDURES Final Re sult * XR Chest 1 View (05/13/2023 4:39 PM EST) Anatomical Region Laterality Modality Chest Digital Radiogra phy Impressions 05/13/2023 5:27 PM EST No acute finding CRITICAL RESULT: ?? No. COMMUNICATION: Per this written report. Drafted by Jordy Arenas MD on 05/13/2023 5:26 PM Final report signed by Jordy Arenas MD on 05/13/2023 5:27 PM Narrative 05/13/2023 5:27 PM EST CLINICAL INDICATION: Trauma evaluation TECHNIQUE: XR CHEST 1 VIEW COMPARISON: None. FINDINGS: Lungs are clear. Heart and mediastinal contours are within normal limits. No pneumothorax. ??No pleural effusion. Bony structures are unremarkable. Old left fifth rib fracture. Procedure Note Jordy Arenas MD - 05/13/2023 CLINICAL INDICATION: Trauma evaluation TECHNIQUE: XR CHEST 1 VIEW COMPARISON: None. FINDINGS: Lungs are clear. Heart and mediastinal contours are within normal limits.No pneumothorax. No pleural effusion. Bony structures are unremarkable.Old left fifth rib fracture. IMPRESSION: No acute finding CRITICAL RESULT: No. COMMUNICATION: Per this written report. Drafted by Jordy Arenas MD on 05/13/2023 5:26 PM Final report signed by Jordy Arenas MD on 05/13/2023 5:27 PM us Rodney Smart MD IMG XR PROCEDURES Final Res ult * EKG now - STAT (adult) (05/13/2023 3:12 PM EST) EKG DIAGNOSIS CLASS Abnormal MUSE ECG Ventricular Rate 88 BPM MUSE ECG Atrial Rate 88 BPM MUSE ECG RI Interval 166 ms MUSE ECG QRSD Interval 88 ms MUSE ECG QT Interval 340 ms MUSE ECG QTC Interval 411 ms MUSE ECG P [place] 30 degrees MUSE ECG R [place] 20 degrees MUSE ECG T Wave [place] 7 degrees MUSE ECG Diagnosis Normal sinus rhythm MUSE ECG Diagnosis Nonspecific T wave abnormality MUSE ECG Diagnosis Abnormal ECG MUSE ECG Diagnosis Confirmed by Santos Thorpe ([id number]) on 05/13/2023 4:34:20 PM MUSE ECG 05/13/2023 3:12 PM EST 05/13/2023 4:34 PM EST us Rodney Smart MD ECG ORDERABLES Final Resul t MUSE ECG * ED HIV 1/2 Antibody/Antigen Screen w/Reflex to HIV 1/2 Differentiation (05/13/2023 3:08 PM EST) Pathologist [facility] HIV 1 & 2 Antibody/Antigen Screen Non Reactive Non Reactive 05/13/2023 4:22 PM EST [facility] Comment:Screening for HIV 1 & 2 antibodies, and P24 antigen is NONREACTIVE. No confirmatory testing is required. Blood Venous blood specimen / Unknown Venipuncture / Unknown 05/13/2023 3:08 PM EST 05/13/2023 3:25 PM EST us Rodney Smart MD LAB BLOOD ORDERABLES Final Result [facility] [address] [place] [address] * Hepatitis C Antibody - ED (05/13/2023 3:08 PM EST) Pathologist [facility] Hepatitis C Antibody Negative Negative 05/13/2023 4:22 PM EST [facility] Blood Venous blood specimen / Unknown Venipuncture / Unknown 05/13/2023 3:08 PM EST 05/13/2023 3:24 PM EST Rodney Smart MD LAB BLOOD ORDERABLES Final Result Performing Organization Address City/State/[facility] Phone Number [facility] [address] [place] [address] * (ABNORMAL) CMP (05/13/2023 3:08 PM EST) Pathologist [facility] Glucose, Plasma 118(H) 74 - 99 mg/dL 05/13/2023 3:50 PM EST [facility] BUN, Plasma 9 7 - 21 mg/dL 05/13/2023 3:50 PM EST [facility] Creatinine, Plasma 0.84 0.80 - 1.30 mg/dL 05/13/2023 3:50 PM EST [facility] BUN/Creatinine Ratio 11 05/13/2023 3:50 PM EST [facility] Sodium, Plasma 139 136 - 145 mmol/L 05/13/2023 3:50 PM EST [facility] Potassium, Plasma 3.7 3.7 - 4.8 mmol/L 05/13/2023 3:50 PM EST [facility] Chloride, Plasma 103 97 - 107 mmol/L 05/13/2023 3:50 PM EST [facility] CO2, Plasma 26 22 - 29 mmol/L 05/13/2023 3:50 PM EST [facility] Anion Gap 10 6 - 16 mmol/L 05/13/2023 3:50 PM EST [facility] Total Calcium, Plasma 8.9 8.9 - 10.2 mg/dL 05/13/2023 3:50 PM EST [facility] Total Protein 6.7 6.3 - 7.9 g/dL 05/13/2023 3:50 PM EST [facility] Albumin, Plasma 4.1 3.5 - 5.2 g/dL 05/13/2023 3:50 PM EST [facility] AST, Plasma 31 10 - 50 U/L 05/13/2023 3:50 PM EST [facility] ALT, Plasma 39 10 - 50 U/L 05/13/2023 3:50 PM EST [facility] Alkaline Phosphatase, Plasma 84 40 - 115 U/L 05/13/2023 3:50 PM EST [facility] Total Bilirubin, Plasma 0.9 0.2 - 1.1 mg/dL 05/13/2023 3:50 PM EST [facility] eGFRcr 109.6 mL/min/1.7 3m*2 05/13/2023 3:50 PM EST [facility] Comment:Reported eGFRcr in m L/min/1.73m2 is based the CKD-EPI 2020 equation that does not use a race coefficient. Blood Venous blood specimen / Unknown Venipuncture / Unknown 05/13/2023 3:08 PM EST 05/13/2023 3:12 PM EST us Rodney Smart MD LAB BLOOD ORDERABLES Final Result Performing Organization Address City/State/[facility] Co de Phone Number [facility] [address] [place] [address] * PT-INR (05/13/2023 3:08 PM EST) Pathologist [facility] Prothrombin Time 13.1 12.0 - 14.3 sec 05/13/2023 3:25 PM EST [facility] INR 1.0 0.9 - 1.1 05/13/2023 3:25 PM EST [facility] Blood Venous blood specimen / Unknown Venipuncture / Unknown 05/13/2023 3:08 PM EST 05/13/2023 3:12 PM EST Narrative [facility] - 05/13/2023 3:25 PM EST OPTIMAL INR RANGES FOR PATIENT ON ORAL ANTICOAGULANT THERAPY Prevention of venous thromboembolism ?INR 2.0 to 3.0 In patients with heart disease: Atrial fibrillation ?INR 2.0 to 3.0 Valvular heart disease ? INR 2.0 to 3.0 Tissue heart valves ?INR 2.0 to 3.0 Mechanical prosthetic valves ? INR 2.5 to 3.5 Prevention of recurrent MA ? INR 2.5 to 3.5 us Rodney Smart MD LAB BLOOD ORDERABLES Final Result [facility] [address] [place] [address] * (ABNORMAL) CBC w/diff (05/13/2023 3:08 PM EST) WBC Count 13.72(H) 3.70 - 10.30 10*3/uL LAB HEMATOLOGY METHOD 05/13/2023 3:15 PM EST [facility] RBC Count 5.17 4.60 - 6.10 10*6/uL LAB HEMATOLOGY METHOD 05/13/2023 3:15 PM EST [facility] HGB 14.1 13.7 - 17.5 g/dL LAB HEMATOLOGY METHOD 05/13/2023 3:15 PM EST [facility] HCT 42.0 40.0 - 51.0 % LAB HEMATOLOGY METHOD 05/13/2023 3:15 PM EST [facility] Platelet Count 256 155 - 369 10*3/uL LAB HEMATOLOGY METHOD 05/13/2023 3:15 PM EST [facility] MCV 81 79 - 98 fL LAB HEMATOLOGY METHOD 05/13/2023 3:15 PM EST [facility] MCH 27.3 26.0 - 32.0 pg LAB HEMATOLOGY METHOD 05/13/2023 3:15 PM EST [facility] MCHC 33.6 30.7 - 35.5 g/dL LAB HEMATOLOGY METHOD 05/13/2023 3:15 PM EST [facility] RDW 12.9 11.5 - 14.5 % LAB HEMATOLOGY METHOD 05/13/2023 3:15 PM EST [facility] MPV 9.1 8.8 - 12.5 fL LAB HEMATOLOGY METHOD 05/13/2023 3:15 PM EST [facility] nRBC 0.0 <=0.0 per 100 WBCs LAB HEMATOLOGY METHOD 05/13/2023 3:15 PM EST [facility] Differential Type Automated LAB HEMATOLOGY METHOD 05/13/2023 3:15 PM EST [facility] Neutrophils % 81.0 % LAB HEMATOLOGY METHOD 05/13/2023 3:15 PM EST [facility] Lymphocytes % 10.0 % LAB HEMATOLOGY METHOD 05/13/2023 3:15 PM EST [facility] Monocytes % 8.0 % LAB HEMATOLOGY METHOD 05/13/2023 3:15 PM EST [facility] Eosinophils % 1.0 % LAB HEMATOLOGY METHOD 05/13/2023 3:15 PM EST [facility] Basophils % 0.0 % LAB HEMATOLOGY METHOD 05/13/2023 3:15 PM EST [facility] Immature Granulocytes % 0.0 % LAB HEMATOLOGY METHOD 05/13/2023 3:15 PM EST [facility] Neutrophils Absolute 11.10(H) 1.60 - 6.10 10*3/uL LAB HEMATOLOGY METHOD 05/13/2023 3:15 PM EST [facility] Lymphocytes Absolute 1.33 1.20 - 3.90 10*3/uL LAB HEMATOLOGY METHOD 05/13/2023 3:15 PM EST [facility] Monocytes Absolute 1.14(H) 0.30 - 0.90 10*3/uL LAB HEMATOLOGY METHOD 05/13/2023 3:15 PM EST [facility] Eosinophils Absolute 0.07 0.00 - 0.50 10*3/uL LAB HEMATOLOGY METHOD 05/13/2023 3:15 PM EST [facility] Basophils Absolute 0.04 0.00 - 0.10 10*3/uL LAB HEMATOLOGY METHOD 05/13/2023 3:15 PM EST [facility] Immature Granulocytes Absolute 0.04 0.00 - 0.06 10*3/uL LAB HEMATOLOGY METHOD 05/13/2023 3:15 PM EST [facility] Blood Venous blood specimen / Unknown Venipuncture / Unknown 05/13/2023 3:08 PM EST 05/13/2023 3:12 PM EST Narrative [facility] - 05/13/2023 3:15 PM EST Therapeutic decision making should be based on absolute values, rather than percentages. us Rodney Smart MD LAB BLOOD ORDERABLES Final Result Performing Organization Address City/State/[facility] Co de Phone Number [facility] [address] [place] [address] * CT Bony Pelvis (05/13/2023 12:50 PM EST) Anatomical Region Laterality Modality Pelvis Computed Tomogra phy Addenda Addendum by Jamison Phoenix MD on 05/13/2023 3:17 PM EST Addendum: ADDENDUM: Subtle cortical irregularity seen on the right femoral neck could represent a minimally displaced femoral neck fracture. If there is strong clinical suspicion for a nondisplaced fracture a MRI could be helpful for further evaluation. Drafted by Jamison Phoenix MD on 05/13/2023 3:14 PM Final report signed by Jamison Phoenix MD on 05/13/2023 3:17 PM Impressions 05/13/2023 2:33 PM EST No acute osseous, articular or soft tissue abnormality identified. CRITICAL RESULT: No. COMMUNICATION: Per this written report. Drafted by Jamison Phoenix MD on 05/13/2023 2:31 PM Final report signed by Jamison Phoenix MD on 05/13/2023 2:33 PM Narrative 05/13/2023 2:33 PM EST CLINICAL INDICATION: Trauma evaluation TECHNIQUE: Multiple axial CT images were obtained through level of pelvis per CT Bony Pelvis protocol. The axial CT data set was used to generate high resolution reformatted images in the coronal and sagittal planes to facilitate diagnostic accuracy and treatment planning. ?? Total DLP (Dose-Length Product): 205.94 mGy.cm. Please note: The reported value represents the total of one or more individual components during the CT acquisition on this date and at this time, and as such, the same value may appear in more than one CT report depending on the interpreting/reporting physicians. COMPARISON: None. FINDINGS: No acute fracture or dislocation. Sclerotic finding within the right femoral neck is likely a bone island. No diastases the SI joints or pubic symphysis. No significant degenerative change. No radiographic foreign body. No joint effusion identified. Procedure Note Jamison Phoenix MD - 05/13/2023 CLINICAL INDICATION: Trauma evaluation TECHNIQUE: Multiple axial CT images were obtained through level of pelvis per CT BonyPelvis protocol. The axial CT data set was used to generate highresolution reformatted images in the coronal and sagittal planes tofacilitate diagnostic accuracy and treatment planning. Total DLP (Dose-Length Product): 205.94 mGy.cm. Please note: The reportedvalue represents the total of one or more individual components during theCT acquisition on this date and at this time, and as such, the same valuemay appear in more than one CT report depending on theinterpreting/reporting physicians. COMPARISON: None. FINDINGS: No acute fracture or dislocation. Sclerotic finding within the rightfemoral neck is likely a bone island. No diastases the SI joints or pubicsymphysis. No significant degenerative change. No radiographic foreignbody. No joint effusion identified. IMPRESSION: No acute osseous, articular or soft tissue abnormality identified. CRITICAL RESULT: No. COMMUNICATION: Per this written report. Drafted by Jamison Phoenix MD on 05/13/2023 2:31 PM Final report signed by Jamison Phoenix MD on 05/13/2023 2:33 PM Rodney Smart MD IMG CT PROCEDURES Edited Re sult - Final * XR Pelvis 1 or 2 Views (05/13/2023 11:36 AM EST) Anatomical Region Laterality Modality Body, Pelvis Digital Radiogra phy Impressions 05/13/2023 12:10 PM EST No acute osseous, articular or soft tissue abnormality identified. CRITICAL RESULT: ?? No. COMMUNICATION: Per this written report. Drafted by Jamison Phoenix MD on 05/13/2023 12:09 PM Final report signed by Jamison Phoenix MD on 05/13/2023 12:10 PM Narrative 05/13/2023 12:10 PM EST CLINICAL INDICATION: Trauma evaluation TECHNIQUE: XR PELVIS 1 OR 2 VIEWS, XR KNEE RIGHT 3 VIEWS, XR FEMUR RIGHT 2+ VIEWS COMPARISON: None. FINDINGS: Pelvis: No acute fracture or dislocation. No diastases of SI joints or pubic symphysis. Right femur: No acute fracture or dislocation. No significant degenerative change. No radiopaque foreign body. Right knee: No acute fracture or dislocation. No significant degenerative change. No joint effusion. Procedure Note Jamison Phoenix MD - 05/13/2023 CLINICAL INDICATION: Trauma evaluation TECHNIQUE: XR PELVIS 1 OR 2 VIEWS, XR KNEE RIGHT 3 VIEWS, XR FEMUR RIGHT 2+ VIEWS COMPARISON: None. FINDINGS: Pelvis: No acute fracture or dislocation. No diastases of SI joints orpubic symphysis. Right femur: No acute fracture or dislocation. No significant degenerativechange. No radiopaque foreign body. Right knee: No acute fracture or dislocation. No significant degenerativechange. No joint effusion. IMPRESSION: No acute osseous, articular or soft tissue abnormality identified. CRITICAL RESULT: No. COMMUNICATION: Per this written report. Drafted by Jamison Phoenix MD on 05/13/2023 12:09 PM Final report signed by Jamison Phoenix MD on 05/13/2023 12:10 PM us Rodney Smart MD IMG XR PROCEDURES Final Res ult * XR Knee Right 3 Views (05/13/2023 11:36 AM EST) Anatomical Region Laterality Modality Lower Extremities, Knee Right Digital Radiography Impressions 05/13/2023 12:10 PM EST No acute osseous, articular or soft tissue abnormality identified. CRITICAL RESULT: ?? No. COMMUNICATION: Per this written report. Drafted by Jamison Phoenix MD on 05/13/2023 12:09 PM Final report signed by Jamison Phoenix MD on 05/13/2023 12:10 PM Narrative 05/13/2023 12:10 PM EST CLINICAL INDICATION: Trauma evaluation TECHNIQUE: XR PELVIS 1 OR 2 VIEWS, XR KNEE RIGHT 3 VIEWS, XR FEMUR RIGHT 2+ VIEWS COMPARISON: None. FINDINGS: Pelvis: No acute fracture or dislocation. No diastases of SI joints or pubic symphysis. Right femur: No acute fracture or dislocation. No significant degenerative change. No radiopaque foreign body. Right knee: No acute fracture or dislocation. No significant degenerative change. No joint effusion. Procedure Note Jamison Phoenix MD - 05/13/2023 CLINICAL INDICATION: Trauma evaluation TECHNIQUE: XR PELVIS 1 OR 2 VIEWS, XR KNEE RIGHT 3 VIEWS, XR FEMUR RIGHT 2+ VIEWS COMPARISON: None. FINDINGS: Pelvis: No acute fracture or dislocation. No diastases of SI joints orpubic symphysis. Right femur: No acute fracture or dislocation. No significant degenerativechange. No radiopaque foreign body. Right knee: No acute fracture or dislocation. No significant degenerativechange. No joint effusion. IMPRESSION: No acute osseous, articular or soft tissue abnormality identified. CRITICAL RESULT: No. COMMUNICATION: Per this written report. Drafted by Jamison Phoenix MD on 05/13/2023 12:09 PM Final report signed by Jamison Phoenix MD on 05/13/2023 12:10 PM us Rodney Smart MD IMG XR PROCEDURES Final Res ult * XR Femur Right 2+ Views (05/13/2023 11:36 AM EST) Anatomical Region Laterality Modality Lower Extremities, Femur Right Digital Radiography Impressions 05/13/2023 12:10 PM EST No acute osseous, articular or soft tissue abnormality identified. CRITICAL RESULT: ?? No. COMMUNICATION: Per this written report. Drafted by Jamison Phoenix MD on 05/13/2023 12:09 PM Final report signed by Jamison Phoenix MD on 05/13/2023 12:10 PM Narrative 05/13/2023 12:10 PM EST CLINICAL INDICATION: Trauma evaluation TECHNIQUE: XR PELVIS 1 OR 2 VIEWS, XR KNEE RIGHT 3 VIEWS, XR FEMUR RIGHT 2+ VIEWS COMPARISON: None. FINDINGS: Pelvis: No acute fracture or dislocation. No diastases of SI joints or pubic symphysis. Right femur: No acute fracture or dislocation. No significant degenerative change. No radiopaque foreign body. Right knee: No acute fracture or dislocation. No significant degenerative change. No joint effusion. Procedure Note Jamison Phoenix MD - 05/13/2023 CLINICAL INDICATION: Trauma evaluation TECHNIQUE: XR PELVIS 1 OR 2 VIEWS, XR KNEE RIGHT 3 VIEWS, XR FEMUR RIGHT 2+ VIEWS COMPARISON: None. FINDINGS: Pelvis: No acute fracture or dislocation. No diastases of SI joints orpubic symphysis. Right femur: No acute fracture or dislocation. No significant degenerativechange. No radiopaque foreign body. Right knee: No acute fracture or dislocation. No significant degenerativechange. No joint effusion. IMPRESSION: No acute osseous, articular or soft tissue abnormality identified. CRITICAL RESULT: No. COMMUNICATION: Per this written report. Drafted by Jamison Phoenix MD on 05/13/2023 12:09 PM Final report signed by Jamison Phoenix MD on 05/13/2023 12:10 PM us Rodney Smart MD IMG XR PROCEDURES Final Res ult documented in this encounter Visit Diagnoses Diagnosis Pelvic straddle injury, initial encounter- Primary Pelvic straddle injury, initial encounter documented in this encounter Admitting Diagnoses Diagnosis Pelvic straddle injury, initial encounter documented in this encounter Administered Medications Inactive Administered Medications - up to 3 most recent administrations Medication Order MAR Action Action Date Dose Rate Site acetaminophen (Tylenol) tablet 1,000 mg 1,000 mg, Oral, Every 6 hours scheduled, First dose on Fri05/13/23 at 1800, Until Discontinued, Routine Given 05/15/2023 11:22 AM EST 1,000 mg Given 05/15/2023 5:04 AM EST 1,000 mg Given 05/14/2023 5:47 PM EST 1,000 mg bisacodyl (Dulcolax) suppository 10 mg 10 mg, Rectal, Daily PRN, Starting on Fri05/13/23 at 1556, Until Fri05/15/23 at 1617, Routine, constipation, if no bowel movement for 72 hours and no response to magnesium hydroxide enoxaparin (Lovenox) syringe 30 mg 30 mg, Subcutaneous, 2 times daily, First dose (after last reorder) on Fri05/14/23 at 0900, Until Discontinued, Routine Given 05/14/2023 8:31 AM EST 30 mg Left Lower Abdomen HYDROmorphone (Dilaudid) injection 0.5 mg 0.5 mg, Intravenous, Once, 1 dose, On Fri05/13/23 at 1205, Routine Given 05/13/2023 12:08 PM EST 0.5 mg ibuprofen tablet 400 mg 400 mg, Oral, Every 4 hours PRN, Starting on Fri05/13/23 at 1558, Until Fri05/15/23 at 1617, Routine, mild pain Given 05/14/2023 3:40 PM EST 400 mg iohexol (OMNIPaque) 300 MG/ML injection 10 mL 10 mL, Intra-articular, Once in imaging, 1 dose, Starting on Fri05/14/23 at 1807, Until Fri05/15/23 at 1617, Routine, Imaging Protocol Orders iohexol (OMNIPaque) 300 MG/ML injection 75 mL 75 mL, Other, Once, 1 dose, On Fri05/14/23 at 1800, STAT, Sign Given 05/14/2023 7:20 PM EST 2 mL ketorolac (Toradol) injection 15 mg 15 mg, Intravenous, Once, 1 dose, On Fri05/13/23 at 1435, STAT Given 05/13/2023 2:45 PM EST 15 mg lidocaine PF (Xylocaine) 1 % injection 200 mg 200 mg (20 mL), Injection, Once, 1 dose, On Fri05/14/23 at 1930, STAT, Imaging Protocol Orders Given 05/14/2023 7:15 PM EST 5 mL magnesium hydroxide (Milk of Magnesia) 400 MG/5ML suspension 30 mL 30 mL, Oral, Daily PRN, Starting on Fri05/13/23 at 1556, Until Fri05/15/23 at 1617, Routine, constipation, if no bowel movement for 48 hours methocarbamol (Robaxin) tablet 750 mg 750 mg, Oral, Every 6 hours PRN, Starting on Fri05/13/23 at 1558, Until Fri05/15/23 at 1617, Routine, muscle spasms Given 05/15/2023 11:22 AM EST 750 mg Given 05/14/2023 9:25 PM EST 750 mg Given 05/14/2023 3:40 PM EST 750 mg naloxone (Narcan) injection 0.08 mg 0.08 mg, Intravenous, As needed, Starting on Fri05/13/23 at 1558, Until Fri05/15/23 at 1617, Routine, respiratory depression, every 2 minutes oxyCODONE (Roxicodone) immediate release tablet 5 mg 5 mg, Oral, Every 4 hours PRN, Starting on Fri05/13/23 at 1558, Until Fri05/15/23 at 1617, Routine, moderate pain Given 05/15/2023 11:22 AM EST 5 mg Given 05/15/2023 5:49 AM EST 5 mg Given 05/14/2023 9:25 PM EST 5 mg polyethylene glycol (Miralax) packet 17 g 17 g, Oral, Daily, First dose on Fri05/13/23 at 1600, Until Discontinued, Routine Given 05/14/2023 8:31 AM EST 17 g senna-docusate (Kita-Colace) 8.6-50 MG per tablet 1 tablet 1 tablet, Oral, 2 times daily, First dose on Fri05/13/23 at 2100, Until Discontinued, Routine Given 05/14/2023 9:25 PM EST 1 tablet Given 05/14/2023 8:31 AM EST 1 tablet sodium chloride 0.9 % flush 10 mL 10 mL, Intravenous, Every 12 hours PRN, Starting on Fri05/13/23 at 1556, Until Danisha 05/15/23 at 1617, Routine, line care sodium chloride 0.9 % flush 10 mL 10 mL, Intravenous, As needed, Starting on Fri05/13/23 at 1556, Until Danisha 05/15/23 at 1617, Routine, line care, Before and after each medication infusion documented in this encounter Active and Recently Administered Medications Times are shown in EST. Scheduled Medication Order 05/13/2023 05/14/2023 05/15/2023 acetaminophen (Tylenol) tablet 1,000 mg 1,000 mg, Oral, Every 6 hours scheduled, First dose on Fri05/13/23 at 1800, Until Discontinued, Routine 1713 (Not Given - Provider: Wil Barth RN - Reason: Patient in procedure)1717 (MAR Hold - Provider: Automatic Transfer Provider - Reason: Patient in procedure)1842 (MAR Unhold - Provider: Automatic Transfer Provider) 0010 (Given - Provider: Virgen Rolon)0551 (Given - Provider: Virgen Rolon)1120 (Given - Provider: Carole Coley)1747 (Given - Provider: Carole Coley)2352 (Not Given - Provider: Virgen Rolon - Reason: Hold for condition: must add comment - Comment: cummlative dose g.) 0504 (Given - Provider: Virgen Rolon)1122 (Given - Provider: Carole Coley) enoxaparin (Lovenox) syringe 30 mg 30 mg, Subcutaneous, 2 times daily, First dose (after last reorder) on Fri05/14/23 at 0900, Until Discontinued, Routine 0831 (Given - Provider: Carole Coley)1925 (Held by provider - Provider: Mk Abdi MD - Reason: Upcoming test/procedure)2100 (Dose Auto Held - Provider: Mk Abdi MD) 0727 (Unheld by provider - Provider: Ba Tejeda MD)1045 (Not Given - Provider: Carole Coley - Reason: Patient/family refused) HYDROmorphone (Dilaudid) injection 0.5 mg (COMPLETED) 0.5 mg, Intravenous, Once, 1 dose, On Fri05/13/23 at 1205, Routine 1208 (Given - Provider: Wil Barth, CALEB) iohexol (OMNIPaque) 300 MG/ML injection 10 mL 10 mL, Intra-articular, Once in imaging, 1 dose, Starting on Fri05/14/23 at 1807, Until Fri05/15/23 at 1617, Routine, Imaging Protocol Orders iohexol (OMNIPaque) 300 MG/ML injection 75 mL (COMPLETED) 75 mL, Other, Once, 1 dose, On Fri05/14/23 at 1800, STAT, Sign 1920 (Given - Provider: Oksana Tarango) ketorolac (Toradol) injection 15 mg (COMPLETED) 15 mg, Intravenous, Once, 1 dose, On Fri05/13/23 at 1435, STAT 1445 (Given - Provider: Wil Barth, CALEB) lidocaine PF (Xylocaine) 1 % injection 200 mg (COMPLETED) 200 mg (20 mL), Injection, Once, 1 dose, On Fri05/14/23 at 1930, STAT, Imaging Protocol Orders 1915 (Given - Provider: Oksana Tarango) polyethylene glycol (Miralax) packet 17 g 17 g, Oral, Daily, First dose on Fri05/13/23 at 1600, Until Discontinued, Routine 1640 (Not Given - Provider: Wil Barth RN - Reason: Patient/family refused)171 (MAY Hold - Provider: Automatic Transfer Provider - Reason: Patient in procedure)184 (MAY Unhold - Provider: Automatic Transfer Provider) 0831 (Given - Provider: Carole Coley) 1045 (Not Given - Provider: Carole Coley - Reason: Patient/family refused) senna-docusate (Kita-Colace) 8.6-50 MG per tablet 1 tablet 1 tablet, Oral, 2 times daily, First dose on Fri05/13/23 at 2100, Until Discontinued, Routine 171 (MAY Hold - Provider: Automatic Transfer Provider - Reason: Patient in procedure)184 (MAY Unhold - Provider: Automatic Transfer Provider)2215 (Not Given - Provider: Virgen Rolon - Reason: Patient/family refused) 0831 (Given - Provider: Carole Coley)2125 (Given - Provider: Virgen Rolon) 1045 (Not Given - Provider: Carole Coley - Reason: Patient/family refused) PRN Medication Order 05/13/2023 05/14/2023 05/15/2023 bisacodyl (Dulcolax) suppository 10 mg 10 mg, Rectal, Daily PRN, Starting on 05/13/23 at 1556, Until Danisha 05/15/23 at 1617, Routine, constipation, if no bowel movement for 72 hours and no response to magnesium hydroxide 1717 ([facility] Hold - Provider: Automatic Transfer Provider - Reason: Patient in procedure)184 ([facility] Unhold - Provider: Automatic Transfer Provider) ibuprofen tablet 400 mg 400 mg, Oral, Every 4 hours PRN, Starting on 05/13/23 at 1558, Until Danisha 05/15/23 at 1617, Routine, mild pain 171 ([facility] Hold - Provider: Automatic Transfer Provider - Reason: Patient in procedure)184 ([facility] Unhold - Provider: Automatic Transfer Provider) 154 (Given - Provider: Carole Coley) magnesium hydroxide (Milk of Magnesia) 400 MG/5ML suspension 30 mL 30 mL, Oral, Daily PRN, Starting on 05/13/23 at 1556, Until Danisha 05/15/23 at 1617, Routine, constipation, if no bowel movement for 48 hours 171 ([facility] Hold - Provider: Automatic Transfer Provider - Reason: Patient in procedure)184 ([facility] Unhold - Provider: Automatic Transfer Provider) methocarbamol (Robaxin) tablet 750 mg 750 mg, Oral, Every 6 hours PRN, Starting on 05/13/23 at 1558, Until Danisha 05/15/23 at 1617, Routine, muscle spasms 171 ([facility] Hold - Provider: Automatic Transfer Provider - Reason: Patient in procedure)184 ([facility] Unhold - Provider: Automatic Transfer Provider)2110 (Given - Provider: Virgen Rolon) 1540 (Given - Provider: Carole Coley)212 (Given - Provider: Virgen Rolon) 112 (Given - Provider: Carole Coley) naloxone (Narcan) injection 0.08 mg 0.08 mg, Intravenous, As needed, Starting on 05/13/23 at 1558, Until Danisha 05/15/23 at 1617, Routine, respiratory depression, every 2 minutes 171 ([facility] Hold - Provider: Automatic Transfer Provider - Reason: Patient in procedure)184 ([facility] Unhold - Provider: Automatic Transfer Provider) oxyCODONE (Roxicodone) immediate release tablet 5 mg 5 mg, Oral, Every 4 hours PRN, Starting on e 05/13/23 at 1558, Until Danisha 3 at 1617, Routine, moderate pain 1717 ([facility] Hold - Provider: Automatic Transfer Provider - Reason: Patient in procedure)184 ([facility] Unhold - Provider: Automatic Transfer Provider)211 (Given - Provider: Virgen Rolon) 0831 (Given - Provider: Carole Coley)1540 (Given - Provider: Carole Coley)2125 (Given - Provider: Virgen Rolon) 0549 (Given - Provider: Virgen Rolon)1122 (Given - Provider: Carole Coley) sodium chloride 0.9 % flush 10 mL(Linked Group 1) 10 mL, Intravenous, Every 12 hours PRN, Starting on Fri05/13/23 at 1556, Until Danisha 05/15/23 at 1617, Routine, line care 1717 ([facility] Hold - Provider: Automatic Transfer Provider - Reason: Patient in procedure)184 ([facility] Unhold - Provider: Automatic Transfer Provider) sodium chloride 0.9 % flush 10 mL(Linked Group 1) 10 mL, Intravenous, As needed, Starting on Fri05/13/23 at 1556, Until Danisha 3 at 1617, Routine, line care, Before and after each medication infusion 1717 ([facility] Hold - Provider: Automatic Transfer Provider - Reason: Patient in procedure)184 ([facility] Unhold - Provider: Automatic Transfer Provider) Linked Groups Order Group 1: Insert peripheral IV (COMPLETED) Once, On Fri05/13/23 at 1557, For 1 occurrence And Saline lock IV (COMPLETED) Once, On Fri05/13/23 at 1557, For 1 occurrence And sodium chloride 0.9 % flush 10 mLJump to med 10 mL, Intravenous, Every 12 hours PRN, Starting on Fri05/13/23 at 1556, Until Danisha 324 at 1617, Routine, line care And sodium chloride 0.9 % flush 10 mLJump to med 10 mL, Intravenous, As needed, Starting on Fri05/13/23 at 1556, Until Danisha 05/15/23 at 1617, Routine, line care, Before and after each medication infusion documented in this encounter Additional Health Concerns Assessment Noted Time A Body Mass Index follow-up plan has been documented for the patient 05/15/2023 11:15 AM EST documented as of this encounter Care Teams Electronic Video Games Servicer Relationship Specialty Start Date End Date Pcp, [place] [address] PCP - General Family Medicine 05/13/23 documented as of this encounter
--- OUTSIDE RECORDS SUMMARY | 2024-01-23 10:19 | XMS_ITS | Encounter Summary ---
Author Organization [facility] Address [address] [place] [address] Care Team Providers Care Weighing Station Operator Name Role Phone Pcp, No Primary Care Provider Unavailabl e Reason for Visit * Reason Comments Med Refill Encounter Details Date Type Department Care Team ([facility] st Contact Info) Description 10/11/2022 Refill [facility] [address] [place] [address] Carole Hunt M, AIRCRAFT PART ASSEMBLER [address] [facility] [address] [place] [id number] Social History Tobacco Use Types Packs/Day Years Used Date Smoking Tobacco: Never Assessed Sex and Gender Information Value Date Recorded Sex Assigned at Not on file Legal Sex Male 5:58 PM EDT Gender Identity Not on file Sexual Orientation Not on file documented as of this encounter Miscellaneous Notes * Telephone Encounter - John Leyva - 10/11/2022 4:53 PM EDT I tried looking into patient chart , and I dont see anything listed in his med . The patient chart is completely blank . Would you like for patient to have an appt documented in this encounter Plan of Treatment Not on file documented as of this encounter Visit Diagnoses Not on filedocumented in this encounter Care Teams Weighing Station Operator Relationship Specialty Start Date End Date Pcp, Lala [address] [place] [address] PCP - General Family Medicine 05/13/23 documented as of this encounter
--- OUTSIDE RECORDS SUMMARY | 2024-01-23 10:19 | XMS_ITS | Encounter Summary ---
Author Organization [facility] Address [address] [place] [address] Care Team Providers Care Gambling Dealer Name Role Phone Pcp, No Primary Care Provider Unavailabl e Encounter Details Date Type Department Care Team (Latest Contact Info) Description 05/13/2023 Travel Social History Tobacco Use Types Packs/Day [...] documented as of this encounter Care Teams Gambling Dealer Relationship Specialty Start Date End Date Pcp, No [address] [place] [address] PCP - General Family Medicine 05/13/23 documented as of this encounter
--- OUTSIDE RECORDS SUMMARY | 2024-01-23 10:19 | XMS_ITS | Encounter Summary ---
Author Organization [facility] Address [address] [place] [address] Care Team Providers Care Operations Intelligence Superintendent Name Role Phone Pcp, No Primary Care Provider Unavailabl e Reason for Visit * Auth/Cert (Routine) Specialty Diagnoses / Procedures Referred By Contac t Referred To Contact Diagnoses Pelvic straddle injury, initial encounter Christofer Romano MD [address] [facility] [address] [place] [address] Phone: tel: fax: [facility] [address] [place] [address] Phone: tel: Referral ID Status Reason Start Date Expiration Date Visits Re quested Visits Authorized [id number] 1 1 Encounter Details Date Type Department Care Team (Late st Contact Info) Description 05/13/2023 5:29 PM EST Anesthesia Event [facility] [address] [place] [address] Hans Moon MD [address] [facility] [address] [place] [address] Anesthesia Record Procedure Summary Procedure Name Responsible Anesthesiologist Anesthesia Start Time Anesthesia Stop Time Nerve Block Events No events on file. Meds Name Total 0.25% ropivacaine 30 mL * Agents No agents on file. * Blood No blood administrations on file. Lines, Drains, and Airways No LDAs on file. documented in this encounter Social History Tobacco Use Types Packs/Day [...] as of this encounter Miscellaneous Notes * Anesthesia Procedure Notes - Hans Moon MD - 05/13/2023 5:30 PM EST Associated Order(s): Peripheral Block Peripheral Block Patient location during procedure: holding area Start time: 05/13/2023 5:10 PM End time: 05/13/2023 5:50 PM Reason for block: floor procedure Block is per consult request Staffing Performed: Resident Anesthesiologist: Hans Moon MD Resident: Kenyon Herrera DO Preanesthetic Checklist Completed: patient identified, IV checked, site marked, risks and benefits discussed, surgical consent, monitors and equipment checked, pre-op evaluation and timeout performed Peripheral Block Patient position: supine Prep: ChloraPrep Patient monitoring: heart rate, early intervention school psychologist and continuous pulse ox Anesthesia block type: right fascia iliaca local anesthetic nerve block. Laterality: right Injection technique: single-shot Guidance: ultrasound guided Local infiltration: lidocaine Infiltration strength: 2 % Dose: 2 mL Ultrasound used for needle placement AND ultrasound image retained Needle Needle type: 22g ultrasound needle. Needle length: 8cm. Needle localization: anatomical landmarks, paresthesias and ultrasound guidance Needle insertion depth: 4 cm Medications Administered 0.25% ropivacaine - Injection 30 mL - 05/13/2023 5:25:00 PM Assessment Injection assessment: negative aspiration for heme, no paresthesia on injection, incremental injection and local visualized surrounding nerve on ultrasound Paresthesia pain: none Heart rate change: no Slow fractionated injection: yes Additional Notes Following informed consent, chart review, time out, a right fascia iliaca local anesthetic peripheral nerve block performed in the pacu with full monitoring. Block completed at the request of orthopedic surgery. Patient tolerated procedure well. Excellent ultrasound images obtained with good local anesthetic spread. I was present for the entire procedure. documented in this encounter Plan of Treatment Not on file documented as of this encounter Procedures Procedure Name Priority Date/Time Associated Diagnosis Comments PB POINT OF CARE IMAGING PLACEHOLDER Routine 05/13/2023 5:10 PM EST documented in this encounter Results * PB POINT OF CARE IMAGING PLACEHOLDER (05/13/2023 5:10 PM EST) Narrative Hans Moon MD - 05/13/2023 5:10 PM EST Hans Moon MD ? 05/13/2023 ??5:34 PM Peripheral Block Patient location during procedure: holding area Start time: 05/13/2023 5:10 PM End time: 05/13/2023 5:50 PM Reason for block: floor procedure Block is per consult request Staffing Performed: Resident Anesthesiologist: Hans Moon MD Resident: Kenyon Herrera DO Preanesthetic Checklist Completed: patient identified, IV checked, site marked, risks and benefits discussed, surgical consent, monitors and equipment checked, pre-op evaluation and timeout performed Peripheral Block Patient position: supine Prep: ChloraPrep Patient monitoring: heart rate, early intervention school psychologist and continuous pulse ox Anesthesia block type: right fascia iliaca local anesthetic nerve block. Laterality: right Injection technique: single-shot Guidance: ultrasound guided Local infiltration: lidocaine Infiltration strength: 2 % Dose: 2 mL Ultrasound used for needle placement AND ultrasound image retained Needle Needle type: 22g ultrasound needle. Needle length: 8cm. Needle localization: anatomical landmarks, paresthesias and ultrasound guidance Needle insertion depth: 4 cm Medications Administered 0.25% ropivacaine - Injection 30 mL - 05/13/2023 5:25:00 PM Assessment Injection assessment: negative aspiration for heme, no paresthesia on injection, incremental injection and local visualized surrounding nerve on ultrasound Paresthesia pain: none Heart rate change: no Slow fractionated injection: yes Additional Notes Following informed consent, chart review, time out, a right fascia iliaca local anesthetic peripheral nerve block performed in the pacu with full monitoring. Block completed at the request of orthopedic surgery. Patient tolerated procedure well. Excellent ultrasound images obtained with good local anesthetic spread. I was present for the entire procedure. us Hans Moon MD ANESTHESIA ORDERABLES Edited Res ult - Final documented in this encounter Visit Diagnoses Not on filedocumented in this encounter Administered Medications Inactive Administered Medications - up to 3 most recent administrations Medication Order MAR Action Action Date Dose Rate Site ropivacaine (Naropin) injection Injection, Once PRN Procedure, Starting on Fri05/13/23 at 1710, Until Fri05/13/23 at 1725, Routine, Anesthesia Intraprocedure Given 05/13/2023 5:25 PM EST 30 mL documented in this encounter Additional Health Concerns Assessment Noted Time A Body Mass Index follow-up plan has been documented for the patient 05/15/2023 11:15 AM EST documented as of this encounter Care Teams Operations Intelligence Superintendent Relationship Specialty Start Date End Date Pcp, [place] [address] PCP - General Family Medicine 05/13/23 documented as of this encounter
--- OUTSIDE RECORDS SUMMARY | 2024-01-23 10:19 | XMS_ITS | Clinical Summary ---
Author Organization [facility] , [facility] Address [address] [address] Phone Care Team Providers Care Tool Crib Attendant Name Role Phone Tyson De Jesus MD Unavailable [phone] NO, PCP Unavailable Unavailable Reason for Visit and Chief Complaint The Chief Complaint is: lower back pain Problems Includes: Problems addressed during this encounter and other active Problems Current Visit Onset Date Resolved Date Provider Evan gutierrez Status Lower Back Pain 04/05/2021 DAYANA MARQUEZ PA-C Active Last Documented On 2 1:46PM ; [facility] Plan of Treatment Patient does not require [...] - Last Documented On 07/26/2021 1:38PM ; [facility] Pending Tests Order Diagnosis Results Due Ordering [facility] - MRI MRI Lumbar Spine 04/19/21 KATIA MARQUEZ PA-C Last Documented On 2 4:27PM ; [facility] Instructions to patient Intervention and counseling on cessation of tobacco use Last Documented On 2 1:02PM ; [facility] Lose weight Last Documented On 2 1:02PM ; [facility] Assessments Includes: Assessments from this encounter Findings 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 Pain is no longer a problem for him since the epidural injection. Just residual numbness. Patient states that he can live with what he has currently. - Last Documented On 07/26/2021 1:38PM ; [facility] Instructions Includes: Instructions from this encounter Instructions to patient Intervention and counseling on cessation of tobacco use Last Documented On 2 1:02PM ; [facility] Lose weight Last Documented On 2 1:02PM ; [facility] Medical Equipment - Implanted Devices Includes: Current Devices No Medical Equipment Recorded Medications Includes: Medications discussed during this encounter and other current Medications Past Medications on file Medrol 4 MG Oral Tablet Ther apy Pack 06/11/2021 - 06/18/2021 Provider: Tyson De Jesus MD Diagnosis: take as directed Last Documented On 2 12:35PM By Jennie Otero ; [facility] Medications Administered Includes: Administered Medications from this encounter No Administered Medications Recorded Vital Signs Includes: Vital Signs from this encounter Vital Name 07/26/2021 01:16P Blood Pressure Sitting (mmHg) 152/98 Pulse Rate-Sitting (bpm) 79 Height (in) 72 Weight (lb) 201.6 Body Mass Index (kg/m2) 27.3 Body Surface Area (m2) 2.1 Note: rd Last Documented: On 07/26/2021 1:16PM ; [facility] Results Includes: Results discussed during this encounter [...] Documented On 2 1:02PM ; [facility] No recent change in diet 05/07/2021 Last Documented On 2 1:02PM ; [facility] Not using alcohol 05/07/2021 Last Documented On 2 1:02PM ; [facility] Not using drugs 05/07/2021 Last Documented On 2 1:02PM ; [facility], [facility] Smoker 04/05/2021 Last Documented On 2 1:02PM ; [facility], [facility] Yes, current smoker. 04/05/2021 Last Documented On 2 1:02PM ; [facility], [facility] Not exercising regularly 04/05/2021 Last Documented On 2 1:02PM ; [facility], [facility] Smoking Status Unknown Procedures and Surgical History Includes: Procedures from this encounter Procedures Code Diagnosis Performing Provider Service L ocation Service Date intervention and counseling on cessation of tobacco use 4000F Last Documented On 2 1:02PM ; [facility] use of tobacco assessment performed 1000F Last Documented On 2 1:02PM ; [facility] no influenza immunization patient refuse d Last Documented On 2 1:02PM ; [facility], [facility] follow-up visit in one month with PCP fo r elevated BP Last Documented On 2 1:03PM ; [facility] an X-ray was performed [id number] Last Documented On 2 1:02PM ; [facility] an MRI was performed 04/27/2021-MRI Humberto @ [facility] ~ [id number] Last Documented On 2 1:02PM ; [facility] Medical History Includes: Medical History addressed during this encounter Description Last Updated No recent immunization for flu 2 Last Documented On 2 1:02PM ; [facility] No recent immunization for pneumococcal pneumonia 05/07/2021 Last Documented On 2 1:02PM ; [facility], [facility] Past medical history non-contributory Last Documented On 2 1:02PM ; [facility], [facility] Past Surgical History: pylanautel cyst r emoved from tail [id number] 04/05/2021 Last Documented On 2 1:02PM ; [facility] Family History Includes: Family History addressed during this encounter Description Last Updated No significant family history 05/07/2021 Last Documented On 2 1:02PM ; [facility] Review of Systems Includes: Review of Systems [...] Active Last Documented On 2 1:02PM ; [facility] Encounters Encounter Provider Location Date Check-In Time Check-Out Time Diagnosis WC FOLLOW UP/EST DAYANA MARQUEZ PA-C [facility] 07/27/19 22 1:00PM 1:36PM Insurance Includes: Active Insurance Policies Plan Name Member ID Group # Subscriber Relationship Effect hannah Dates - [id number] RENETTA BLUM Self 01/24/2021 - Unknown Clinical Notes Includes: Clinical Notes from this encounter No Clinical Notes Recorded
--- OUTSIDE RECORDS SUMMARY | 2024-01-23 10:19 | XMS_ITS | Clinical Summary ---
Author Organization [facility] Address [address] [place] [address] Phone Care Team Providers Care Butter Fat Tester Name Role Phone Neal DOLL, Tyson Unavailable [phone] NO, PCP Unavailable Unavailable Reason for Visit and Chief Complaint Epidural Steroid Injection Problems Includes: Problems addressed during this encounter and other active Problems All Visits Onset Date Resolved Date Provider Condition S tatus Lower Back Pain 04/05/2021 DAYANA MARQUEZ PA-C Active Last Documented On 2 1:46PM ; [facility] Plan of Treatment No Plan of [...] Active Last Documented On 2 1:02PM ; [facility] Encounters Encounter Provider Location Date Check-In Time Check-Out Time Diagnosis Epidural Steroid Injection Tyosn De Jesus MD 2 9:34AM 11:59PM Insurance Includes: Active Insurance Policies Plan Name Member ID Group # Subscriber Relationship Effect hannah Dates 1 - [employer] [id number] RENETTA CARREON Self 01/24/2021 - Unknown Clinical Notes Includes: Clinical Notes from this encounter No Clinical Notes Recorded
--- OUTSIDE RECORDS SUMMARY | 2024-01-23 10:19 | XMS_ITS | Clinical Summary ---
Author Organization [facility] , [facility] Address [address] [place] [address] Phone Care Team Providers Care Granite Polisher Apprentice Name Role Phone Neal DOLL, Tyson Unavailable [phone] NO, PCP Unavailable Unavailable Reason for Visit and Chief Complaint Epidural Steroid Injection Problems Includes: Problems addressed during this encounter and other active Problems All Visits Onset Date Resolved Date Provider Condition S tatus Lower Back Pain 04/05/2021 DAYANA MARQUEZ PA-C Active Last Documented On 2 1:46PM ; [facility] Plan of Treatment No Plan [...] Active Last Documented On 2 1:02PM ; [facility] Encounters Encounter Provider Location Date Check-In Time Check-Out Time Diagnosis Epidural Steroid Injection Tyson De Jesus MD 2 2:58PM 11:59PM Insurance Includes: Active Insurance Policies Plan Name Member ID Group # Subscriber Relationship Effect hannah Dates [facility] [id number] RENETTA CARREON Self 01/24/2021 - Unknown Clinical Notes Includes: Clinical Notes from this encounter No Clinical Notes Recorded
--- OUTSIDE RECORDS SUMMARY | 2024-01-23 10:19 | XMS_ITS ---
Author Organization [facility] Address [address] [facility] [place] [address] Phone Care Team Providers Care Wireless Network Engineer Name Role Phone Neal DOLL, Tyson Unavailable [phone] NO, PCP Unavailable Unavailable [...] Documented On 2 1:46PM ; [facility] Plan of Treatment Pending Tests Order Diagnosis Results Due Ordering P rovider Radiology - MRI MRI Lumbar Spine 04/19/21 KATIA MARQUEZ PA-C Last Documented On 2 4:27PM ; [email or web address], [facility] Instructions to patient Intervention and counseling on cessation of tobacco use Last Documented On 2 1:02PM ; [email or web address] Lose weight Last Documented On 2 1:02PM ; [email or web address] Intervention and counseling on cessation of tobacco use Last Documented On 2 3:11PM ; [email or web address] Lose weight Last Documented On 2 3:11PM ; [email or web address] Intervention and counseling on cessation of tobacco use Last Documented On 2 9:38AM ; [facility] Lose weight Last Documented On 2 9:38AM ; [email or web address] Intervention and counseling on cessation of tobacco use Last Documented On 2 2:03PM ; [email or web address] Lose weight Last Documented On 2 1:48PM ; [facility] Assessments Includes: Assessments for all [...] use Last Documented On 2 3:11PM ; [email or web address] Lose weight Last Documented On 2 3:11PM ; [facility] Intervention and counseling on cessation of tobacco use Last Documented On 2 9:38AM ; [facility] Lose weight Last Documented On 2 9:38AM ; [facility] Intervention and counseling on cessation of tobacco use Last Documented On 2 2:03PM ; [facility] Lose weight Last Documented On 2 1:48PM ; [facility] Medical Equipment - Implanted Devices Includes: Current and historical Devices No Medical Equipment Recorded Medications Includes: Current and historical Medications Past Medications on file Medrol 4 MG Oral Tablet Ther apy Pack 06/11/2021 - 06/18/2021 Provider: Tyson De Jesus MD Diagnosis: take as directed Last Documented On 2 12:35PM By Jennie Otero ; [facility] Fluticasone Propionate 50 MC G/ACT Nasal Suspension 02/05/2021 - 06/14/2021 Provider: Diagnosis: Last Documented On 2 3:14PM By Alexandra [facility] Medications Administered Includes: Administered Medications in patient's chart No Administered Medications Recorded Results Includes: Results from 01/22/2023 through 01/23/2024 No Results Recorded For Specified Dates History of Present Illness History of Present Illness not supported for this document type No History of Present Illness Recorded Social History Description Last Updated No caffeine use 05/07/2021 Last Documented On 2 10:12AM ; [facility] No recent change in diet 05/07/2021 Last Documented On 2 10:12AM ; [facility] Not using alcohol 05/07/2021 Last Documented On 2 10:12AM ; [facility] Not using drugs 05/07/2021 Last Documented On 2 10:12AM ; [facility] Smoker 04/05/2021 Last Documented On 2 8:05AM ; [facility] Yes, current smoker. 04/05/2021 Last Documented On 2 8:05AM ; [facility] Not exercising regularly 04/05/2021 Last Documented On 2 8:05AM ; [facility] Smoking Status Unknown Medical History Includes: Medical History in patient's chart Description Last Updated No recent immunization for flu 2 Last Documented On 2 10:12AM ; [facility] No recent immunization for pneumococcal pneumonia 05/07/2021 Last Documented On 2 10:12AM ; [facility] Past medical history non-contributory Last Documented On 2 8:05AM ; [facility] Past Surgical History: pylanautel cyst r emoved from tail [id number] 04/05/2021 Last Documented On 2 8:05AM ; [facility] Family History Includes: Family History in patient's chart Description Last Updated No significant family history 05/07/2021 Last Documented On 2 10:12AM ; [facility] Review of Systems Review of Systems [...] Active Last Documented On 2 1:02PM ; [facility] Insurance Includes: Active Insurance Policies Plan Name Member ID Group # Subscriber Relationship Effect hannah Dates 1 - [facility] [id number] RENETTA CARREON Self 01/24/2021 - Unknown Clinical Notes Includes: Signed Clinical Notes starting from 02/21/2022 No Clinical Notes Recorded
--- OUTSIDE RECORDS SUMMARY | 2024-01-23 10:19 | XMS_ITS | Clinical Summary ---
Author Organization [facility] Address [address] [place] [address] Phone Care Team Providers Care Dustless Operator Name Role Phone Neal DOLL, Tyson Unavailable [phone] NO, PCP Unavailable Unavailable Reason for Visit and Chief Complaint Epidural Steroid Injection Problems Includes: Problems addressed during this encounter and other active Problems All Visits Onset Date Resolved Date Provider Condition S tatus Lower Back Pain 04/05/2021 DAYANA MARQUEZ PA-C Active Last Documented On 2 1:46PM ; [facility] Plan of Treatment No Plan of [...] Subscriber Relationship Effect hannah Dates 1 - [facility] [id number] RENETTA CARREON Self 01/24/2021 - Unknown Clinical Notes Includes: Clinical Notes from this encounter No Clinical Notes Recorded
[2024-01-23 10:48] LABS: Basophils % 0.4 % (0.1-2.0); Eosinophils # 0.1 K/mm3 (0.0-0.4); Eosinophils % 0.5 % (0.1-12.0); Hematocrit 39.5 % (42.0-52.0); Hemoglobin 12.9 g/dL (14.1-18.0); Lymphocytes # 1.2 K/mm3 (0.7-4.5); Lymphocytes % 9.7 % (10-50); Mean Corpuscular HGB Conc 32.6 g/dL (31.8-35.4); Mean Corpuscular Hemoglobin 26.4 pg (27.0-31.2); Mean Platelet Volume 6.5 fl (7.4-10.4); Monocytes # 0.7 K/mm3 (0.1-1.0); Monocytes % 5.4 % (1.7-9.3); Neutrophils # 10.5 K/mm3 (1.8-7.8); Neutrophils % 83.9 % (37.0-80.0); Platelet Count 382 K/mm3 (142-424); Red Blood Count 4.87 M/mm3 (4.60-6.20); White Blood Count 12.5 K/mm3 (4.8-10.8)
[2024-01-23 11:07] LABS: Alanine Aminotransferase 53 U/L (12-78); Albumin Level 3.5 g/dl (3.5-5.0); Albumin/Globulin Ratio 1.3 (1.1-1.8); Alkaline Phosphatase 87 U/L (38-126); Anion Gap 9.8 mEq/L (5-15); Aspartate Amino Transferase 20 U/L (17-59); Bilirubin,Total 0.8 mg/dl (0.2-1.3); Blood Urea Nitrogen 11 mg/dl (9-20); Calcium 9.3 mg/dl (8.4-10.2); Carbon Dioxide 32 mmol/L (22.0-30.0); Chloride 103 mmol/L (98-107); Estimated Glomerular Filt Rate 104 ml/min (>60); GFR (African American) 126 ML/MIN (>60); Globulin 2.6 g/dL (1.3-3.2); Glucose 78 mg/dl (74-100); Potassium 3.8 mmoL/L (3.5-5.1); Sodium 141 mmol/L (136-145); Total Protein,Serum 6.1 g/dl (6.3-8.2)
[2024-01-24 09:14] LABS: Hep B Surface Ab, Qual Non Reactive (.); Hep Be Ag Negative (Negative)
[2024-01-27 16:05] LABS: Saccharomyces cerevisiae, IgA <20.0 Units (0.0-24.9)
[2024-01-27 18:41] LABS: QuantiFERON-TB Gold Plus Negative (Negative)
== END 2024-01-23 23:59 | disposition home or self-care (01) ==
LOC: LAB 10:15
PROVIDERS: PCP Family Medicine; Visit Provider Internal Medicine Gastroenterology
DX: K50.10 Crohn's disease of large intestine without complications (principal)
CPT/HCPCS: 36415; 80053; 85025; 86256; 86480; 86671; 86706; 87350

== ENCOUNTER 2024-02-13 08:52 | Outpatient (CLI) | payer BC, SELFPAY ==
--- OUTSIDE RECORDS SUMMARY | 2024-02-13 08:54 | XMS_ITS ---
Author Organization [facility] Address [address] [facility] [facility] [address] [place] [id number] Care Team Providers Care Wood Gluer Name Role Phone Pati Guzman Primary Care Provider [phone] Lindsey Castro Unavailable [phone] REASON FOR VISIT speak to Tami Encounters Encounter Location Date Provider Diagnosis [facility] [address] [place] [id number] 12/19/2023 Lindsey Castro PLAN OF TREATMENT No Information
--- OUTSIDE RECORDS SUMMARY | 2024-02-13 08:54 | XMS_ITS ---
[facility] [address] [facility] [address] [place] [phone] Care Team Providers Care Civil Design Technician Name Role Phone Pati Guzman Primary Care Provider Dev Silvestre Unavailable [phone] ALLERGIES Allergen (clinical drug ingredient) Drug/Non Drug [...] 01/09/2024 Encounters Encounter Location Date Provider Diagnosis [facility] [address] [facility] [address] [place], [place] [phone] 01/09/2024 Dev Silvestre Acute bronchitis, unspecified organism [...]
--- OUTSIDE RECORDS SUMMARY | 2024-02-13 08:54 | XMS_ITS ---
Author Organization [facility] Address [address] [facility] [address] [facility] [address] [place] [id number] Care Team Providers Care Sole Molder Name Role Phone Pati Guzman Primary Care Provider Lindsey Castro [phone] Encounters Encounter Location Date Provider Diagnosis [place] [address] [facility] [address] [place] [id number] 12/16/2023 Lindsey Castro PLAN OF TREATMENT No Information
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
--- OUTSIDE RECORDS SUMMARY | 2024-02-13 08:55 | XMS_ITS | Encounter Summary ---
Author Organization [facility] Address [address] [place] [address] Care Team Providers Care Daylight Driller Name Role Phone Pcp, No Primary Care [...] documented as of this encounter Care Teams Daylight Driller Relationship Specialty Start Date End Date Pcp, No [address] [place] [address] PCP - General Family Medicine 05/13/23 documented as of this encounter
--- OUTSIDE RECORDS SUMMARY | 2024-02-13 08:55 | XMS_ITS | Encounter Summary ---
Author Organization [facility] Address [address] [place] [address] Care Team Providers Care Upstream Biomanufacturing Technician Name Role Phone Pcp, No Primary Care [...] place to sleep or slept in a group home (including now)? No 05/14/2023 Utilities Answer [...] documented as of this encounter Care Teams Upstream Biomanufacturing Technician Relationship Specialty Start Date End Date Pcp, No [address] [place] [address] PCP - General Family Medicine 05/13/23 documented as of this encounter
--- OUTSIDE RECORDS SUMMARY | 2024-02-13 08:55 | XMS_ITS | Clinical Summary ---
Author Organization [facility] Address [address] [place] [address] Care Team Providers Care Associate Buyer Name Role Phone Pcp, No Primary Care [...] Type Department Care Team Description 12/15/2023 Refill [facility] [address] [place] [address] Carole Hunt, JOANN from Last [...] Bitewings 1977 Dental X-Ray: Full Mouth 1977 [facility]-/Child/Adol SDOH Screenings 1977 [facility]-DTaP,Tdap,and Td Vaccines (1 - Tdap) 1996 [facility]-Hepatitis B Vaccines (1 of 3 - 19+ 3-dose series) 1996 CT Colonography 2022 Colonoscopy 2022 FIT-DNA 2022 FIT 2022 FOBT 2022 Sigmoidoscopy 2022 [facility]-Colorectal Cancer Screening 2022 DVW-YAODS-03 Vaccine (1 - season) 2023 [facility]-Influenza Vaccine (#1) 2023 [facility]- SDOH Screenings 11/14/2023 [facility]-Adult SDOH Screenings 11/14/2023 05/14/2023 [facility]-Depression Screening 05/20/2024 05/21/2023 [facility]-Zoster Vaccines (1 of 2) 06/18/2027 [facility]-RSV Vaccine: 60+ Years or (1 - 1-dose 75+ series) 2052 [facility]-HIV Screening Completed 05/13/2023, 05/13/2023 [facility]-Hepatitis C [...] Antibody Negative Negative 05/13/2023 4:22 PM EST [facility] Blood Venous blood specimen / Unknown Venipuncture / Unknown 05/13/2023 3:08 PM EST 05/13/2023 3:24 PM EST us Rodney Smart MD LAB BLOOD ORDERABLES Final Result [facility] [address] [place] [id number] from Last 3 Months or Most Recently Relevant to Health Maintenance Insurance [place] [id number] [employer] [place] [id number] Advance Directives * Full Code (Latest Code Status on File) Date Activated Date Inactivated Comments 05/13/2023 3:59 PM 05/15/2023 4:22 PM Question Answer Comments Patient has decision-making capacity? Yes Care Teams Associate Buyer Relationship Specialty Start Date End Date Pcp, Lala [address] [place] [address] PCP - General Family Medicine 05/13/23
--- OUTSIDE RECORDS SUMMARY | 2024-02-13 08:55 | XMS_ITS | Encounter Summary ---
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 PAST MEDICAL HISTORY: History reviewed. No pertinent [...] documented as of this encounter Care Teams Gas Line Installer Relationship Specialty Start Date End Date Pcp, [place] [address] PCP - General Family Medicine 05/13/23 documented as of this encounter
--- OUTSIDE RECORDS SUMMARY | 2024-02-13 08:55 | XMS_ITS | Encounter Summary ---
Author Organization [facility] Address [address] [place] [address] Care Team Providers Care Chief Operator Synthesis Name Role Phone Pcp, No Primary Care Provider Unavailabl e Encounter Details Date Type Department Care Team (Latest Contact Info) Description 08/13/2023 7:59 AM EDT - 08/13/2023 11:59 PM EDT [facility] [address], 1[address] [place] [address] Hip pain, right Discharge Disposition: [...] the past 12 months has th e [employer], gas, oil, or water company threatened to [...] Harsh Palomares MD on 08/13/2023 8:19 AM Vsayl Montes MD IMG XR PROCEDURES Final Result [...] documented as of this encounter Care Teams Chief Operator Synthesis Relationship Specialty Start Date End Date Pcp, [place] [address] PCP - General Family Medicine 05/13/23 documented as of this encounter
--- OUTSIDE RECORDS SUMMARY | 2024-02-13 08:55 | XMS_ITS | Encounter Summary ---
Author Organization [facility] Address [address] [place] [address] Care Team Providers Care Non Profit Job Titles Name Role Phone Pcp, No Primary Care Provider Unavailabl e Encounter Details Date Type Department Care Team (Latest Contact Info) Description 09/24/2023 9:29 AM EDT - 09/24/2023 11:59 PM EDT [facility] [address], [address] [place] [address] Hip pain, right Discharge Disposition: [...] place to sleep or slept in a long term (including now)? No 05/14/2023 Utilities Answer Date Recorded In the past 12 months has th e [employer], gas, oil, or water company threatened to [...] documented as of this encounter Care Teams Non Profit Job Titles Relationship Specialty Start Date End Date Pcp, No [address] [place] [address] PCP - General Family Medicine 05/13/23 documented as of this encounter
--- OUTSIDE RECORDS SUMMARY | 2024-02-13 08:55 | XMS_ITS | Encounter Summary ---
Author Organization [facility] Address [address] [place] [address] Care Team Providers Care Freelance Digital Project Manager Name Role Phone Pcp, No Primary Care Provider Unavailabl e Encounter Details Date Type Department Care Team (Late st Contact Info) Description 07/22/2023 Abstract [facility] Orthopaedic Surgery & Sports Medicine [address] [place] [address] Vasyl Montes MD [address] [place] [address] Social History Tobacco Use Types [...] place to sleep or slept in a prison (including now)? No 05/14/2023 Utilities Answer Date [...] documented as of this encounter Care Teams Freelance Digital Project Manager Relationship Specialty Start Date End Date Pcp, No [address] [place] [address] PCP - General Family Medicine 05/13/23 documented as of this encounter
--- OUTSIDE RECORDS SUMMARY | 2024-02-13 08:55 | XMS_ITS | Encounter Summary ---
Author Organization [facility] Address [address] [place] [address] Care Team Providers Care Convenience Store Manager Name Role Phone Pcp, No Primary Care Provider Unavailabl e Encounter Details Date Type Department Care Team (Late st Contact Info) Description 07/16/2023 10:10 AM EDT Office Visit [facility] Orthopaedic Surgery & Sports Medicine [address], [address] [place] [address] Vasyl Montes MD [address] [place] [address] Hip pain, right (Primary Dx) [...] place to sleep or slept in a correction (including now)? No 05/14/2023 Utilities Answer Date [...] Today, I met with Peggy Holcomb, MSN, DESIGNER ARCHITECT, TRANSITION SOCIAL WORKER-C field nurse case manager. I discussed my findings and recommendations. I [...] documented as of this encounter Care Teams Convenience Store Manager Relationship Specialty Start Date End Date Pcp, [place] [address] PCP - General Family Medicine 05/13/23 documented as of this encounter
--- OUTSIDE RECORDS SUMMARY | 2024-02-13 08:55 | XMS_ITS | Encounter Summary ---
Author Organization [facility] Address [address] [place] [address] Care Team Providers Care Disassembler Name Role Phone Pcp, No Primary Care Provider Unavailabl e Encounter Details Date Type Department Care Team (Latest Contact Info) Description 07/16/2023 10:10 AM EDT - 07/16/2023 11:59 PM EDT Hospital Encounter [facility] [address], [address] [place] [address] Hip pain, right Discharge Disposition: [...] the past 12 months has th e [employer], gas, oil, or water company threatened to [...] documented as of this encounter Care Teams Disassembler Relationship Specialty Start Date End Date Pcp, Lala [address] [place] [address] PCP - General Family Medicine 05/13/23 documented as of this encounter
--- OUTSIDE RECORDS SUMMARY | 2024-02-13 08:55 | XMS_ITS | Encounter Summary ---
Author Organization [facility] Address [address] [place] [address] Care Team Providers Care Bottoming Room Supervisor Name Role Phone Pcp, No Primary Care Provider Unavailabl e Encounter Details Date Type Department Care Team (Late st Contact Info) Description 09/24/2023 Abstract [facility] Orthopaedic Surgery & Sports Medicine [address], [address] [place] [address] Vasyl Montes MD [address] [place] [address] Social History Tobacco Use Types [...] documented as of this encounter Care Teams Bottoming Room Supervisor Relationship Specialty Start Date End Date Pcp, No [address] [place] [address] PCP - General Family Medicine 05/13/23 documented as of this encounter
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
--- OUTSIDE RECORDS SUMMARY | 2024-02-13 08:55 | XMS_ITS | Encounter Summary ---
Author Organization [facility] Address [address] [place] [address] Care Team Providers Care Member Of The Legislative Council Name Role Phone Pcp, No Primary Care [...] documented as of this encounter Care Teams Member Of The Legislative Council Relationship Specialty Start Date End Date Pcp, No [address] [place] [address] PCP - General Family Medicine 05/13/23 documented as of this encounter
--- OUTSIDE RECORDS SUMMARY | 2024-02-13 08:55 | XMS_ITS | Encounter Summary ---
Author Organization Healthcare Address [address] [place] [address] Care Team Providers Care Business Control Manager Name Role Phone Pcp, No Primary Care Provider Unavailabl e Encounter Details Date Type Department Care Team (Latest Contact Info) Description 06/11/2023 2:51 PM EDT - 06/11/2023 11:59 PM EDT Hospital Encounter [facility] [address], [address] [place] [address] Hip pain, right Discharge Disposition: [...] the past 12 months has th e [employer], gas, oil, or water company threatened to [...] documented as of this encounter Care Teams Business Control Manager Relationship Specialty Start Date End Date Pcp, Lala [address] [place] [address] PCP - General Family Medicine 05/13/23 documented as of this encounter
--- OUTSIDE RECORDS SUMMARY | 2024-02-13 08:55 | XMS_ITS | Encounter Summary ---
Author Organization [facility] Address [address] [place] [address] Care Team Providers Care Ropeman Name Role Phone Pcp, No Primary Care Provider Unavailabl e Encounter Details Date Type Department Care Team (Late st Contact Info) Description 08/28/2023 Abstract [facility] Orthopaedic Surgery & Sports Medicine [address], [address] [place] [address] Vasyl Montes MD [address] [place] [address] Social History Tobacco Use Types [...] documented as of this encounter Care Teams Ropeman Relationship Specialty Start Date End Date Pcp, No [address] [place] [address] PCP - General Family Medicine 05/13/23 documented as of this encounter
--- OUTSIDE RECORDS SUMMARY | 2024-02-13 08:55 | XMS_ITS | Encounter Summary ---
Author Organization Healthcare Address [address] [place] [address] Care Team Providers Care Whip Sawyer Name Role Phone Pcp, No Primary Care Provider Unavailabl e Encounter Details Date Type Department Care Team (Late st Contact Info) Description 09/24/2023 9:50 AM EDT Office Visit [facility] [address], 1[address] [place] [address] Vasyl Montes MD [address] [place] [address] Hip pain, right (Primary Dx) [...] Notes - Vasyl Montes MD - 09/24/2023 9:50 AM EDT Today, I met with Peggy Holcomb, geriatric case manager, MSN, WELT TREATER, VISUAL EFFECTS EDITOR-C. I discussed my findings and recommendations. I explained to her that he is doing very well at this time. His examination today was completely normal with his demonstrating full active and passive range of motion of his right hip withno pain. His gait also had returned to normal. I answered all her questions. At this time I am releasing him from my care. I gave him a note to return to his regular work with no restrictions this coming Friday. Based on examination today I did not find evidence of any permanent physical impairment. documented in this encounter Plan of Treatment [...] documented as of this encounter Care Teams Whip Sawyer Relationship Specialty Start Date End Date Pcp, No [address] [place] [address] PCP - General Family Medicine 05/13/23 documented as of this encounter
--- OUTSIDE RECORDS SUMMARY | 2024-02-13 08:55 | XMS_ITS | Encounter Summary ---
Author Organization [facility] Address [address] [place] [address] Care Team Providers Care Craft Worker Name Role Phone Pcp, No Primary Care [...] documented as of this encounter Care Teams Craft Worker Relationship Specialty Start Date End Date Pcp, No [address] [place] [address] PCP - General Family Medicine 05/13/23 documented as of this encounter
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
--- OUTSIDE RECORDS SUMMARY | 2024-02-13 08:55 | XMS_ITS | Encounter Summary ---
Author Organization [facility] Address [address] [place] [address] Care Team Providers Care Heat Treating Operator Name Role Phone Pcp, No Primary Care Provider Unavailabl e Encounter Details Date Type Department Care Team (Late st Contact Info) Description 07/30/2023 Abstract [facility] Orthopaedic Surgery & Sports Medicine [address], [address] [place] [address] Vasyl Montes MD [address] [place] [address] Social History Tobacco Use Types [...] documented as of this encounter Care Teams Heat Treating Operator Relationship Specialty Start Date End Date Pcp, No [address] [place] [address] PCP - General Family Medicine 05/13/23 documented as of this encounter
--- OUTSIDE RECORDS SUMMARY | 2024-02-13 08:55 | XMS_ITS | Encounter Summary ---
Author Organization [facility] Address [address] [place] [address] Care Team Providers Care Cv Tech Name Role Phone Pcp, No Primary Care Provider Unavailabl e Reason for Visit * Reason Onset Date Comments HCN Paperwork/Documentation Request 10/10/2023 Encounter Details Date Type Department Care Team (Late st Contact Info) Description 10/10/2023 Telephone [facility] Orthopaedic Surgery & Sports Medicine [address], [address] [place] [address] Vasyl Montes MD [address] [place] [address] HCN Paperwork/Documentatio n Request Social [...] Maya Cooper - Best contact number: Other: [phone] Optimal time of day to reach caller: ANYTIME Additional comments/information from caller: None Note: Please do not reply to this message. Follow-up communication and further actions as a result of this message need to be communicated with the patient directly, if the patient is not active onMyChart. If the patient is active on MyChart, they will receive notification of the communication/outcome via [employer]. documented in this encounter Plan of Treatment [...] documented as of this encounter Care Teams Cv Tech Relationship Specialty Start Date End Date Pcp, [place] [address] PCP - General Family Medicine 05/13/23 documented as of this encounter
--- OUTSIDE RECORDS SUMMARY | 2024-02-13 08:55 | XMS_ITS | Encounter Summary ---
Author Organization [facility] Address [address] [place] [address] Care Team Providers Care Gold Tooler Name Role Phone Pcp, No Primary Care [...] place to sleep or slept in a fci (including now)? No 05/14/2023 Utilities Answer Date [...] documented as of this encounter Care Teams Gold Tooler Relationship Specialty Start Date End Date Pcp, No [address] [place] [address] PCP - General Family Medicine 05/13/23 documented as of this encounter
--- OUTSIDE RECORDS SUMMARY | 2024-02-13 08:55 | XMS_ITS | Encounter Summary ---
Author Organization [facility] Address [address] [place] [address] Care Team Providers Care Scribing Machine Operator Name Role Phone Pcp, No [...] documented as of this encounter Care Teams Scribing Machine Operator Relationship Specialty Start Date End Date Pcp, No [address] [place] [address] PCP - General Family Medicine 05/13/23 documented as of this encounter
--- OUTSIDE RECORDS SUMMARY | 2024-02-13 08:55 | XMS_ITS | Encounter Summary ---
Author Organization Healthcare Address [address] [place] [address] Care Team Providers Care Director Hris Name Role Phone Pcp, No Primary Care Provider Unavailabl e Encounter Details Date Type Department Care Team (Late st Contact Info) Description 08/13/2023 8:50 AM EDT [facility] [address], 1[address] [place] [address] Vasyl Montes MD [address] [place] [address] Hip pain, right (Primary Dx) [...] met with Maya Redd RN BSN CCM, case operator. I discussed my findings and recommendations. Told [...] documented as of this encounter Care Teams Director Hris Relationship Specialty Start Date End Date Pcp, [place] [address] PCP - General Family Medicine 05/13/23 documented as of this encounter
--- OUTSIDE RECORDS SUMMARY | 2024-02-13 08:55 | XMS_ITS | Encounter Summary ---
Author Organization [facility] Address [address] [place] [address] Care Team Providers Care Cable Tester Name Role Phone Pcp, No Primary Care [...] documented as of this encounter Care Teams Cable Tester Relationship Specialty Start Date End Date Pcp, No [address] [place] [address] PCP - General Family Medicine 05/13/23 documented as of this encounter
--- OUTSIDE RECORDS SUMMARY | 2024-02-13 08:55 | XMS_ITS | Encounter Summary ---
Author Organization [facility] Address [address] [place] [address] Care Team Providers Care Pulley Worker Name Role Phone Pcp, No Primary Care Provider Unavailabl e Reason for Visit * Reason Comments Follow-up Encounter Details Date Type Department Care Team (Late st Contact Info) Description 08/13/2023 7:50 AM EDT Office Visit [facility] Orthopaedic Surgery & Sports Medicine [address], 1[address] [place] [address] Vasyl Montes MD [address] [place] [address] Hip pain, right (Primary Dx); [...] two-view This note was partially generated using [employer] Direct system, and there may be some [...] documented as of this encounter Care Teams Pulley Worker Relationship Specialty Start Date End Date Pcp, [place] [address] PCP - General Family Medicine 05/13/23 documented as of this encounter
--- OUTSIDE RECORDS SUMMARY | 2024-02-13 08:55 | XMS_ITS | Encounter Summary ---
Author Organization [facility] Address [address] [place] [address] Care Team Providers Care Cable Tool Driller Name Role Phone Pcp, No Primary Care Provider Unavailabl e Reason for Visit * Reason Comments Follow-up Encounter Details Date Type Department Care Team (Late st Contact Info) Description 07/16/2023 10:00 AM EDT Office Visit [facility] Orthopaedic Surgery & Sports Medicine [address], 1[address] [place] [address] Vasyl Montes MD [address] [place] [address] Hip pain, right (Primary Dx) [...] discuss my recommendations and assessment with his adult protective caseworker today. Vasyl Montes MD documented in this [...] as of this encounter Care Teams Cable Tool Driller Relationship Specialty Start Date End Date Pcp, [place] [address] PCP - General Family Medicine 05/13/23 documented as of this encounter
--- OUTSIDE RECORDS SUMMARY | 2024-02-13 08:55 | XMS_ITS | Encounter Summary ---
Author Organization Healthcare Address [address] [place] [address] Care Team Providers Care Cnc Technician Name Role Phone Pcp, No Primary Care Provider Unavailabl e Encounter Details Date Type Department Care Team (Late st Contact Info) Description 06/11/2023 3:20 PM EDT Office Visit [facility]opa[facility] Surgery [facility] Medicine [address], 1[address] [place] [address] Vasyl Montes MD [address] [place] [address] Hip pain, right (Primary Dx) [...] PM EDT Today, I met with his rn case manager hospice. I discussed my findings and recommendations. His [...] documented as of this encounter Care Teams Cnc Technician Relationship Specialty Start Date End Date Pcp, [place] [address] PCP - General Family Medicine 05/13/23 documented as of this encounter
--- OUTSIDE RECORDS SUMMARY | 2024-02-13 08:55 | XMS_ITS | Encounter Summary ---
Author Organization [facility] Address [address] [place] [address] Care Team Providers Care Supervisor Wet Room Name Role Phone Pcp, No Primary Care [...] as of this encounter Care Teams Supervisor Wet Room Relationship Specialty Start Date End Date Pcp, No [address] [place] [address] PCP - General Family Medicine 05/13/23 documented as of this encounter
--- OUTSIDE RECORDS SUMMARY | 2024-02-13 08:55 | XMS_ITS | Encounter Summary ---
Author Organization [facility] Address [address] [place] [id number] Care Team Providers Care Ultrasound Tech Name Role Phone Pcp, No Primary Care Provider Unavailabl e Reason for Visit * Reason Comments Med Refill Encounter Details Date Type Department Care Team (Late st Contact Info) Description 12/15/2023 Refill [facility] [address] [place] [address] Carole Hunt M, ASSISTIVE TECHNOLOGY TRAINER [address] [place] [address] Social History Tobacco Use Types [...] documented as of this encounter Care Teams Ultrasound Tech Relationship Specialty Start Date End Date Pcp, [place] [address] PCP - General Family Medicine 05/13/23 documented as of this encounter
--- OUTSIDE RECORDS SUMMARY | 2024-02-13 08:56 | XMS_ITS | Encounter Summary ---
Author Organization [facility] Address [address] [place] [address] Care Team Providers Care Middle School Sports Coach Name Role Phone Pcp, No Primary Care Provider Unavailabl e Encounter Details Date Type Department Care Team (Latest Contact Info) Description 05/21/2023 9:53 AM EDT - 05/21/2023 11:59 PM EDT Hospital Encounter [facility] [address], [address] [place] [address] Hip pain, right Discharge Disposition: [...] place to sleep or slept in a skilled nursing (including now)? No 05/14/2023 Utilities Answer Date [...] documented as of this encounter Care Teams Middle School Sports Coach Relationship Specialty Start Date End Date Pcp, [place] [address] PCP - General Family Medicine 05/13/23 documented as of this encounter
--- OUTSIDE RECORDS SUMMARY | 2024-02-13 08:56 | XMS_ITS | Encounter Summary ---
Author Organization [facility] Address [address] [place] [address] Care Team Providers Care Pumpman Name Role Phone Pcp, No Primary Care [...] documented as of this encounter Care Teams Pumpman Relationship Specialty Start Date End Date Pcp, No [address] [place] [address] PCP - General Family Medicine 05/13/23 documented as of this encounter
--- OUTSIDE RECORDS SUMMARY | 2024-02-13 08:56 | XMS_ITS ---
Author Organization [facility] Address [address] [place] [address] Phone Care Team Providers Care Optician Apprentice Name Role Phone Neal DOLL, Tyson Unavailable [phone] NO, PCP Unavailable Unavailable [...] Documented On 2 1:46PM ; [facility] Plan of Treatment Pending Tests Order Diagnosis Results Due Ordering P rovider Radiology - MRI MRI Lumbar Spine 04/19/21 KATIA MARQUEZ PA-C Last Documented On 2 4:27PM ; [facility] Instructions to patient Intervention and counseling on cessation of tobacco use Last Documented On 2 1:02PM ; [facility] Lose weight Last Documented On 2 1:02PM ; [facility] Intervention and counseling on cessation of tobacco use Last Documented On 2 3:11PM ; [facility] Lose weight Last Documented On 2 3:11PM ; [facility] Intervention and counseling on cessation of tobacco use Last Documented On 2 9:38AM ; [facility] Lose weight Last Documented On 2 9:38AM ; [facility] Intervention and counseling on cessation of tobacco use Last Documented On 2 2:03PM ; [facility] Lose weight Last Documented On 2 1:48PM ; [facility] Assessments Includes: Assessments for [...] use Last Documented On 2 3:11PM ; [facility] Lose weight Last Documented On 2 3:11PM ; [facility] Intervention and counseling on cessation of tobacco use Last Documented On 2 9:38AM ; [facility] Lose weight Last Documented On 2 9:38AM ; [facility] Intervention and counseling on cessation of tobacco use Last Documented On 2 2:03PM ; [facility] Lose weight Last Documented On 2 1:48PM ; [facility] Medical Equipment - Implanted Devices Includes: Current and historical Devices No Medical Equipment Recorded Medications Includes: Current and historical Medications Past Medications on file Medrol 4 MG Oral Tablet Ther apy Pack 06/11/2021 - 06/18/2021 Provider: Tyson De Jesus MD Diagnosis: take as directed Last Documented On 2 12:35PM By Jennie Otero ; [facility] Fluticasone Propionate 50 MC G/ACT Nasal Suspension 02/05/2021 - 06/14/2021 Provider: Diagnosis: Last Documented On 2 3:14PM By Alexandra [facility] Medications Administered Includes: Administered Medications in patient's chart No Administered Medications Recorded Results Includes: Results from 02/12/2023 through 02/13/2024 No Results Recorded For Specified Dates History of Present Illness History of Present Illness not supported for this document type No History of Present Illness Recorded Social History Description Last Updated No caffeine use 05/07/2021 Last Documented On 2 10:12AM ; [facility], [facility] No recent change in diet 05/07/2021 Last Documented On 2 10:12AM ; [facility], [facility] Not using alcohol 05/07/2021 Last Documented On 2 10:12AM ; [facility] Not using drugs 05/07/2021 Last Documented On 2 10:12AM ; [facility], [facility] Smoker 04/05/2021 Last Documented On 2 8:05AM ; [facility], [facility] Yes, current smoker. 04/05/2021 Last Documented On 2 8:05AM ; [facility], [facility] Not exercising regularly 04/05/2021 Last Documented On 2 8:05AM ; [facility], [facility] Smoking Status Unknown Medical History Includes: Medical History in patient's chart Description Last Updated No recent immunization for flu 2 Last Documented On 2 10:12AM ; [facility] No recent immunization for pneumococcal pneumonia 05/07/2021 Last Documented On 2 10:12AM ; [facility] Past medical history non-contributory Last Documented On 2 8:05AM ; [facility], [facility] Past Surgical History: pylanautel cyst r emoved from tail [id number] 04/05/2021 Last Documented On 2 8:05AM ; [facility], [facility] Family History Includes: Family History in patient's chart Description Last Updated No significant family history 05/07/2021 Last Documented On 2 10:12AM ; [facility], [facility] Review of Systems Review of Systems not [...] Documented On 2 1:02PM ; [facility], [facility] Insurance Includes: Active Insurance Policies Plan Name Member ID Group # Subscriber Relationship Effect hannah Dates 1 - [facility] [id number] RENETTA CARREON Self 01/24/2021 - Unknown Clinical Notes Includes: Signed Clinical Notes starting from 02/21/2022 No Clinical Notes Recorded
--- OUTSIDE RECORDS SUMMARY | 2024-02-13 08:56 | XMS_ITS | Encounter Summary ---
Author Organization [facility] Address [address] [place] [address] Care Team Providers Care Features Reporter Name Role Phone Pcp, No Primary Care Provider Unavailabl e Reason for Visit * Reason Comments Leg Injury * Auth/Cert (Routine) Specialty Diagnoses / Procedures Referred By Contac t Referred To Contact Diagnoses Pelvic straddle injury, initial encounter Christofer Romano MD [address] [address] Phone: tel: fax: [facility] A Emergency Department [address] [place] [address] Phone: tel: Referral ID Status Reason Start Date Expiration Date Visits Re quested Visits Authorized [id number] 1 1 Encounter Details Date Type Department Care Team (Late st Contact Info) Description 05/13/2023 10:11 AM EST - 05/15/2023 2:17 PM [facility] Hospital Encounter [facility] PAVA 9 T2 UNI [address] [place] [address] Rodney Smart MD [address] [place] [address] Lorena Contreras MD [address] [place] [address] Christofer Romano MD [id number] [place] [address] Pelvic straddle injury, initial encounter [...] please contact the Orthopedic Transition Nurse at [phone] Friday through Friday 8:00 am to 2:30 pm. If you feel your concern is a medical emergency please call 911 immediately. * Attachments The following attachments cannot be sent through Care Everywhere. * Straddle Injury, Understanding (Citizen Of [place]) * Surgical Site Infections, Preventing (Citizen Of [place]) * Weight Bearing Status: What It Means ([place]) (Citizen Of [place]) * Methocarbamol Oral Tablet (Citizen Of [place]) * Tramadol Oral Tablet (Citizen Of [place]) * Controlled Substance Discharge Sheet - LANA () (Citizen Of [place]) documented in this encounter Medications at Time [...] Note Tre Blum 47 y.o. 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 Patient given crutches until Worker Comp get his rolling walker) Availability of Care Givers (#Hours): 1-4 hours Family/Recorder Helper [employer](s) Willingness Assessed to care for patient at home: Yes Family/Recorder Helper [employer](s) Readiness Assessed to care for patient at home: Yes Housing Circumstances-Z Codes: Housing Circumstances (select all that apply): None Applicable Patient Referred to Financial or Community Resources: Financial Resources: Other (Comment) ([employer] Luisa Wing (adjustor) [phone]) Community Resources: Other (Comment) (Not indiscted) Other : Home with assist Discharge Facility/Level of Care Needs: Discharge Facility/Level of Care Needs: 1-Home or Self Care Patient's Choice of Community Agency(s): Patient's Choice of Community Agency(s): [employer] will supply rolling walker.. Patient given crutches until Worker Comp get his rolling walker Patient/Family Anticipated Services at Transition: Patient/Family Anticipated Services at Transition: durable medical equipment ([employer] will supply rolling walker. Patient given crutches until Worker Comp get his rolling walker) DME/Equipment Needed after Discharge: Equipment Currently Used at Home: none Equipment Needed After Discharge: crutches, walker, rolling ([employer] will supply rolling walker. Patient given [...] Workers Comp with [employer]. Luisa Wing [phone] is the adjustor. Luisa has not returnedmy [...] Romano MD PCP name and Address: Pcp, [place] [address] Referring provider name and address: No referring provider defined for this encounter. Chief Concern, Brief History of Present Illness, and Hospital Course Patient arrived to [facility] ED 05/14/23 after a straddle injury that [...] Your Medications These medications were sent to [facility] [place], [place] - [address] [facility] [address] acetaminophen 500 MG tablet ibuprofen 400 MG [...] please contact the Orthopedic Transition Nurse at [phone] Friday through Friday 8:00 am to 2:30 pm. If you feel your concern is a medical emergency please call 911 immediately. Outpatient Follow-Up Future Appointments Date Time Provider Department Center 05/21/2023 9:50 AM Vasyl Montes [address] [facility] Test Results Pending At Discharge Pending Labs [...] discharge. Trista Abdi MD PGY-1, Orthopaedic Surgery [facility] Orthopaedic Trauma Service Pager: [phone] Orthopaedic Recon/Spine/Foot and Ankle Service Pager: [phone] Cosigned by Christofer Romano MD at 05/17/2023 11:38 AM EST * Nursing Note - Zahraa Chew, RN - 05/15/2023 10:30 AM EST Orthopedic Transition Nurse Note General: Spoke with: Patient and Bedside nitroglycerin supervisor and Interventions: Assessed: Education: Education provided [...] please contact the Orthopedic Transition Nurse at [phone] Friday through Friday 8:00 am to 2:30 [...] (05/13), [place] [address] and 90% PMNs however negative joint fluid [...] PT/OT Joe Tejeda MD PGY-1, Orthopaedic Surgery [facility] Orthopaedic Trauma Service Pager: [phone] Orthopaedic Recon/Spine/Foot and Ankle Service Pager: [phone] Cosigned by Wilbert Shaw MD at 05/15/2023 [...] No other precautions required Yan Nash MD [facility] Department of Orthopedic Surgery and Sports Medicine Cosigned by Wilbert Shaw MD at 05/15/2023 10:50 AM EST * Progress Notes - Collette Alanis RN - 05/14/2023 1:44 PM EST Case Management Adult Initial Progress Note Tre Blum 47 y.o. male CSN: [id number] Admission: 05/13/2023 10:11 AM Primary Problem: Pelvic straddle injury, initial encounter Pm Head Cook reviewed chart and spoke with patient to complete this Initial Case Management Assessment. PCP: Pcp, No Emergency Contact: Extended Emergency Contact Information Primary Emergency Contact: Alanna Cooper Mobile Relation: Significant Other Preferred language: Citizen Of [place] Manager Of Maintenance needed? No Insurance: Primary Coverage Payer Plan Sponsor Code Group Number Group Name No coverage found Patient information: Primary Caregiver: Self Support System: Immediate family (Alanna ([place])) Daily Living Activities: Functional Status: Independent Living Arrangements: Spouse/Significant other Type of Residence: Private residence, Single Level [address] [address] Smoker in the Home?: Yes Current DME: Equipment Currently Used at Home: none Current DME Provider: None. No HH/HI/Dialysis Income Information: Income Source: Employed Income/Expense Information: Income meets expenses Current Resources Utilized: None Housing Circumstances-Z Codes: Housing Circumstances (select all that apply): None Applicable Patient Referred to: Financial Resources: Other (Comment) ([employer] Luisa Wing (adjustor) [phone]) Community Resources: Other (Comment) (Not indiscted) Other : Home with assist Anticipated Discharge Date: tbd Patient's Discharge Goal: Go Home Assistance Available at Discharge: Alanna ([place]) Discharge Transport: Alanna ([place]) Follow Up Transport: Alanna ([place]) Home Health / Home Infusion / Outpatient Dialysis Services: Current DME Provider: None. No HH/HI/Dialysis Living Will/Advance Directive/Power of Blender Snuff /Guardian: No Lw or POA signed Additional Comments: Per Team, Patient may be able to discharge later this day. Home with assist with rolling walker recs. Spoke with patient concerning discharge POC. Patient stated this injury happened at work. Patientis employed by [employer]. 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 Irvin provided the Workers Comp Insurance is [employer]. Luisa Wing (P) [phone] is the adjustor. FELIPE called and left [...] Note General: Spoke with: Patient and Bedside nitroglycerin supervisor and Interventions: Assessed: Education: Education provided [...] please contact the Orthopedic Transition Nurse at [phone] Friday through Friday 8:00 am to 2:30 pm. If you feel your concern is a medical emergency please call 911 immediately. * Discharge Instr - Other Orders - Zahraa Chew RN - 05/14/2023 9:36 AM EST Based upon recent changes to [place] law related to prescribing opioid pain medications, [...] please contact the Orthopedic Transition Nurse at [phone] Friday through Friday 8:00 am to 2:30 [...] session. Participants in Care Family/Caregiver Present: No Manager Of Maintenance: Not Applicable Presentation Oxygen Therapy: None (Room [...] admission Level of Mobility: Ambulatory- community Mobility [place]: Independent gait without device History of Falls: [...] Mobility Bed Mobility Exam: Rolling/Turning Level of [place]: Modified independence Assistive Device: Bed rails Bed Mobility Exam: Scooting/Bridging Level of [place]: Modified independence Assistive Device: Bed rails Bed Mobility Exam: Supine to Sit Level of [place]: Modified [place] Assistive Device: Bed rails Bed Mobility Exam: Sit to Supine Level of [place]: Modified independence Assistive Device: Bed rails Transfers Transfer Exam: Sit to stand Level of [place]: Modified independence Assistive Device: Walker, rolling Transfer Exam: Stand to Sit Level of [place]: Modified independence Assistive Device: Walker, rolling Gait [...] of Bed 4 Sit to Stand 4 Chair/Nnv-pi-Lohop Transfer 9 Toilet Transfer 9 Car Transfer [...] a helper. 5 Set-up or Clean-up Assistance [place] sets up or cleans up; patient completes activity. [place] assists only prior to or following the activity. 4 Supervision or touching assistance [place] provides verbal cues and/or touching/steadying and/or contact guard assistance as patient completes activity. Assistance may be provided throughout the activity or intermittently. 3 Partial/Moderate Assistance [place] does LESS THAN HALF the effort. [place] lifts, holds or supports trunk or limbs, but provides less than half the effort. 2 Substantial/Maximal Assistance [place] does MORE THAN HALF the effort. [place] lifts or holds trunkor limbs and provides more than half the effort. 1 Dependent [place] does ALL of the effort. Patient does [...] participation in community/leisure activities. Upon discharge from [facility] patient will require Home with assistance to [...] hip. * H&P - LeShea valladares Bill, CARBONIZER TESTER - 05/13/2023 5:33 PM EST Chief Complaint: [...] Illicit substance use: denies Lives with in [employer] Employment:works at [employer] ROS: A 14 point review of systems [...] Orthopedic Surgery and Sports Medicine Consult Pager: [phone] Service Pager: [phone] Cosigned by Arturo Hernandez MD at 05/14/2023 [...] denies Lives with in [place] Employment:works at [employer] ROS: A 14 point review of systems [...] Orthopedic Surgery and Sports Medicine Consult Pager: [phone] Service Pager: [phone] Cosigned by Christofer Romano MD at 05/17/2023 [...] normal. No congestion or rhinorrhea. Mouth/Throat: Lips: Hypoluxo. Mouth: Mucous membranes are moist. Eyes: General: [...] to bear weight and was seen at [facility] clinic, transferred toED via [facility] documented in this encounter Plan of [...] Type Joint Fluid 05/15/2023 1:00 PM EST [facility] Specimen Source, Body Fluid Synovial Fluid (type in source) 05/15/2023 1:00 PM EST [facility] Clinical Diagnosis, Body Fluid Right hip pain 05/15/2023 1:00 PM EST [facility] Interpretation, Body Fluid Abundant acute inflammation. A resident was involved in the service. I attest I examined the relevant preparations for the specimens and confirmed the diagnosis or interpretation. 05/15/2023 1:00 PM EST [facility] Pathologist Signature, Body Fluid 05/15/2023 1:00 PM EST [facility] Comment:Reviewed by: Thai Del Toro MD LAB CP ASR DISCLAIMER Yes 05/15/2023 1:00 PM EST [facility] Joint Fluid Synovial structure / Unknown 05/14/2023 8:27 PM EST us Arturo Hernandez MD LAB BODY FLUIDS AND STOOL S ORDERABLES Final Result Performing Organization Address City/State/[place] Co de Phone Number [facility] [address] [place] [address] * Protime-INR (05/15/2023 12:29 AM EST) Prothrombin Time 13.5 12.0 - 14.3 sec LAB COAGULATION METHOD 05/15/2023 12:57 AM EST [facility] INR 1.0 0.9 - 1.1 LAB COAGULATION METHOD 05/15/2023 12:57 AM EST [facility] Blood Venous blood specimen / Unknown Venipuncture / Unknown 05/15/2023 12:29 AM EST 05/15/2023 12:36 AM EST Narrative [facility] - 05/15/2023 12:57 AM EST OPTIMAL INR RANGES FOR PATIENT ON ORAL ANTICOAGULANT THERAPY Prevention of venous thromboembolism ?INR 2.0 to 3.0 In patients with heart disease: Atrial fibrillation ?INR 2.0 to 3.0 Valvular heart disease ? INR 2.0 to 3.0 Tissue heart valves ?INR 2.0 to 3.0 Mechanical prosthetic valves ? INR 2.5 to 3.5 Prevention of recurrent LA ? INR 2.5 to 3.5 Christofer Romano MD LAB BLOOD ORDERABLES Final R esult [facility] [address] [place] [address] * (ABNORMAL) Basic metabolic panel (05/15/2023 12:29 AM EST) Glucose, Plasma 207(H) 74 - 99 mg/dL 05/15/2023 1:07 AM EST [facility] BUN, Plasma 9 7 - 21 mg/dL 05/15/2023 1:07 AM EST [facility] Creatinine, Plasma 0.74(L) 0.80 - 1.30 mg/dL 05/15/2023 1:07 AM EST [facility] BUN/Creatinine Ratio 12 05/15/2023 1:07 AM EST [facility] Sodium, Plasma 139 136 - 145 mmol/L 05/15/2023 1:07 AM EST [facility] Potassium, Plasma 3.8 3.7 - 4.8 mmol/L 05/15/2023 1:07 AM EST [facility] Chloride, Plasma 105 97 - 107 mmol/L 05/15/2023 1:07 AM EST [facility] CO2, Plasma 24 22 - 29 mmol/L 05/15/2023 1:07 AM EST [facility] Anion Gap 10 6 - 16 mmol/L 05/15/2023 1:07 AM EST [facility] Total Calcium, Plasma 9.5 8.9 - 10.2 mg/dL 05/15/2023 1:07 AM EST [facility] eGFRcr 113.9 mL/min/1.7 3m*2 05/15/2023 1:07 AM EST [facility] Comment:Reported eGFRcr in m L/min/1.73m2 is based the CKD-EPI 2020 equation that does not use a race coefficient. Blood Venous blood specimen / Unknown Venipuncture / Unknown 05/15/2023 12:29 AM EST 05/15/2023 12:36 AM EST Christofer Romano MD LAB BLOOD ORDERABLES Final R esult [facility] [address] [place] [address] * (ABNORMAL) CBC W/O Differential (05/15/2023 12:29 AM EST) WBC Count 12.62(H) 3.70 - 10.30 10*3/uL LAB HEMATOLOGY METHOD 05/15/2023 12:44 AM EST [facility] RBC Count 5.15 4.60 - 6.10 10*6/uL LAB HEMATOLOGY METHOD 05/15/2023 12:44 AM EST [facility] HGB 13.8 13.7 - 17.5 g/dL LAB HEMATOLOGY METHOD 05/15/2023 12:44 AM EST [facility] HCT 42.1 40.0 - 51.0 % LAB HEMATOLOGY METHOD 05/15/2023 12:44 AM EST [facility] Platelet Count 239 155 - 369 10*3/uL LAB HEMATOLOGY METHOD 05/15/2023 12:44 AM EST [facility] MCV 82 79 - 98 fL LAB HEMATOLOGY METHOD 05/15/2023 12:44 AM EST [facility] MCH 26.8 26.0 - 32.0 pg LAB HEMATOLOGY METHOD 05/15/2023 12:44 AM EST [facility] MCHC 32.8 30.7 - 35.5 g/dL LAB HEMATOLOGY METHOD 05/15/2023 12:44 AM EST [facility] RDW 13.1 11.5 - 14.5 % LAB HEMATOLOGY METHOD 05/15/2023 12:44 AM EST [facility] MPV 9.1 8.8 - 12.5 fL LAB HEMATOLOGY METHOD 05/15/2023 12:44 AM EST [facility] nRBC 0.0 <=0.0 per 100 WBCs LAB HEMATOLOGY METHOD 05/15/2023 12:44 AM EST [facility] Blood Venous blood specimen / Unknown Venipuncture / Unknown 05/15/2023 12:29 AM EST 05/15/2023 12:36 AM EST us Christofer Romano MD LAB BLOOD ORDERABLES Final R esult [facility] [address] [place] [address] * (ABNORMAL) Body Fluid Cell Count w/ Diff (05/14/2023 10:58 PM EST) Color, Body fluid Yellow LAB HEMATOLOGY METHOD 05/14/2023 10:58 PM [facility] Appearance, Body fluid Cloudy(A) LAB HEMATOLOGY METHOD 05/14/2023 10:58 PM [facility] Volume, Body fluid 2.5 cc LAB HEMATOLOGY METHOD 05/14/2023 10:58 PM [facility] Fluid Container SPECIMEN RECEIVED IN EDTA TUBE LAB HEMATOLOGY METHOD 05/14/2023 10:58 PM [facility] Red Blood Cell Count, Body fluid 0 uL LAB HEMATOLOGY METHOD 05/14/2023 10:58 PM [facility] Total Nucleated Cell Count, Body fluid 53,170 uL LAB HEMATOLOGY METHOD 05/14/2023 10:58 PM [facility] Neutrophils %, Body fluid 90 % LAB HEMATOLOGY METHOD 05/14/2023 10:58 PM [facility] Lymphocytes %, Body fluid 1 % LAB HEMATOLOGY METHOD 05/14/2023 10:58 PM [facility] Monocytes/Macro phages %, Body fluid 9 % LAB HEMATOLOGY METHOD 05/14/2023 10:58 PM [facility] Eosinophils %, Body fluid 0 % LAB HEMATOLOGY METHOD 05/14/2023 10:58 PM [facility] Basophils %, Body fluid 0 % LAB HEMATOLOGY METHOD 05/14/2023 10:58 PM [facility] Lining/Mesothel ial Cells %, Body fluid 0 % LAB HEMATOLOGY METHOD 05/14/2023 10:58 PM [facility] Neutrophils Absolute (PMN), Body fluid 47,853 uL LAB HEMATOLOGY METHOD 05/14/2023 10:58 PM [facility] Lymphocytes Absolute, Body fluid 532 uL LAB HEMATOLOGY METHOD 05/14/2023 10:58 PM [facility] Monocytes/Macro phages Absolute, Body fluid 4,785 uL LAB HEMATOLOGY METHOD 05/14/2023 10:58 PM [facility] Eosinophils Absolute, Body fluid 0 uL LAB HEMATOLOGY METHOD 05/14/2023 10:58 PM [facility] Basophils Absolute, Body fluid 0 uL LAB HEMATOLOGY METHOD 05/14/2023 10:58 PM [facility] Lining/Mesothel ial Cells Absolute, Body fluid 0 uL LAB HEMATOLOGY METHOD 05/14/2023 10:58 PM [facility] Comment, Body fluid NONE LAB HEMATOLOGY METHOD 05/14/2023 10:58 PM [facility] Comment:This is an appended report. These results have been appended to a previously preliminary verified report. Joint Fluid Synovial structure / Unknown 05/14/2023 8:27 PM EST Result Lily Hernandez MD LAB BODY FLUIDS A ND STOOLS ORDERABLES NO SPECIMEN TYPE/SOURCE Final Result Performing Organization Address [facility] de Phone Number [facility] [address] [place] [address] * Joint Fluid Crystals (05/14/2023 10:33 PM EST) Crystals, Joint Fluid No Crystals Seen No Crystals Present 05/14/2023 10:33 PM EST [facility] Joint Fluid Right hip region structure / Unknown 05/14/2023 8:29 PM EST us Arturo Hernandez MD LAB BODY FLUIDS AND STOOL S ORDERABLES Final Result Performing Organization Address [facility] de Phone Number [facility] [address] [place] [address] * FL Less than 1 Hour Intraoperative (05/14/2023 7:42 PM EST) Narrative IMAGING - 05/20/2023 8:06 AM EDT Images were obtained for surgical purposes. ??See William Alejandro's surgical note in the patient's chart for the findings. Result Lily Hernandez MD IMG FLUOROSCOPY PROCEDURE S Final Result Performing Organization Address [facility] de Phone Number IMAGING * Joint Infection [...] obtain isolates for antimicrobial susceptibility testing and [employer] Joint Infection Panel results should be used in conjunction with culture results for the determination of susceptibility or resistance. Arturo Hernandez MD LAB MICROBIOLOGY - [employer] L ORDERABLES Final Result Performing Organization Address [facility]/[place] Co de Phone Number [facility] [address] [place] [address] * Body Fluid Culture and Gram Stain [...] L ORDERABLES Final Result Performing Organization Address [facility] Co de Phone Number [facility] [address] [place] [address] * (ABNORMAL) C-reactive protein (05/14/2023 5:57 AM [...] ORDERABLES Final R esult Performing Organization Address City/[facility]/ZIP Co de Phone Number [facility] [address] [place] [address] * Sedimentation Rate, Automated (05/14/2023 4:25 AM EST) Sedimentation Rate 4 <15 mm/hr 2023 4:41 AM EST [facility] Blood Venous blood specimen / Unknown Venipuncture / Unknown 05/14/2023 4:25 AM EST 05/14/2023 4:32 AM EST us Christofer Romano MD LAB BLOOD ORDERABLES Final R esult Performing Organization Address City/[facility]/ZIP Co de Phone Number [facility] [address] [place] [address] * MR Pelvis wo IV Contrast (05/14/2023 [...] LAB COAGULATION METHOD 05/14/2023 1:06 AM EST [facility] INR 1.0 0.9 - 1.1 LAB COAGULATION METHOD 05/14/2023 1:06 AM EST [facility] Blood Venous blood specimen / Unknown [...] INR 2.5 to 3.5 Prevention of recurrent LA ? INR 2.5 to 3.5 us Christofer Romano MD LAB BLOOD ORDERABLES Final R esult [facility] [address] [place] [address] * (ABNORMAL) Basic metabolic panel (05/14/2023 12:19 AM EST) Glucose, Plasma 126(H) 74 - 99 mg/dL 05/14/2023 1:07 AM EST [facility] BUN, Plasma 13 7 - 21 mg/dL 05/14/2023 1:07 AM [facility] Creatinine, Plasma 0.98 0.80 - 1.30 mg/dL 05/14/2023 1:07 AM EST [facility] BUN/Creatinine Ratio 13 05/14/2023 1:07 AM [facility] Sodium, Plasma 137 136 - 145 mmol/L 05/14/2023 1:07 AM [facility] Potassium, Plasma 3.8 3.7 - 4.8 mmol/L 05/14/2023 1:07 AM [facility] Chloride, Plasma 101 97 - 107 mmol/L 05/14/2023 1:07 AM [facility] CO2, Plasma 24 22 - 29 mmol/L 05/14/2023 1:07 AM [facility] Anion Gap 12 6 - 16 mmol/L 05/14/2023 1:07 AM [facility] Total Calcium, Plasma 9.2 8.9 - 10.2 mg/dL 05/14/2023 1:07 AM [facility] eGFRcr 96.9 mL/min/1.7 3m*2 05/14/2023 1:07 AM [facility] Comment:Reported eGFRcr in m L/min/1.73m2 is based the CKD-EPI 2020 equation that does not use a race coefficient. Blood Venous blood specimen / Unknown Venipuncture / Unknown 05/14/2023 12:19 AM EST 05/14/2023 12:38 AM EST us Christofer Romano MD LAB BLOOD ORDERABLES Final R esult [facility] [address] [place] [address] * (ABNORMAL) CBC W/O Differential (05/14/2023 12:19 AM EST) WBC Count 13.27(H) 3.70 - 10.30 10*3/uL LAB HEMATOLOGY METHOD 05/14/2023 12:48 AM EST [facility] RBC Count 5.20 4.60 - 6.10 10*6/uL LAB HEMATOLOGY METHOD 05/14/2023 12:48 AM EST [facility] HGB 14.4 13.7 - 17.5 g/dL LAB HEMATOLOGY METHOD 05/14/2023 12:48 AM EST [facility] HCT 43.2 40.0 - 51.0 % LAB HEMATOLOGY METHOD 05/14/2023 12:48 AM EST [facility] Platelet Count 277 155 - 369 10*3/uL LAB HEMATOLOGY METHOD 05/14/2023 12:48 AM EST [facility] MCV 83 79 - 98 fL LAB HEMATOLOGY METHOD 05/14/2023 12:48 AM EST [facility] MCH 27.7 26.0 - 32.0 pg LAB HEMATOLOGY METHOD 05/14/2023 12:48 AM EST [facility] MCHC 33.3 30.7 - 35.5 g/dL LAB HEMATOLOGY METHOD 05/14/2023 12:48 AM EST [facility] RDW 12.9 11.5 - 14.5 % LAB HEMATOLOGY METHOD 05/14/2023 12:48 AM EST [facility] MPV 9.3 8.8 - 12.5 fL LAB HEMATOLOGY METHOD 05/14/2023 12:48 AM EST [facility] nRBC 0.0 <=0.0 per 100 WBCs LAB HEMATOLOGY METHOD 05/14/2023 12:48 AM EST [facility] Blood Venous blood specimen / Unknown Venipuncture / Unknown 05/14/2023 12:19 AM EST 05/14/2023 12:41 AM EST us Christofer Romano MD LAB BLOOD ORDERABLES Final R esult Performing Organization Address City/State/[place] Co de Phone Number [facility] [address] [place] [address] * Type and screen (05/13/2023 4:48 PM [...] ORDERABL ES Final Result Performing Organization Address [facility] Co de Phone Number BLOOD BANK [address] * Hemoglobin A1c (05/13/2023 4:48 PM [...] Adults <6.0% Children and Adolescents <7.5% Source: ??[place]izen [place] Diabetes Association. Standards of medical care in diabetes,2017. Diabetes Care.2017:40 (suppl 1):S1-S135. HbA1c assay performed by an ion-exchange chromatography method that is certified traceable to the DCCT. us Shea Le APRN LAB BLOOD ORDERABLES Final Result Performing Organization Address City/[facility] [employer] Phone Number [facility] [address] [place] [address] * XR Hip Right 2 or 3 [...] on 45:20 PM us Shea N Mimi CARBONIZER TESTER IMG XR PROCEDURES Final Re sult * [...] ECG Atrial Rate 88 BPM MUSE ECG TN Interval 166 ms MUSE ECG QRSD Interval 88 ms MUSE ECG QT Interval 340 ms MUSE ECG QTC Interval 411 ms MUSE ECG P Quitman 30 degrees MUSE ECG R Q[place] 20 degrees MUSE ECG T Wave Quit[place] 7 degrees MUSE ECG Diagnosis Normal sinus rhythm MUSE ECG Diagnosis Nonspecific T wave abnormality MUSE ECG Diagnosis Abnormal ECG MUSE ECG Diagnosis Confirmed by Santos Thorpe ([id number]) on 05/13/2023 4:34:20 PM MUSE ECG 05/13/2023 3:12 PM EST 05/13/2023 4:34 PM EST us Rdoney Smart MD ECG ORDERABLES Final Resul t MUSE ECG * ED HIV 1/2 Antibody/Antigen Screen w/Reflex to HIV 1/2 Differentiation (05/13/2023 3:08 PM EST) Pathologist [facility] HIV 1 & 2 Antibody/Antigen Screen Non Reactive Non Reactive 05/13/2023 4:22 PM EST [facility] Comment:Screening for HIV 1 & 2 antibodies, and P24 antigen is NONREACTIVE. No confirmatory testing is required. Blood Venous blood specimen / Unknown Venipuncture / Unknown 05/13/2023 3:08 PM EST 05/13/2023 3:25 PM EST us Rodney Smart MD LAB BLOOD ORDERABLES Final Result [facility] [address] [place] [address] * Hepatitis C Antibody - ED (05/13/2023 3:08 PM EST) Pathologist [facility] Hepatitis C Antibody Negative Negative 05/13/2023 4:22 PM EST [facility] Blood Venous blood specimen / Unknown Venipuncture / Unknown 05/13/2023 3:08 PM EST 05/13/2023 3:24 PM EST Rodney Smart MD LAB BLOOD ORDERABLES Final Result Performing Organization Address City/State/[facility] Phone Number [facility] [address] [place] [address] * (ABNORMAL) CMP (05/13/2023 3:08 PM EST) Pathologist [facility] Glucose, Plasma 118(H) 74 - 99 mg/dL 05/13/2023 3:50 PM EST [facility] BUN, Plasma 9 7 - 21 mg/dL 05/13/2023 3:50 PM EST [facility] Creatinine, Plasma 0.84 0.80 - 1.30 mg/dL 05/13/2023 3:50 PM EST [facility] BUN/Creatinine Ratio 11 05/13/2023 3:50 PM EST [facility] Sodium, Plasma 139 136 - 145 mmol/L 05/13/2023 3:50 PM EST [facility] Potassium, Plasma 3.7 3.7 - 4.8 mmol/L 05/13/2023 3:50 PM EST [facility] Chloride, Plasma 103 97 - 107 mmol/L 05/13/2023 3:50 PM EST [facility] CO2, Plasma 26 22 - 29 mmol/L 05/13/2023 3:50 PM EST [facility] Anion Gap 10 6 - 16 mmol/L 05/13/2023 3:50 PM EST [facility] Total Calcium, Plasma 8.9 8.9 - 10.2 mg/dL 05/13/2023 3:50 PM EST [facility] Total Protein 6.7 6.3 - 7.9 g/dL 05/13/2023 3:50 PM EST [facility] Albumin, Plasma 4.1 3.5 - 5.2 g/dL 05/13/2023 3:50 PM EST [facility] AST, Plasma 31 10 - 50 U/L 05/13/2023 3:50 PM EST [facility] ALT, Plasma 39 10 - 50 U/L 05/13/2023 3:50 PM EST [facility] Alkaline Phosphatase, Plasma 84 40 - 115 U/L 05/13/2023 3:50 PM EST [facility] Total Bilirubin, Plasma 0.9 0.2 - 1.1 mg/dL 05/13/2023 3:50 PM EST [facility] eGFRcr 109.6 mL/min/1.7 3m*2 05/13/2023 3:50 PM EST [facility] Comment:Reported eGFRcr in m L/min/1.73m2 is based the CKD-EPI 2020 equation that does not use a race coefficient. Blood Venous blood specimen / Unknown Venipuncture / Unknown 05/13/2023 3:08 PM EST 05/13/2023 3:12 PM EST us Rodney Smart MD LAB BLOOD ORDERABLES Final Result Performing Organization Address City/State/[facility] [employer] Phone Number [facility] [address] [place] [address] * PT-INR (05/13/2023 3:08 PM EST) Pathologist [facility] Prothrombin Time 13.1 12.0 - 14.3 sec 05/13/2023 3:25 PM EST [facility] INR 1.0 0.9 - 1.1 05/13/2023 3:25 PM EST [facility] Blood Venous blood specimen / [...] INR 2.5 to 3.5 Prevention of recurrent LA ? INR 2.5 to 3.5 us Rodney Smart MD LAB BLOOD ORDERABLES Final Result [facility] [address] [place] [address] * (ABNORMAL) CBC w/diff (05/13/2023 3:08 PM EST) WBC Count 13.72(H) 3.70 - 10.30 10*3/uL LAB HEMATOLOGY METHOD 05/13/2023 3:15 PM EST [facility] RBC Count 5.17 4.60 - 6.10 10*6/uL LAB HEMATOLOGY METHOD 05/13/2023 3:15 PM EST [facility] HGB 14.1 13.7 - 17.5 g/dL LAB HEMATOLOGY METHOD 05/13/2023 3:15 PM EST [facility] HCT 42.0 40.0 - 51.0 % LAB HEMATOLOGY METHOD 05/13/2023 3:15 PM EST [facility] Platelet Count 256 155 - 369 10*3/uL LAB HEMATOLOGY METHOD 05/13/2023 3:15 PM EST [facility] MCV 81 79 - 98 fL LAB HEMATOLOGY METHOD 05/13/2023 3:15 PM EST [facility] MCH 27.3 26.0 - 32.0 pg LAB HEMATOLOGY METHOD 05/13/2023 3:15 PM EST [facility] MCHC 33.6 30.7 - 35.5 g/dL LAB HEMATOLOGY METHOD 05/13/2023 3:15 PM EST [facility] RDW 12.9 11.5 - 14.5 % LAB HEMATOLOGY METHOD 05/13/2023 3:15 PM EST [facility] MPV 9.1 8.8 - 12.5 fL LAB HEMATOLOGY METHOD 05/13/2023 3:15 PM EST [facility] nRBC 0.0 <=0.0 per 100 WBCs LAB HEMATOLOGY METHOD 05/13/2023 3:15 PM EST [facility] Differential Type Automated LAB HEMATOLOGY METHOD 05/13/2023 3:15 PM EST [facility] Neutrophils % 81.0 % LAB HEMATOLOGY METHOD 05/13/2023 3:15 PM EST [facility] Lymphocytes % 10.0 % LAB HEMATOLOGY METHOD 05/13/2023 3:15 PM EST [facility] Monocytes % 8.0 % LAB HEMATOLOGY METHOD 05/13/2023 3:15 PM EST [facility] Eosinophils % 1.0 % LAB HEMATOLOGY METHOD 05/13/2023 3:15 PM EST [facility] Basophils % 0.0 % LAB HEMATOLOGY METHOD 05/13/2023 3:15 PM EST [facility] Immature Granulocytes % 0.0 % LAB HEMATOLOGY METHOD 05/13/2023 3:15 PM EST [facility] Neutrophils Absolute 11.10(H) 1.60 - 6.10 10*3/uL LAB HEMATOLOGY METHOD 05/13/2023 3:15 PM EST [facility] Lymphocytes Absolute 1.33 1.20 - 3.90 10*3/uL LAB HEMATOLOGY METHOD 05/13/2023 3:15 PM EST [facility] Monocytes Absolute 1.14(H) 0.30 - 0.90 10*3/uL LAB HEMATOLOGY METHOD 05/13/2023 3:15 PM EST [facility] Eosinophils Absolute 0.07 0.00 - 0.50 10*3/uL LAB HEMATOLOGY METHOD 05/13/2023 3:15 PM EST [facility] Basophils Absolute 0.04 0.00 - 0.10 10*3/uL LAB HEMATOLOGY METHOD 05/13/2023 3:15 PM EST [facility] Immature Granulocytes Absolute 0.04 0.00 - 0.06 10*3/uL LAB HEMATOLOGY METHOD 05/13/2023 3:15 PM EST [facility] Blood Venous blood specimen / Unknown Venipuncture / Unknown 05/13/2023 3:08 PM EST 05/13/2023 3:12 PM EST Narrative [facility] - 05/13/2023 3:15 PM EST Therapeutic decision making should be based on absolute values, rather than percentages. us Rodney Smart MD LAB BLOOD ORDERABLES Final Result Performing Organization Address City/State/[facility] [employer] Phone Number [facility] [address] [place] [address] * CT Bony Pelvis (05/13/2023 12:50 PM [...] and no response to magnesium hydroxide 1717 ([facility] Hold - Provider: Automatic Transfer Provider - Reason: Patient in procedure)184 ([facility] Unhold - Provider: Automatic Transfer Provider) ibuprofen tablet 400 mg 400 mg, Oral, Every 4 hours PRN, Starting on 05/13/23 at 1558, Until Danisha 05/15/23 at 1617, Routine, mild pain 171 ([facility] Hold - Provider: Automatic Transfer Provider - Reason: Patient in procedure)184 ([facility] Unhold - Provider: Automatic Transfer Provider) 154 (Given - Provider: Carole Coley) magnesium hydroxide (Milk of Magnesia) 400 MG/5ML suspension 30 mL 30 mL, Oral, Daily PRN, Starting on 05/13/23 at 1556, Until Danisha 05/15/23 at 1617, Routine, constipation, if no bowel movement for 48 hours 171 ([facility] Hold - Provider: Automatic Transfer Provider - Reason: Patient in procedure)184 ([facility] Unhold - Provider: Automatic Transfer Provider) methocarbamol (Robaxin) tablet 750 mg 750 mg, Oral, Every 6 hours PRN, Starting on 05/13/23 at 1558, Until Danisha 05/15/23 at 1617, Routine, muscle spasms 171 ([facility] Hold - Provider: Automatic Transfer Provider - Reason: Patient in procedure)184 ([facility] Unhold - Provider: Automatic Transfer Provider)2110 (Given - Provider: Virgen Rolon) 1540 (Given - Provider: Carole Coley)212 (Given - Provider: Virgen Rolon) 112 (Given - Provider: Carole Coley) naloxone (Narcan) injection 0.08 mg 0.08 mg, Intravenous, As needed, Starting on 05/13/23 at 1558, Until Danisha 05/15/23 at 1617, Routine, respiratory depression, every 2 minutes 171 ([facility] Hold - Provider: Automatic Transfer Provider - Reason: Patient in procedure)184 ([facility] Unhold - Provider: Automatic Transfer Provider) oxyCODONE (Roxicodone) immediate release tablet 5 mg 5 mg, Oral, Every 4 hours PRN, Starting on e 05/13/23 at 1558, Until Danisha 3 at 1617, Routine, moderate pain 1717 ([facility] Hold - Provider: Automatic Transfer Provider - Reason: Patient in procedure)184 ([facility] Unhold - Provider: Automatic Transfer Provider)211 (Given [...] 05/15/23 at 1617, Routine, line care 1717 ([facility] Hold - Provider: Automatic Transfer Provider - Reason: Patient in procedure)184 ([facility] Unhold - Provider: Automatic Transfer Provider) sodium chloride 0.9 % flush 10 mL(Linked Group 1) 10 mL, Intravenous, As needed, Starting on Fri05/13/23 at 1556, Until Danisha 3 at 1617, Routine, line care, Before and after each medication infusion 1717 ([facility] Hold - Provider: Automatic Transfer Provider - Reason: Patient in procedure)184 ([facility] Unhold - Provider: Automatic Transfer Provider) Linked [...] documented as of this encounter Care Teams Features Reporter Relationship Specialty Start Date End Date Pcp, [place] [address] PCP - General Family Medicine 05/13/23 documented as of this encounter
--- OUTSIDE RECORDS SUMMARY | 2024-02-13 08:56 | XMS_ITS | Clinical Summary ---
Author Organization [facility] , [facility] Address [address] [place] [address] Phone Care Team Providers Care Drilling Field Specialist Name Role Phone Tyson De Jesus MD Unavailable [phone] NO, PCP Unavailable Unavailable Reason for Visit and Chief Complaint The Chief Complaint is: lower back pain Problems Includes: Problems addressed during this encounter and other active Problems Current Visit Onset Date Resolved Date Provider Evan gutierrez Status Lower Back Pain 04/05/2021 DAYANA MARQUEZ PA-C Active Last Documented On 2 1:46PM ; [facility] Plan of Treatment Patient does [...] - Last Documented On 07/26/2021 1:38PM ; [facility] Pending Tests Order Diagnosis Results Due Ordering [facility] - MRI MRI Lumbar Spine 04/19/21 KATIA MARQUEZ PA-C Last Documented On 2 4:27PM ; [facility] Instructions to patient Intervention and counseling on cessation of tobacco use Last Documented On 2 1:02PM ; [facility] Lose weight Last Documented On 2 1:02PM ; [facility] Assessments Includes: Assessments from this encounter Findings 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 Pain is no longer a problem for him since the epidural injection. Just residual numbness. Patient states that he can live with what he has currently. - Last Documented On 07/26/2021 1:38PM ; [facility] Instructions Includes: Instructions from this encounter Instructions to patient Intervention and counseling on cessation of tobacco use Last Documented On 2 1:02PM ; [facility] Lose weight Last Documented On 2 1:02PM ; [facility] Medical Equipment - Implanted Devices Includes: Current Devices No Medical Equipment Recorded Medications Includes: Medications discussed during this encounter and other current Medications Past Medications on file Medrol 4 MG Oral Tablet Ther apy Pack 06/11/2021 - 06/18/2021 Provider: Tyson De Jesus MD Diagnosis: take as directed Last Documented On 2 12:35PM By Jennie Otero ; [facility] Medications Administered Includes: Administered Medications from this encounter No Administered Medications Recorded Vital Signs Includes: Vital Signs from this encounter Vital Name 07/26/2021 01:16P Blood Pressure Sitting (mmHg) 152/98 Pulse Rate-Sitting (bpm) 79 Height (in) 72 Weight (lb) 201.6 Body Mass Index (kg/m2) 27.3 Body Surface Area (m2) 2.1 Note: rd Last Documented: On 07/26/2021 1:16PM ; [facility] Results Includes: Results discussed during this [...] Documented On 2 1:02PM ; [facility] No recent change in diet 05/07/2021 Last Documented On 2 1:02PM ; [facility] Not using alcohol 05/07/2021 Last Documented On 2 1:02PM ; [facility], [facility] Not using drugs 05/07/2021 Last Documented On 2 1:02PM ; [facility], [facility] Smoker 04/05/2021 Last Documented On 2 1:02PM ; [facility], [facility] Yes, current smoker. 04/05/2021 Last Documented On 2 1:02PM ; [facility], [facility] Not exercising regularly 04/05/2021 Last Documented On 2 1:02PM ; [facility], [facility] Smoking Status Unknown Procedures and Surgical History Includes: Procedures from this encounter Procedures Code Diagnosis Performing Provider Service L ocation Service Date intervention and counseling on cessation of tobacco use 4000F Last Documented On 2 1:02PM ; [facility], [facility] use of tobacco assessment performed 1000F Last Documented On 2 1:02PM ; [facility], [facility] no influenza immunization patient refuse d Last Documented On 2 1:02PM ; [facility], [facility] follow-up visit in one month with PCP fo r elevated BP Last Documented On 2 1:03PM ; [facility], [facility] an X-ray was performed [id number] Last Documented On 2 1:02PM ; [facility] an MRI was performed 04/27/2021-MRI Humberto @ [facility] ~ [id number] Last Documented On 2 1:02PM ; [facility], [facility] Medical History Includes: Medical History addressed during this encounter Description Last Updated No recent immunization for flu 2 Last Documented On 2 1:02PM ; [facility] No recent immunization for pneumococcal pneumonia 05/07/2021 Last Documented On 2 1:02PM ; [facility], [facility] Past medical history non-contributory Last Documented On 2 1:02PM ; [facility], [facility] Past Surgical History: pylanautel cyst r emoved from tail [id number] 04/05/2021 Last Documented On 2 1:02PM ; [facility] Family History Includes: Family History addressed during this encounter Description Last Updated No significant family history 05/07/2021 Last Documented On 2 1:02PM ; [facility] Review of Systems Includes: Review [...] Active Last Documented On 2 1:02PM ; [facility] Encounters Encounter Provider Location Date Check-In Time Check-Out Time Diagnosis WC FOLLOW UP/EST DAYANA MARQUEZ PA-C [facility] 07/27/19 22 1:00PM 1:36PM Insurance Includes: Active Insurance Policies Plan Name Member ID Group # Subscriber Relationship Effect hannah Dates - [id number] RENETTA BLUM Self 01/24/2021 - Unknown Clinical Notes Includes: Clinical Notes from this encounter No Clinical Notes Recorded
--- OUTSIDE RECORDS SUMMARY | 2024-02-13 08:56 | XMS_ITS | Encounter Summary ---
Author Organization [facility] Address [address] [place] [address] Care Team Providers Care Auto Camp Attendant Name Role Phone Pcp, No Primary Care [...] documented as of this encounter Care Teams Auto Camp Attendant Relationship Specialty Start Date End Date Pcp, No [address] [place] [address] PCP - General Family Medicine 05/13/23 documented as of this encounter
--- OUTSIDE RECORDS SUMMARY | 2024-02-13 08:56 | XMS_ITS | Clinical Summary ---
Author Organization [facility] , [facility] Address [address] [place] [address] Phone Care Team Providers Care Nutrition Instructor Name Role Phone Neal DOLL, Tyson Unavailable [phone] NO, PCP Unavailable Unavailable Reason for Visit and Chief Complaint Epidural Steroid Injection Problems Includes: Problems addressed during this encounter and other active Problems All Visits Onset Date Resolved Date Provider Condition S tatus Lower Back Pain 04/05/2021 DAYANA MARQUEZ PA-C Active Last Documented On 2 1:46PM ; [facility] Plan of Treatment No Plan [...] Relationship Effect hannah Dates 1 - [employer] [id number] RENETTA CARREON Self 01/24/2021 - Unknown Clinical Notes Includes: Clinical Notes from this encounter No Clinical Notes Recorded
--- OUTSIDE RECORDS SUMMARY | 2024-02-13 08:56 | XMS_ITS | Encounter Summary ---
Author Organization [facility] Address [address] [place] [address] Care Team Providers Care Java Tech Lead Name Role Phone Pcp, No Primary Care Provider Unavailabl e Encounter Details Date Type Department Care Team (Late st Contact Info) Description 05/21/2023 Abstract [facility] Orthopaedic Surgery & Sports Medicine [address] [place] [address] Christofer Romano MD [address] [place] [address] Social History Tobacco Use Types [...] documented as of this encounter Care Teams Java Tech Lead Relationship Specialty Start Date End Date Pcp, No [address] [place] [address] PCP - General Family Medicine 05/13/23 documented as of this encounter
--- OUTSIDE RECORDS SUMMARY | 2024-02-13 08:56 | XMS_ITS | Clinical Summary ---
Author Organization [facility] , [facility] Address [address] [place] [address] Phone Care Team Providers Care [employer] Executive Director Name Role Phone Tyson De Jesus MD Unavailable [phone] NO, PCP Unavailable Unavailable Reason for Visit and Chief Complaint WC EPIDURAL INJ Problems Includes: Problems addressed during this encounter and other active Problems All Visits Onset Date Resolved Date Provider Condition S tatus Lower Back Pain 04/05/2021 DAYANA MARQUEZ PA-C Active Last Documented On 2 1:46PM ; [facility] Plan of Treatment No Plan [...] Active Last Documented On 2 1:02PM ; [facility] Encounters Encounter Provider Location Date Check-In Time Check-Out Time Diagnosis WC EPIDURAL INJ Tyson De Jesus MD [facility] 11/24/19 22 11:55AM 12:09PM Insurance Includes: Active Insurance Policies Plan Name Member ID Group # Subscriber Relationship Effect hannah Dates 1 - [facility] [id number] RENETTA CARREON Self 01/24/2021 - Unknown Clinical Notes Includes: Clinical Notes from this encounter No Clinical Notes Recorded
--- OUTSIDE RECORDS SUMMARY | 2024-02-13 08:56 | XMS_ITS ---
Care Plan - [facility], [facility] Created on: February 13, 2024 RENETTA CARREON : 1975 Sex: Male Author [facility] Address [address] [place] [address] Phone Care Team Providers Care Hemodialysis Charge Nurse Name Role Phone Tyson De Jesus MD Unavailable Unavailable NO, PCP Unavailable Unavailable
--- OUTSIDE RECORDS SUMMARY | 2024-02-13 08:56 | XMS_ITS | Clinical Summary ---
Author Organization [facility] , [facility] Address [address] [place] [address] Phone Care Team Providers Care Honey Blender Name Role Phone Neal DOLL, Tyson Unavailable [phone] NO, PCP Unavailable Unavailable Reason for Visit and Chief Complaint Epidural Steroid Injection Problems Includes: Problems addressed during this encounter and other active Problems All Visits Onset Date Resolved Date Provider Condition S tatus Lower Back Pain 04/05/2021 DAYANA MARQUEZ PA-C Active Last Documented On 2 1:46PM ; [facility] Plan of Treatment No Plan [...] Subscriber Relationship Effect hannah Dates 1 - [facility] [id number] RENETTA CARREON Self 01/24/2021 - Unknown Clinical Notes Includes: Clinical Notes from this encounter No Clinical Notes Recorded
--- OUTSIDE RECORDS SUMMARY | 2024-02-13 08:56 | XMS_ITS | Encounter Summary ---
Author Organization [facility] Address [address] [place] [address] Care Team Providers Care Biztalk Administrator Name Role Phone Pcp, No Primary Care Provider Unavailabl e Reason for Visit * Reason Comments Med Refill Encounter Details Date Type Department Care Team ([facility] st Contact Info) Description 10/11/2022 Refill [facility] [address] [place] [address] Carole Hunt M, ASSOCIATE DESIGNER [address] [address] [place] [id number] Social History Tobacco Use Types Packs/Day Years [...] on filedocumented in this encounter Care Teams Biztalk Administrator Relationship Specialty Start Date End Date Pcp, Lala [address] [place] [address] PCP - General Family Medicine 05/13/23 documented as of this encounter
--- OUTSIDE RECORDS SUMMARY | 2024-02-13 08:56 | XMS_ITS | Encounter Summary ---
Author Organization [facility] Address [address] [place] [address] Care Team Providers Care Steel Molder Name Role Phone Pcp, No Primary Care Provider Unavailabl e Encounter Details Date Type Department Care Team (Late st Contact Info) Description 05/19/2023 Telephone [facility] Orthopaedic Surgery & Sports Medicine [address] [place] [address] Zahraa Chew RN TRAUMA & [...] place to sleep or slept in a halfway (including now)? No 05/14/2023 Utilities Answer Date [...] documented as of this encounter Care Teams Steel Molder Relationship Specialty Start Date End Date Pcp, No [address] [place] [address] PCP - General Family Medicine 05/13/23 documented as of this encounter
--- OUTSIDE RECORDS SUMMARY | 2024-02-13 08:56 | XMS_ITS | Encounter Summary ---
Author Organization [facility] Address [address] [place] [address] Care Team Providers Care Securities Trader Name Role Phone Pcp, No Primary Care [...] place to sleep or slept in a snf (including now)? No 05/14/2023 Utilities Answer Date [...] documented as of this encounter Care Teams Securities Trader Relationship Specialty Start Date End Date Pcp, No [address] [place] [address] PCP - General Family Medicine 05/13/23 documented as of this encounter
--- OUTSIDE RECORDS SUMMARY | 2024-02-13 08:56 | XMS_ITS | Encounter Summary ---
Author Organization [facility] Address [address] [place] [address] Care Team Providers Care Emergency Department Aide Name Role Phone Pcp, No Primary Care Provider Unavailabl e Reason for Visit * Reason Comments Follow-up Encounter Details Date Type Department Care Team (Late st Contact Info) Description 05/21/2023 9:50 AM EDT Office Visit [facility] Orthopaedic Surgery & Sports Medicine [address] [place] [address] Vasyl Montes MD [address] [place] [address] Hip pain, right (Primary Dx) [...] documented as of this encounter Care Teams Emergency Department Aide Relationship Specialty Start Date End Date Pcp, No [address] [place] [address] PCP - General Family Medicine 05/13/23 documented as of this encounter
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
--- OUTSIDE RECORDS SUMMARY | 2024-02-13 08:56 | XMS_ITS | Clinical Summary ---
Author Organization [facility] , [facility] Address [address] [place] [address] Phone Care Team Providers Care V Belt Mold Assembler And Curer Name Role Phone Neal DOLL, Tyson Unavailable [phone] NO, PCP Unavailable Unavailable Reason for Visit and Chief Complaint Epidural Steroid Injection Problems Includes: Problems addressed during this encounter and other active Problems All Visits Onset Date Resolved Date Provider Condition S tatus Lower Back Pain 04/05/2021 DAYANA MARQUEZ PA-C Active Last Documented On 2 1:46PM ; [facility] Plan of Treatment No Plan [...] Active Last Documented On 2 1:02PM ; [facility] Encounters Encounter Provider Location Date Check-In Time Check-Out Time Diagnosis Epidural Steroid Injection Tyson De Jesus MD 2 2:58PM 11:59PM Insurance Includes: Active Insurance Policies Plan Name Member ID Group # Subscriber Relationship Effect hannah Dates 1 - [facility] [id number] RENETTA CARREON Self 01/24/2021 - Unknown Clinical Notes Includes: Clinical Notes from this encounter No Clinical Notes Recorded
[2024-02-13 09:16] VITALS: BP 119/51; PULSE 84; RESP 18; TEMP 37.1; O2SAT 98
[2024-02-13] MEDS: SODIUM CHLORIDE 0.9% 10ML FLUSH SYRINGE 10 ML IV (09:16)
[2024-02-13] MEDS: RISANKIZUMAB RZAA IV (09:16)
[2024-02-13] MEDS: SODIUM CHLORIDE 0.9% IV (09:16)
[2024-02-13] MEDS: SODIUM CHLORIDE 0.9% 50ML BAG 50 ML IV (09:16)
[2024-02-13 09:46] VITALS: BP 130/87; PULSE 82; RESP 18; O2SAT 98
[2024-02-13 10:25] VITALS: BP 126/75; PULSE 88; RESP 18; O2SAT 98
== END 2024-02-13 10:35 | disposition home or self-care (01) ==
LOC: INF 08:53
PROVIDERS: PCP Family Medicine; Visit Provider Internal Medicine Gastroenterology
DX: K50.90 Crohn's disease, unspecified, without complications (principal)
CPT/HCPCS: 96413; J2327

== ENCOUNTER 2024-03-12 08:47 | Outpatient (CLI) | payer BC, SELFPAY ==
[2024-03-12] MEDS: WATER IV (09:18)
[2024-03-12] MEDS: RISANKIZUMAB RZAA IV (09:18)
[2024-03-12] MEDS: DEXTROSE 5% IV (09:18)
[2024-03-12] MEDS: SODIUM CHLORIDE 0.9% 50ML BAG 50 ML IV (09:18)
[2024-03-12 09:25] VITALS: BP 123/84; PULSE 75; RESP 18; TEMP 36.7; O2SAT 99
[2024-03-12 10:00] VITALS: BP 134/75; PULSE 77
[2024-03-12 10:30] VITALS: BP 145/86; PULSE 81
== END 2024-03-12 10:35 | disposition home or self-care (01) ==
LOC: INF 08:48
PROVIDERS: PCP Family Medicine; Visit Provider Internal Medicine Gastroenterology
DX: K50.90 Crohn's disease, unspecified, without complications (principal)
CPT/HCPCS: 96413; J2327; J7060

== ENCOUNTER 2024-04-09 09:00 | Outpatient (CLI) | payer BC, SELFPAY ==
[2024-04-09 09:24] LABS: Basophils % 0.4 % (0.1-2.0); Eosinophils # 0.2 K/mm3 (0.0-0.4); Eosinophils % 1.8 % (0.1-12.0); Hematocrit 44.6 % (42.0-52.0); Hemoglobin 14.3 g/dL (14.1-18.0); Lymphocytes # 1.9 K/mm3 (0.7-4.5); Lymphocytes % 21.3 % (10-50); Mean Corpuscular HGB Conc 32.1 g/dL (31.8-35.4); Mean Corpuscular Volume 80.9 fl (80-94); Monocytes # 0.7 K/mm3 (0.1-1.0); Monocytes % 7.6 % (1.7-9.3); Neutrophils # 6.1 K/mm3 (1.8-7.8); Neutrophils % 68.6 % (37.0-80.0); Platelet Count 244 K/mm3 (142-424); Red Blood Count 5.51 M/mm3 (4.60-6.20); Red Cell Distribution Width 14.6 % (11.5-17.5)
[2024-04-09] MEDS: WATER IV (09:26)
[2024-04-09] MEDS: RISANKIZUMAB RZAA IV (09:26)
[2024-04-09] MEDS: SODIUM CHLORIDE 0.9% 50ML BAG 50 ML IV (09:26)
[2024-04-09] MEDS: DEXTROSE 5% IV (09:26)
[2024-04-09 09:32] VITALS: BP 145/78; PULSE 64; RESP 18; TEMP 36.8; O2SAT 98
[2024-04-09 09:40] LABS: Alanine Aminotransferase 33 U/L (12-78); Albumin Level 4.3 g/dl (3.5-5.0); Albumin/Globulin Ratio 1.9 (1.1-1.8); Alkaline Phosphatase 57 U/L (38-126); Anion Gap 10.8 mEq/L (5-15); Aspartate Amino Transferase 26 U/L (17-59); Bilirubin,Total 0.4 mg/dl (0.2-1.3); Blood Urea Nitrogen 13 mg/dl (9-20); Calcium 9.5 mg/dl (8.4-10.2); Carbon Dioxide 30 mmol/L (22.0-30.0); Chloride 104 mmol/L (98-107); Estimated Glomerular Filt Rate 104 ml/min (>60); GFR (African American) 126 ML/MIN (>60); Globulin 2.3 g/dL (1.3-3.2); Glucose 83 mg/dl (74-100); Potassium 3.8 mmoL/L (3.5-5.1); Sodium 141 mmol/L (136-145); Total Protein,Serum 6.6 g/dl (6.3-8.2)
[2024-04-09 09:46] LABS: C-Reactive Protein 2.5 mg/L (0-4)
[2024-04-09 10:11] LABS: Erythrocyte Sedimentation Rate 5 mm/hr (0-15)
== END 2024-04-09 10:35 | disposition home or self-care (01) ==
PROVIDERS: Nurse Practitioner Family; PCP Family Medicine; Visit Provider Internal Medicine Gastroenterology
DX: K50.10 Crohn's disease of large intestine without complications (principal)
CPT/HCPCS: 80053; 85025; 85651; 86140; 96413; J2327; J7060

== ENCOUNTER 2024-05-20 14:52 | Outpatient (CLI) | payer BC, SELFPAY ==
[2024-05-20 15:39] LABS: Basophils # 0.1 K/mm3 (0-0.2); Basophils % 0.9 % (0.1-2.0); Eosinophils # 0.5 K/mm3 (0.0-0.4); Eosinophils % 6.3 % (0.1-12.0); Hematocrit 46.9 % (42.0-52.0); Hemoglobin 15.5 g/dL (14.1-18.0); Lymphocytes # 1.3 K/mm3 (0.7-4.5); Lymphocytes % 16.8 % (10-50); Mean Corpuscular Hemoglobin 26.9 pg (27.0-31.2); Mean Corpuscular Volume 81.3 fl (80-94); Mean Platelet Volume 9.2 fl (7.4-10.4); Monocytes # 0.6 K/mm3 (0.1-1.0); Monocytes % 7.9 % (1.7-9.3); Neutrophils # 5.1 K/mm3 (1.8-7.8); Platelet Count 248 K/mm3 (142-424); Red Blood Count 5.77 M/mm3 (4.60-6.20); Red Cell Distribution Width 14.3 % (11.5-17.5); White Blood Count 7.5 K/mm3 (4.8-10.8)
[2024-05-20 15:59] LABS: Albumin Level 4.8 g/dl (3.5-5.0); Chloride 106 mmol/L (98-107); Potassium 4.3 mmoL/L (3.5-5.1); Sodium 141 mmol/L (136-145)
[2024-05-20 16:02] LABS: Alanine Aminotransferase 40 U/L (12-78); Albumin/Globulin Ratio 2.1 (1.1-1.8); Alkaline Phosphatase 63 U/L (38-126); Anion Gap 11.3 mEq/L (5-15); Aspartate Amino Transferase 36 U/L (17-59); Bilirubin,Total 0.6 mg/dl (0.2-1.3); Blood Urea Nitrogen 13 mg/dl (9-20); Carbon Dioxide 28 mmol/L (22.0-30.0); Estimated Glomerular Filt Rate 91 ml/min (>60); GFR (African American) 110 ML/MIN (>60); Globulin 2.3 g/dL (1.3-3.2); Iron 87 ug/dL (49-181); Total Protein,Serum 7.1 g/dl (6.3-8.2)
[2024-05-20 16:03] LABS: Erythrocyte Sedimentation Rate 1 mm/hr (0-15); Glucose 96 mg/dl (74-100)
[2024-05-20 16:12] LABS: Total Iron Binding Capacity 335 ug/dL (261-462)
[2024-05-20 16:38] LABS: Ferritin 62.7 ng/ml (17.9-464)
[2024-05-20 17:07] LABS: 25-OH Vitamin D, Total 30.2 ng/mL (30-100)
[2024-05-20 17:41] LABS: Vitamin B12 > 1000 pg/mL (239-931)
== END 2024-05-20 23:59 | disposition home or self-care (01) ==
LOC: LAB 14:53
PROVIDERS: PCP Family Medicine; Visit Provider Nurse Practitioner Family
DX: K50.10 Crohn's disease of large intestine without complications (principal)
CPT/HCPCS: 36415; 80053; 82306; 82607; 82728; 83540; 83550; 85025; 85651; 86140

== ENCOUNTER 2024-08-19 14:34 | Outpatient (CLI) | payer BC, SELFPAY ==
[2024-08-19 15:03] LABS: Basophils # 0.1 K/mm3 (0-0.2); Basophils % 0.9 % (0.1-2.0); Eosinophils # 0.3 Kmm3 (0.0-0.4); Eosinophils % 4.5 % (0.1-12.0); Immature Granulocytes # 0.02 10^3uL; Immature Granulocytes % 0.3 %; Lymphocytes # 1.5 K/mm3 (0.7-4.5); Lymphocytes % 22.5 % (10-50); Mean Corpuscular HGB Conc 33.3 g/dL (31.8-35.4); Mean Corpuscular Hemoglobin 27.6 pg (27.0-31.2); Mean Corpuscular Volume 82.8 fl (80-94); Mean Platelet Volume 9.5 fl (7.4-10.4); Monocytes # 0.6 K/mm3 (0.1-1.0); Monocytes % 8.8 % (1.7-9.3); Neutrophils # 4.1 K/mm3 (1.8-7.8); Nucleated Red Blood Cells # 0 10^3/uL; Nucleated Red Blood Cells % 0 %; Platelet Count 262 K/mm3 (142-424); Red Cell Distribution Width 12.5 % (11.5-17.5); Red Cell Distribution Width-SD 37.5 fL; White Blood Count 6.5 K/mm3 (4.8-10.8)
[2024-08-19 15:29] LABS: Albumin Level 4.6 g/dl (3.5-5.0); Chloride 106 mmol/L (98-107); Sodium 140 mmol/L (136-145)
[2024-08-19 15:32] LABS: Alanine Aminotransferase 29 U/L (12-78); Albumin/Globulin Ratio 1.9 (1.1-1.8); Alkaline Phosphatase 61 U/L (38-126); Aspartate Amino Transferase 28 U/L (17-59); Blood Urea Nitrogen 10 mg/dl (9-20); Carbon Dioxide 30 mmol/L (22.0-30.0); Estimated Glomerular Filt Rate 104 ml/min (>60); GFR (African American) 125 ML/MIN (>60); Globulin 2.4 g/dL (1.3-3.2)
[2024-08-19 15:33] LABS: Calcium 10.9 mg/dl (8.4-10.2); Glucose 98 mg/dl (74-100)
[2024-08-19 15:38] LABS: C-Reactive Protein 3.6 mg/L (0-4)
[2024-08-19 15:56] LABS: Erythrocyte Sedimentation Rate 1 mm/hr (0-15)
== END 2024-08-19 23:59 | disposition home or self-care (01) ==
LOC: LAB 14:35
PROVIDERS: PCP Family Medicine; Visit Provider Nurse Practitioner Family
DX: K50.10 Crohn's disease of large intestine without complications (principal)
CPT/HCPCS: 36415; 80053; 85025; 85651; 86140

== ENCOUNTER 2025-02-21 09:55 | Outpatient (CLI) | payer BC, SELFPAY ==
[2025-02-21 10:44] LABS: Hematocrit 50.6 % (42.0-52.0); Hemoglobin 16.6 g/dL (14.1-18.0); Immature Granulocytes % 0.2 %; Mean Corpuscular HGB Conc 32.8 g/dL (31.8-35.4); Mean Corpuscular Hemoglobin 27.6 pg (27.0-31.2); Mean Corpuscular Volume 84.2 fl (80-94); Nucleated Red Blood Cells % 0 %; Platelet Count 222 K/mm3 (142-424); Red Blood Count 6.01 M/mm3 (4.60-6.20); Red Cell Distribution Width-SD 36.8 fL; White Blood Count 5.8 K/mm3 (4.8-10.8)
[2025-02-21 11:27] LABS: Alanine Aminotransferase 33 U/L (12-78); Albumin Level 4.6 g/dl (3.5-5.0); Albumin/Globulin Ratio 1.8 (1.1-1.8); Alkaline Phosphatase 60 U/L (38-126); Anion Gap 13.1 mEq/L (5-15); Aspartate Amino Transferase 27 U/L (17-59); Bilirubin,Total 0.9 mg/dl (0.2-1.3); Blood Urea Nitrogen 11 mg/dl (9-20); Calcium 9.4 mg/dl (8.4-10.2); Carbon Dioxide 28 mmol/L (22.0-30.0); Chloride 104 mmol/L (98-107); Creatinine,Serum 0.90 mg/dl (0.66-1.25); Estimated Glomerular Filt Rate 90 ml/min (>60); GFR (African American) 109 ML/MIN (>60); Globulin 2.5 g/dL (1.3-3.2); Glucose 110 mg/dl (74-100); Iron 106 ug/dL (49-181); Potassium 4.1 mmoL/L (3.5-5.1); Sodium 141 mmol/L (136-145); Total Protein,Serum 7.1 g/dl (6.3-8.2)
[2025-02-21 11:36] LABS: C-Reactive Protein 2.1 mg/L (0-4); Total Iron Binding Capacity 292 ug/dL (261-462)
[2025-02-21 11:43] LABS: 25-OH Vitamin D, Total 27.2 ng/mL (30-100)
[2025-02-21 12:02] LABS: Ferritin 90.5 ng/ml (17.9-464)
[2025-02-21 12:16] LABS: Vitamin B12 721 pg/mL (239-931)
== END 2025-02-21 23:59 | disposition home or self-care (01) ==
LOC: LAB 09:56
PROVIDERS: PCP Family Medicine; Visit Provider Nurse Practitioner Family
DX: K50.10 Crohn's disease of large intestine without complications (principal)
CPT/HCPCS: 36415; 80053; 82306; 82607; 82728; 83540; 83550; 85025; 85651; 86140